=== PATIENT | male | born 1935 | race Two or more races ===

== ENCOUNTER 2024-05-13 09:53 | Inpatient (IN) | payer OTHER, MEDICAID, MEDICARE, SELFPAY ==
[2024-05-13] VITALS (11 sets, daily range): BP systolic 105–166; BP diastolic 56–76; PULSE 16–115; RESP 14–20; TEMP 36.3–37.5; O2SAT 95–99; BMI 26.9
--- NOTE | 2024-05-13 10:16 | EKG_ITS ---
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
--- NOTE | 2024-05-13 10:16 | XR_ITS ---
Examination: CT brain head without contrast. 2-D sagittal coronal reconstructions Date and time of exam:May 13, 2024 1204 hours INDICATIONS: Altered mental status today CTDI: vol (mGy):54.5 DLP: (mGycm):1134 Technique: Multiple CT axial sections of the brain have been obtained, 5 mm slice thickness. Contrast has not been administered. 2-D sagittal, coronal reconstructions have been obtained Low dose protocols were performed. One or more of the following dose reduction techniques were used; automated exposure control, adjustment of the mA and/or KV according to patient size, use of iterative reconstruction technique. Findings: No significant ventricular enlargement. Small old appearing infarct left cerebellar hemisphere Intra-axial or extra-axial hemorrhage density is not seen. No mass effect or midline shift Basal cisterns are not remarkable. Fourth ventricle is midline. Cranial vault intact. Impression: Negative for acute hemorrhage, mass effect or midline shift
--- NOTE | 2024-05-13 10:16 | PD.EDWEAK ---
ED Weakness RME/HPI General Chief complaint: Altered Mental Status Stated complaint: AMS Time Seen by Provider: 05/13/24 10:07 Arrival date/time: 05/13/24 09:53 RME / HPI RME / HPI Narrative: This section includes all my notes and documentations, including HPI, PE, MDM, Procedure Notes, and PLAN. Dipak Conner MD HPI: 88 year old male with PMH of Parkinson's disease, CVA, hypertension, type 2 diabetes, hypothyroidism, BPH presents to the ED BIBA from home for evaluation of weakness today. Patient reports this morning while trying to get out of bed felt very weak and unsteady. No other associated symptoms reported. Denies fevers, chills, sweats, congestion, cough, shortness of breath, chest pain, abdominal pain, n/v/d, or urinary symptoms. Per medics, daughter who was at home reported patient has similar presentation with previous UTI's. When I talked to the daughter who lives with him over the phone later, she had completely different story. Normally, patient is alert and oriented and ambulatory. Last night, he went to bed around 7 PM and he was his normal self. Daughter went to work this morning without seeing him. Around 8 to 8:30 AM, she got a phone call from [facility] caregivers. Who noted severe confusion and urinary incontinence. ROS: Can't obtain from the patient due to AMS. Physical Exam: General: Alert and oriented X 1. No acute distress. Eyes: Conjunctivae and lids clear. EOMI. PERRL. ENT: No nasal congestion. Pharynx normal. Tympanic membrane normal bilaterally. Neck: Supple. No carotid bruit. No JVD. Heart: RRR. Lungs: No respiratory distress. Good air movement. No rhonchi, wheezing, rales. Abdomen: Soft and nontender. Legs: No clubbing, cyanosis, edema. Skin: Warm and dry. Neuro: Alert and oriented X 1. Cranial Nerves II-XII grossly intact. No peripheral motor deficits. Musculoskeletal: All major joints and bones are not tender with no limited ROM. I reviewed EMS notes. I reviewed all diagnostic test results. My interpretation of the EKG is sinus rhythm with nonspecific ST-T changes. My interpretation of the chest x-ray is equivocal infiltrates. My review of the head CT report is no acute findings. Blood tests and urine tests are unremarkable, except Mg 1.4 At this point, diagnoses include AMS, pneumonia, and hypomagnesemia. Treatment here included Rocephin 1 g IV and Zithromax 500 mg IV and MgSO4 2 gram IV. No significant improvement noted subjectively and objectively. I discussed the case with our telehealth neurologist and our hospitalist. About the presentation and exam and diagnostics and treatments here. And need of further care in the hospital. Will accept the patient. Dipak Conner MD Related Data Home Medications ?Medication ?Instructions ?Recorded ?Confirmed Levothyroxine * (SYNTHROID *) 50 mcg PO DAILY ##0 08/18/12 01/22/23 Metformin Hcl 1,000 mg PO BID ##0 08/18/12 01/22/23 gabapentin 300 mg capsule 300 mg PO HS ##0 08/18/12 01/22/23 (Neurontin) tamsulosin 0.4 mg capsule (Flomax) 0.4 mg PO DAILY ##0 08/18/12 01/22/23 clopidogrel 75 mg tablet (Plavix) 75 mg PO QDAY #0 tabs 11/02/13 01/22/23 insulin glargine 100 unit/mL 10 unit subcut HS 90 days ##0 11/03/13 01/22/23 subcutaneous solution (Lantus U-100 Insulin) donepezil 5 mg tablet (Aricept) 10 mg PO HS #0 tabs 03/14/15 01/22/23 albuterol sulfate 4 mg 4 mg PO BID ##0 05/18/16 01/22/23 tablet,extended release,12 hr atorvastatin 10 mg tablet (Lipitor) 10 mg PO HS #0 tabs 05/18/16 01/22/23 dutasteride 0.5 mg capsule 0.5 mg PO QDAY 11/26/17 01/22/23 primidone 50 mg tablet 25 mg PO DAILY 11/26/17 01/22/23 baclofen 10 mg tablet 10 mg PO QHSPRN PRN Muscle Spasm 08/02/21 01/22/23 carbidopa ER 50 mg-levodopa 200 mg 1 tab PO BID 08/02/21 01/22/23 tablet,extended release glipizide 10 mg tablet 10 mg PO BID 08/02/21 01/22/23 loratadine 10 mg tablet 10 mg PO QAM 08/02/21 01/22/23 omeprazole 20 mg tablet,delayed 20 mg PO QDAY 08/02/21 01/22/23 release acetaminophen 500 mg tablet 500 mg PO Q6H PRN Pain 12/05/21 01/22/23 (Acetaminophen Extra Strength) multivitamin 1 tab PO QAM 12/05/21 01/22/23 albuterol sulfate 4 mg tablet 4 mg PO BID 10/15/23 10/15/23 aspirin 81 mg tablet 81 mg PO QPM 10/15/23 10/16/23 atorvastatin 10 mg tablet 10 mg PO QPM 10/15/23 10/15/23 baclofen 10 mg tablet 10 mg PO QDAY 10/15/23 10/15/23 donepezil 10 mg tablet 10 mg PO QDAY 10/15/23 10/15/23 dutasteride 0.5 mg capsule 0.5 mg PO QDAY 10/15/23 10/15/23 gabapentin 300 mg capsule 300 mg PO QPM 10/15/23 10/16/23 levothyroxine 50 mcg tablet 50 mcg PO QDAY 10/15/23 10/16/23 loratadine 10 mg tablet 10 mg PO QDAY 10/15/23 10/15/23 omeprazole 20 mg capsule,delayed 20 mg PO TID 10/15/23 10/16/23 release primidone 50 mg tablet 50 mg PO BID 10/15/23 10/16/23 tamsulosin 0.4 mg capsule 0.4 mg PO QDAY 10/15/23 10/15/23 Previous Rx's ?Medication ?Instructions ?Recorded cephalexin 500 mg capsule 500 mg PO QID #20 caps 12/06/21 Allergies Allergy/AdvReac Type Severity Reaction Status Date / Time No Known Allergies Allergy Verified 11/09/23 07:56 Review of Systems Review of Systems Systems Reviewed: All systems reviewed, normal except as documented Past Medical History Past Medical History NEUROLOGIC: Positive Cerebrovascular Accident (2013) and Parkinson's Disease CARDIAC: Positive Atherosclerotic Heart Disease, Hypercholesterolemia, Aneurysm (TRIPLE A) and Hypertension ENDOCRINE: Positive Diabetes Mellitus Type 2 and Hypothyroidism Family History FAMILY HISTORY: Negative Family Cardiac Disorders Surgical History SURGICAL: Positive Coronary Stent; Negative Endocrine Surgery or Ear Surgery Social History SMOKING STATUS: Former smoker (Patient a former tobacco smoker; per daughter he started smoking at the age of 12 and he quit smoking about 12 years ago. ) SECOND HAND EXPOSURE: No SUBSTANCE USE: does not use ED Exam Narrative Physical exam: As noted in HPI Course Quality Measures none Orders Category Date Time Status Bedside COVID-19 Antigen Test NOW Care 05/13/24 10:17 Active Bedside Influenza A&B Antigen Test NOW Care 05/13/24 10:17 Completed COVID-19 Screening Questionnaire NOW Care 05/13/24 14:18 Active Decision to Admit X1 Care 05/13/24 14:18 Completed EKG (ED ONLY) *Do not use* NOW Care 05/13/24 10:16 Completed Saline [Insert IV] NOW Care 05/13/24 10:16 Active Straight [In and Out Catheter] X1 Care 05/13/24 10:[address] head/brain wo con Stat Exams 05/13/24 10:16 Completed EKG (ED Only) Stat Exams 05/13/24 10:16 Draft XR chest 1V portable Stat Exams 05/13/24 10:16 Completed BNP [B-Type Natriuretic Peptide] Stat Lab 05/13/24 10:20 Completed CBC Stat Lab 05/13/24 10:20 Completed CMP [Comprehensive Metabolic Panel] Stat Lab 05/13/24 10:20 Completed Magnesium Stat Lab 05/13/24 10:20 Completed TSH [Thyroid Stimulating Hormone] Stat Lab 05/13/24 10:20 Completed Troponin I Stat Lab 05/13/24 10:20 Completed UA [Urinalysis] Stat Lab 05/13/24 12:37 Completed Azithromycin Inj [Zithromax Inj] 500 mg Med 05/13/24 11:42 Discontinued Sodium Chloride 0.9% 250 ml [Ns] 250 ml IV X1 Magnesium Sulfate 2 GM Ivpb [Magnesium Sulfate Ivpb] Med 05/13/24 13:31 Active 2 gm in 50 ml IV X1 cefTRIAXone/D5w 1gm IV premix [Rocephin/D5w 1gm IV Med 05/13/24 11:42 Discontinued premix] 50 ml IV X1 Reevaluation(s) Reevaluation #1: 2300: I spoke with the patients daughter. States patient was at his baseline ~ 07:30pm last night. This morning the home health nurse found patient to be confused and urinated on self. At baseline patient is awake, alert, oriented x3, conversive. Will initiate stroke alert. Vital Signs Vital signs: Vital Signs Temperature 99.5 F 05/13/24 09:57 Pulse Rate 92 05/13/24 09:57 Respiratory Rate 19 05/13/24 09:57 Blood Pressure 130/60 05/13/24 09:57 Pulse Oximetry (%) 96 05/13/24 09:57 Oxygen Delivery Method Room Air 05/13/24 09:57 Pulse ox is 96% on room air which is adequate. Weakness MDM Narrative MDM Narrative:: Flakita Nunez am scribing for and in the presence of Dr. Conner. Patient data External records reviewed:: [facility] previous records (I reviewed admission from 10/14/2023 through 10/18/2023) Clinical information provided by:: patient, EMS and family Social determinants that could affect healthcare access:: none Patient has the following chronic illnesses:: Parkinson's disease, CVA, hypertension, type 2 diabetes, hypothyroidism, BPH How is presenting disease/condition affected by chronic disease/condition?: exacerbated by Evaluation data The following diagnostics were reviewed and interpreted by me:: lab results, radiology exam(s) and EKG tracing(s) (My interpretation of the EKG is: Sinus rhythm (92 bpm) with nonspecific ST-T changes. Dipak Conner MD) Lab and/or radiology exams considered but not ordered:: None Interpretation Summary: Ordering Physician: Dipak Conner MD Date of Service: 05/13/24 Procedure(s): XR chest 1V portable Accession Number(s): [id number] cc: Dipak Conner MD; Jeramie Jessica MD; Lamberto Grey MD~ Examination: AP chest single view Technique one AP portable upright chest single view Exam date and time: May 13, 2024 1047 hours Comparison March 21, 2022 INDICATIONS: Weakness shortness of breath beginning 3 days ago. FINDINGS: Mild opacity in the left upper lobe No significant cardiac enlargement Reduced inspiratory effort Prominent osteopenia IMPRESSION: Suspicious for early left upper lobe pneumonia Dictated By: Jeramie Jessica MD Signed By: <Electronically signed by Jeramie Jessica MD in OV> 05/13/24 1059 Medications / Prescriptions Medications or Prescriptions considered but not ordered:: None Medication administrations:: Medication Administration History Magnesium Sulfate (Magnesium Sulfate Ivpb) 2 gm in 50 mls @ 25 mls/hr IV X1 ONE Stop: 05/13/24 15:30 Discontinued Medications Azithromycin 500 mg/ Sodium (Chloride) 250 mls @ 250 mls/hr IV X1 ONE Stop: 05/13/24 12:41 Last Admin: 05/13/24 14:01 Dose: 250 mls/hr Documented By: DEE DEE Ceftriaxone Sodium/Dextrose (Rocephin/D5w 1gm Iv Premix) 50 mls @ 100 mls/hr IV X1 ONE Stop: 05/13/24 12:11 Last Infusion: 05/13/24 13:00 Dose: Infused Documented By: Admin: 05/13/24 12:27 Dose: 100 mls/hr Documented By: DEE DEE Rocephin and Zithromax and MgSO4 2 gram IV Consultations Consultation(s) initiated? (list below): No Diagnosis Weakness Differential Diagnosis: acute myocardial infarction, anemia, hypoglycemia, hypothyroidism, rhabdomyolysis, sepsis and dehydration Most likely diagnosis given after review of the tests above:: AMS and pneumonia and hypomagnesemia Admission Indicated Admission indicated?: indicated Explain why admission is indicated or not indicated:: AMS and pneumonia and hypomagnesemia Admission Request Was there a request for admission?: Yes Admission Attestation Admission request attestation: Discussed case with Hospitalist service regarding admission. Discussed patients ED course, exam findings, labs, and radiology results. The Hospitalist [agrees,declines] to accept the patient for admission. Disposition Plan Disposition Plan: Admit Discharge Plan Plan Patient Disposition: Admit Acute Care w/in Hospital Prescriptions/Referrals Prescriptions/Med Rec: No Action dutasteride 0.5 mg capsule 0.5 mg PO QDAY primidone 50 mg tablet 25 mg PO DAILY tamsulosin [Flomax] 0.4 MG capsule,extended release 24hr 0.4 mg PO DAILY Qty: 0 gabapentin [Neurontin] 300 MG capsule 300 mg PO HS Qty: 0 Levothyroxine * (SYNTHROID *) 50 MCG tablet 50 mcg PO DAILY Qty: 0 Metformin Hcl 1,000 MG tablet 1,000 mg PO BID Qty: 0 clopidogrel [Plavix] 75 MG tablet 75 mg PO QDAY Qty: 0 insulin glargine [Lantus U-100 Insulin] 100 U/ML solution 10 unit Sub-Q HS 90 Days Qty: 0 donepezil [Aricept] 5 MG tablet 10 mg PO HS Qty: 0 atorvastatin [Lipitor] 10 MG tablet 10 mg PO HS Qty: 0 albuterol sulfate 4 MG tablet extended release 12 hr 4 mg PO BID Qty: 0 multivitamin Tablet 1 tab PO QAM Rx Instructions: Bottle also said Multimineral. acetaminophen [Acetaminophen Extra Strength] 500 mg Tablet 500 mg PO Q6H PRN (Reason: Pain) cephalexin 500 mg capsule 500 mg PO QID Qty: 20 0RF glipizide 10 mg Tablet 10 mg PO BID carbidopa-levodopa 50-200 mg tablet extended release 1 tab PO BID Patient Comments: TAKE 1 TABLET BY MOUTH TWICE DAILY baclofen 10 mg tablet 10 mg PO QHSPRN PRN (Reason: Muscle Spasm) loratadine 10 mg Tablet 10 mg PO QAM omeprazole 20 mg Tablet,Delayed Release (Dr/Ec) 20 mg PO QDAY primidone 50 mg Tablet 50 mg PO BID tamsulosin 0.4 mg Capsule 0.4 mg PO QDAY atorvastatin 10 mg Tablet 10 mg PO QPM donepezil 10 mg Tablet 10 mg PO QDAY albuterol sulfate 4 mg Tablet 4 mg PO BID baclofen 10 mg Tablet 10 mg PO QDAY levothyroxine 50 mcg Tablet 50 mcg PO QDAY gabapentin 300 mg Capsule 300 mg PO QPM omeprazole 20 mg Capsule,Delayed Release(Dr/Ec) 20 mg PO TID aspirin 81 mg Tablet 81 mg PO QPM loratadine 10 mg Tablet 10 mg PO QDAY dutasteride 0.5 mg Capsule 0.5 mg PO QDAY Referrals: Lamberto Grey MD [Primary Care Provider] - In 1 week Problem List Clinical Impression: Altered mental status, Pneumonia, Hypomagnesemia Patient/Caregiver Discharge Instructions Print Language: Turkish Stand Alone Forms: Dionne Award Info., Patient Portal Info Letter
[2024-05-13 10:27] LABS: Basophils # (Auto) 0.1 Thou/mm3 (0.0-0.2); Basophils % (Auto) 1 % (0-2.5); Eosinophils # (Auto) 0.3 Thou/mm3 (0.0-0.5); Eosinophils % (Auto) 3 % (0-10); Hematocrit 36.7 % (41.0-53.0); Hemoglobin 11.9 g/dL (13.5-16.0); Immature Granulocytes % (Auto) 4 % (0-0); Lymphocytes # (Auto) 0.9 Thou/mm3 (1.0-4.8); Lymphocytes % (Auto) 8 % (10-50); Mean Corpuscular HGB Conc 32.4 g/dl (31.0-37.0); Mean Corpuscular Hemoglobin 28.7 pg (25.0-35.0); Mean Corpuscular Volume 88 fL (80-100); Monocytes # (Auto) 1.7 Thou/mm3 (0.0-0.8); Monocytes % (Auto) 16 % (0-12); Neutrophils # (Auto) 7.7 Thou/mm3 (1.8-7.7); Neutrophils % (Auto) 70 % (37-80); Nucleated Red Blood Cell % 0 /100 WBC (0); Platelet Count 296 Thou/mm3 (140-440); RDW Standard Deviation 49.9 fL (35.1-43.9); Red Blood Count 4.15 Miln/mm3 (4.50-5.90); White Blood Count 11.1 Thou/mm3 (3.8-10.6)
--- NOTE | 2024-05-13 10:30 | PC.NURSE ---
DARI; per EMS report, pt coming from [facility]; per family, pt is more confused and family states that he is ambulatory but today, he was exhibting ataxic gait. Pt has hx of CVA that has left him with L-sided deficits. Pt also has HTN and hypothyroidism. Pt connected to monitors at this time.
[2024-05-13 10:44] LABS: B-Type Natriuretic Peptide 41 pg/mL (0-100)
[2024-05-13 10:54] LABS: Alanine Aminotransferase 61 U/L (10-49); Albumin, Serum 4.3 gm/dL (3.4-4.8); Albumin/Globulin Ratio 1.6 (1.2-2.2); Alkaline Phosphatase 88 U/L (46-116); Anion Gap 7 (7-16); Aspartate Amino Transferase 60 U/L (0-34); BUN/Creatinine Ratio 17 Ratio (12-20); Bilirubin,Total 0.5 mg/dL (0.3-1.2); Blood Urea Nitrogen 17 mg/dL (9-23); Calcium 9.3 mg/dL (8.3-10.6); Calcium (Corrected) 9.3 mg/dL (8.5-10.1); Chloride 98 mMol/L (98-107); Estimated Creatinine Clearance 44.4 mL/min (>60); Globulin 2.7 gm/dL (2.3-3.5); Glucose 193 mg/dL (74-106); Magnesium 1.4 mg/dL (1.6-2.6); Osmolality,Calculated 272 (275-295); Sodium 133 mMol/L (136-145); Troponin I < 0.020 ng/mL (0.0-0.045); eGFR > 60 See Note
[2024-05-13] MEDS: cefTRIAXone/D5w 1gm IV premix 50 ML IV (12:27)
[2024-05-13 12:47] LABS: Collection Type, Urine Clean Catch
[2024-05-13 12:51] LABS: Bilirubin,Urine Negative (Negative); Blood,Urine Negative (Negative); Clarity,Urine Clear (Clear/Hazy); Color,Urine Lt-Yellow (Lt Yel-Yel); Glucose, Urine Trace (Negative); Ketones,Urine Negative (Negative); Leukocyte Esterase,Urine Negative (Negative); Nitrite,Urine Negative (Negative); Protein,Urine Negative (Neg - Trace); RBC,Urine 2 /hpf (0-3); Squamous Epithelial Cell,Urine 1 /hpf (0-5); Urobilinogen,Urine Negative mg/dL (0.0-1.0); WBC,Urine 1 /hpf (0-5)
--- NOTE | 2024-05-13 13:28 | PC.NURSE ---
stroke alert called per SYLVIE Ross at 0730 last pm per family.
--- NOTE | 2024-05-13 13:30 | PC.NURSE ---
Per Dr. Conner no CTA to be done for stroke alert requesting teleneuro consult first and will see what teleneurologist reccomends.
--- NOTE | 2024-05-13 13:42 | PC.NURSE ---
Dr. Mir Irving, teleneurologist consulting with patient, son at bedside.
--- NOTE | 2024-05-13 13:49 | PC.NURSE ---
Per Dr. Mir Irving he will call Dr. Conner regarding consult and reccomendations, not a candidate for [facility].
[2024-05-13] MEDS: AZITHROMYCIN INJ 500 MG in SODIUM CHLORIDE 0.9% 250 ML 250 ML 250 MG IV (14:01)
--- NOTE | 2024-05-13 14:02 | PD.TNEURO ---
Tele Neuro Consultation Consultation Date 05/13/24 Most Recent Vital Signs Last Vital Signs Temp 99.5 F 05/13/24 11:49 Pulse 16 L 05/13/24 13:51 Resp 17 05/13/24 13:51 BP 122/71 05/13/24 13:51 Pulse Ox 96 05/13/24 13:51 O2 Del Method Room Air 05/13/24 13:51 Consultation Narrative [facility] Tele[facility]urology Consult [facility] Patient Name:???Obdulio Manuel Date of :???1935 Identification Number:??? Date of Service:???05/13/2024 13:38:59 Diagnosis:?R41.0 - Disorientation, unspecified Impression: ?88 y/o man with h/o DM, dementia, hypothyroidism, COPD, CAD, AAA and lung cancer who presents with AMS and generalized weakness. Patient back to his baseline. Admit for AMS work-up. Our recommendations are outlined below. Recommendations: ? Stroke/Telemetry Floor ? Neuro Checks ? Bedside Swallow Eval ? DVT Prophylaxis ? IV Fluids, Normal Saline ? Head of Bed 30 Degrees ? Euglycemia and Avoid Hyperthermia (PRN Acetaminophen) ? Initiate Clopidogrel 75 mg daily ? Antihypertensives PRN if Blood pressure is greater than 220/120 or there is a concern for End organ damage/contraindications for permissive HTN. If blood pressure is greater than 220/120 give labetalol PO or IV or Vasotec IV with a goal of 15% reduction in BP during the first 24 hours. ?toxic, metabolic and infectious work-up as per ED and primary team Sign Out: ? Discussed with Emergency Department Provider Advanced Imaging: Advanced Imaging Deferred because: Low NIHSS and patient is back to his baseline. Hospice patient. Metrics: Last Known Well: 05/12/2024 19:00:00 Dispatch Time: 05/13/2024 13:38:59 Arrival Time: 05/13/2024 09:53:00 Initial Response Time: 05/13/2024 13:40:06Symptoms: generalized weakness. Initial patient interaction: 05/13/2024 13:41:22 NIHSS Assessment Completed: 05/13/2024 13:48:13Patient is not a candidate for Thrombolytic. Thrombolytic Medical Decision: 05/13/2024 13:48:14Patient was not deemed candidate for Thrombolytic because of following reasons: LKW outside 4.5 hr window. . Resolved symptoms . CT head showed no acute hemorrhage or acute core infarct. Primary Provider Notified of Diagnostic Impression and Management Plan on: 05/13/2024 13:53:43 History of Present Illness:Patient is a 88 year old Male. Patient was brought by EMS for symptoms of generalized weakness. 88 y/o man with h/o DM, dementia, hypothyroidism, COPD, CAD, AAA and lung cancer who presents with AMS and generalized weakness. Emergent telestroke consult requested for AMS and generalized weakness. Last reported normal at 1930 yesterday. Patient's son at bedside who provided the history. Patient is in hospice care due to lung cancer as per patient's son. Patient's back to his baseline at this time as per patient's son. CT brain reviewed and case discussed with the ED attending (Dr. Conner). Medications: No Anticoagulant use? Antiplatelet use:?Yes?Plavix Reviewed EMR for current medications Allergies:? NKDA Allergies Unable To Obtain Due To:?Patient Is Confused Social History: Smoking: Former Alcohol Use: No Drug Use: No Family History: Family History Cannot Be Obtained Because:Patient Is Confused ROS :?ROS Cannot Be Obtained Because:? Patient Is Confused Past Surgical History: Past Surgical History Cannot Be Obtained Because: Patient Is Confused There Is No Surgical History Contributory To Today?s Visit Examination: BP(122/71),?Pulse(85),?Blood Glucose(193) 1A: Level of Consciousness - Alert; keenly responsive?+ 0 1B: Ask Month and Age - 1 Question Right?+ 1 1C: Blink Eyes & Squeeze Hands - Performs Both Tasks?+ 0 2: Test Horizontal Extraocular Movements - Normal?+ 0 3: Test Visual Grimes - No Visual Loss?+ 0 4: Test Facial Palsy (Use Grimace if Obtunded) - Normal symmetry?+ 0 5A: Test Left Arm Motor Drift - No Drift for 10 Seconds?+ 0 5B: Test Right Arm Motor Drift - No Drift for 10 Seconds?+ 0 6A: Test Left Leg Motor Drift - No Drift for 5 Seconds?+ 0 6B: Test Right Leg Motor Drift - No Drift for 5 Seconds?+ 0 7: Test Limb Ataxia (FNF/Heel-Cobb) - No Ataxia?+ 0 8: Test Sensation - Normal; No sensory loss?+ 0 9: Test Language/Aphasia - Normal; No aphasia?+ 0 10: Test Dysarthria - Normal?+ 0 11: Test Extinction/Inattention - No abnormality?+ 0 NIHSS Score:?1 Pre-Morbid Modified Alyse Scale:4 Points = Moderately severe disability; unable to walk and attend to bodily needs without assistance Spoke with :?Dr. Conner This consult was conducted in real time using interactive audio and video technology. Patient was informed of the technology being used for this visit and agreed to proceed. Patient located in hospital and provider located at home/office setting. Patient is being evaluated for possible acute neurologic impairment and high probability of imminent or life-threatening deterioration. I spent total of 25 minutes providing care to this patient, including time for face to face visit via telemedicine, review of medical records, imaging studies and discussion of findings with providers, the patient and/or family. Dr Mir Irving [facility] For Inpatient follow-up with [facility] physician please call [facility] at . As we are not an outpatient service for any post hospital discharge needs please contact the hospital for assistance. If you have any questions for the [facility] physicians or need to reconsult for clinical or diagnostic changes please contact us via [facility] at .
[2024-05-13] MEDS: Magnesium Sulfate 2 GM Ivpb 2 GM/50 ML BAG IV (15:19)
--- NOTE | 2024-05-13 15:38 | PC.NURSE ---
Dr. Philip at bedside to evaluate patient for admission.
--- NOTE | 2024-05-13 16:23 | PC.NURSE ---
Spoke with Dr. Philip and Dr. Teran regarding admit for patient. Per. Dr. Teran he will take a look and place orders.
--- NOTE | 2024-05-13 17:22 | ESHP_ITS ---
<Statement entered by Misha Quinn MD - 05/14/24 07:43> Patient was seen and examined by me personally. I agree with most of the assessment and plan as discussed with the advisory internship physician, and my attending, Dr. Cortez. Patient with history of dementia, p/w encephalopathic episode in the morning when caregiver arrived. At baseline in ED. Vitals, labs reviewed; Head CT neg. Son concerned about worsening weakness. Will obtain PT eval, discuss dispo options with family. Misha Quinn MD, PGY-3 Documentation for date of: 05/13/24 HPI History of Present Illness Chief complaint: Altered mental status History of present illness: Patient is Sinhala-speaking and does not remember the history. So history was taken from his daughter through phone call. 88-year-old male with past medical history of CAD s/p PCI, insulin-dependent diabetes mellitus, hypothyroidism, parkinsonism, history of CVA, BPH, dementia, AAA, COPD on hospice care brought to the hospital from home with chief complaints of altered mental status since the morning of day of admission. Patient was recently diagnosed to have pulmonary nodule of 18 mm and then attempted to do CT guided biopsy, the procedure was unsuccessful as there is risk of damaging the lung parenchyma and vessels, after discussing goals of care with Dr. Conner family opted for hospice care. Patient was apparently normal till last night. Patient went to bed at 7:45 PM and after waking up in the morning, noted to have generalized weakness. Patient was normally able to mobilize around the house with the help of walker for shorter distance but generally takes the help of the property caretaker for his daughter. This morning when the property caretaker is walking him to bathroom, patient was so weak and have difficulty in walking to the bathroom and also noticed spontaneous soiling of his clothes which he used to do occasionally. Later, patient complained of visual hallucination saying that someone is seeing him from the camera. Denies fever, shortness of breath, nausea, vomiting, diarrhea, weakness of extremities, abdominal pain, burning micturition, increased frequency of micturition. When evaluated in the ED, patient is back to his normal baseline as per his son by the bedside. Patient answered all the questions appropriately. ED Course: -Initial vitals were blood pressure 130/60 mmHg, pulse rate 92/min, respiratory rate 19/min, SpO2 96% with room air -Labs significant for WBC 11.1, Hb 11.9, sodium 133, potassium 4, chloride 98, bicarb 28, BUN 17, creatinine 1, glucose 193, magnesium 1.4, AST 60, ALT 61. Urine analysis showed no signs of infection. Head CT done is negative for hemorrhage. No consolidation noted on chest x-ray. -In the ED, patient was given magnesium, ceftriaxone and azithromycin. Neurology was consulted and appreciated the recommendations. -Patient was admitted for acute encephalopathy. Past medical history: Insulin-dependent diabetes mellitus, CAD, hypothyroidism, hypertension, parkinsonism, dementia, history of CVA, COPD, suspicion of lung malignancy Past surgical history history: CAD s/p PCI, surgery for carpal tunnel syndrome Social history: Ex-smoker, smoked from the age of [age], almost 50 pack years, occasional alcoholic, denies other illicit drug abuse. Allergies: NKDA Review of Systems Review of Systems Narrative Review of Systems: Constitutional: No Weight Change, No Fever, No Chills, No Night Sweats, Fatigue, No Malaise ENT/Mouth: No Hearing Changes, No Ear Pain, No Nasal Congestion, No Sinus Pain, No Hoarseness, No sore throat, No Rhinorrhea, No Swallowing Difficulty Eyes: No Eye Pain, No Swelling, No Redness, No Foreign Body, No Discharge, No Vision Changes Cardiovascular: No Chest Pain, No SOB, No PND, No Dyspnea on Exertion, No Orthopnea, No Edema, No Palpitations Respiratory: No Cough, No Sputum, No Wheezing, No Dyspnea Gastrointestinal: No Nausea, No Vomiting, No Diarrhea, No Constipation, No Pain, No Heartburn, No Anorexia, No Dysphagia, No Hematochezia, No Melena, No Flatulence, No Jaundice Genitourinary: No Dysuria, No Urinary Frequency, No Hematuria, No Urinary Incontinence, No Urgency, No Flank Pain, No Urinary Flow Changes, No Hesitancy Musculoskeletal: No Arthralgias, No Myalgias, No Joint Swelling, No Joint Stiffness, No Back Pain, No Neck Pain, No Injury History Skin: No Skin Lesions, No Pruritis Neuro: No Weakness, No Numbness, No Paresthesias, No Loss of Consciousness, No Syncope, No Dizziness, No Headache, Coordination Changes, No Recent Falls Exam Vital Signs Temp Pulse Resp BP Pulse Ox O2 Del Method 99.1 F 83 16 137/68 H 98 Room Air 05/13/24 16:24 05/13/24 16:24 05/13/24 16:24 05/13/24 16:24 05/13/24 16:24 05/13/24 16:24 Narrative Exam General: Awake. Lying comfortably on the bed unable to respond to all questions HEENT: Normocephalic, atraumatic, mucous membranes moist. Heart: Regular rate and rhythm, no murmurs. Lungs: Clear to auscultation with no wheezing or crackles. Abdomen: Soft, nondistended,positive bowel sounds. ?No guarding or rebound tenderness. Mild tenderness in the left lower quadrant. Neurologic: Alert and oriented x3, no gross neurological deficit, and patient able to move all 4 extremities. Extremities: No edema. Skin: No rash or ecchymoses. Results: Labs 05/14/24 04:47 05/14/24 04:47 Labs: Short CBC 05/13/24 Range/Units 10:20 WBC 11.1 H (3.8-10.6) Thou/mm3 Hgb 11.9 L (13.5-16.0) g/dL Hct 36.7 L (41.0-53.0) % Plt Count 296 (140-440) Thou/mm3 BMP 05/13/24 10:20 Sodium 133 L Potassium 4.0 Chloride 98 Carbon Dioxide 28.0 BUN 17 Creatinine 1.0 Glucose 193 H Calcium 9.3 Cardiac Enzymes 05/13/24 Range/Units 10:20 Troponin I < 0.020 (0.0-0.045) ng/mL Liver Function 05/13/24 Range/Units 10:20 Total Bilirubin 0.5 (0.3-1.2) mg/dL AST 60 H (0-34) U/L ALT 61 H (10-49) U/L Alkaline Phosphatase 88 (46-116) U/L Albumin 4.3 (3.4-4.8) gm/dL Urine 05/13/24 Range/Units 12:37 Urine Color Lt-Yellow (Lt Yel-Yel) Urine Clarity Clear (Clear/Hazy) Urine pH 5.0 (5.0-7.0) Ur Specific [place] 1.020 (1.001-1.035) Urine Protein Negative (Neg - Trace) Urine Glucose (UA) Trace (Negative) Quality Measures Quality Measures none Advance care planning discussed with:: patient, child and legal surragate Medications Home Medications and Allergies Home Medications ?Medication ?Instructions ?Recorded ?Confirmed ?Type Levothyroxine * (SYNTHROID *) 50 mcg PO DAILY ##0 08/18/12 01/22/23 History Metformin Hcl 1,000 mg PO BID ##0 08/18/12 05/13/24 History tamsulosin 0.4 mg capsule (Flomax) 0.8 mg PO DAILY ##0 08/18/12 05/13/24 History clopidogrel 75 mg tablet (Plavix) 75 mg PO QDAY #0 tabs 11/02/13 01/22/23 History insulin glargine 100 unit/mL 5 unit subcut BID 90 days ##0 11/03/13 05/13/24 History subcutaneous solution (Lantus U-100 Insulin) atorvastatin 10 mg tablet (Lipitor) 10 mg PO HS #0 tabs 05/18/16 05/13/24 History primidone 50 mg tablet 25 mg PO DAILY 11/26/17 01/22/23 History carbidopa ER 50 mg-levodopa 200 mg 1 tab PO BID 08/02/21 05/13/24 History tablet,extended release glipizide 10 mg tablet 10 mg PO BID 08/02/21 05/13/24 History loratadine 10 mg tablet 10 mg PO QAM 08/02/21 05/13/24 History acetaminophen 500 mg tablet 500 mg PO Q6H PRN Pain 12/05/21 05/13/24 History (Acetaminophen Extra Strength) multivitamin 1 tab PO QAM 12/05/21 05/13/24 History albuterol sulfate 4 mg tablet 4 mg PO BID 10/15/23 05/13/24 History aspirin 81 mg tablet 81 mg PO QPM 10/15/23 05/13/24 History baclofen 10 mg tablet 10 mg PO HS PRN Cramps 10/15/23 05/13/24 History donepezil 10 mg tablet 10 mg PO QDAY 10/15/23 05/13/24 History dutasteride 0.5 mg capsule 0.5 mg PO QDAY 10/15/23 05/13/24 History gabapentin 300 mg capsule 300 mg PO QPM 10/15/23 10/16/23 History levothyroxine 50 mcg tablet 50 mcg PO QDAY 10/15/23 10/16/23 History omeprazole 20 mg capsule,delayed 20 mg PO EVERYOTHERDAY 10/15/23 05/13/24 History release primidone 50 mg tablet 50 mg PO BID 10/15/23 05/13/24 History ascorbic acid (vitamin C) 500 mg 500 mg PO QDAY 05/13/24 05/13/24 History tablet (Vitamin C) cholecalciferol (vitamin D3) 125 125 mcg PO QDAY 05/13/24 05/13/24 History mcg (5,000 unit) tablet (Vitamin D3) ferrous sulfate 325 mg (65 mg 325 mg PO TID 05/13/24 05/13/24 History iron) tablet,delayed release insulin aspart U-100 100 unit/mL 1 sliding scale dose subcut 05/13/24 05/13/24 History (3 mL) subcutaneous pen (Novolog USEASDIRECTD FlexPen U-100 Insulin aspart) vitamin B complex 1 tab PO QDAY 05/13/24 05/13/24 History Allergies Allergy/AdvReac Type Severity Reaction Status Date / Time No Known Allergies Allergy Verified 11/09/23 07:56 Visit Medications Acetaminophen (Acetaminophen 325 Mg Tablet) 650 mg PO Q6H PRN PRN Reason: Fever >101.5 Stop: 06/12/24 16:23 Enoxaparin Sodium (Enoxaparin Sod Inj 40 Mg/0.4 Ml Syringe) 40 mg SC QDAY EHSAN Stop: 05/28/24 08:59 Ceftriaxone Sodium/Dextrose (Rocephin/D5w 1gm Iv Premix) 50 mls @ 100 mls/hr IV Q24H EHSAN Stop: 05/21/24 11:59 Magnesium Hydroxide (Milk Of Magnesia Susp 30 Ml Udc) 30 ml PO QDAY PRN; Protocol PRN Reason: CONSTIPATION Stop: 06/12/24 16:23 Ondansetron HCl (Ondansetron Inj 2 Mg/Ml Inj 2 Ml) 4 mg IV Q6H PRN; Protocol PRN Reason: NAUSEA OR VOMITING Stop: 06/12/24 16:23 Discontinued Medications Azithromycin 500 mg/ Sodium (Chloride) 250 mls @ 250 mls/hr IV X1 ONE Stop: 05/13/24 12:41 Last Infusion: 05/13/24 15:10 Dose: Infused Ceftriaxone Sodium/Dextrose (Rocephin/D5w 1gm Iv Premix) 50 mls @ 100 mls/hr IV X1 ONE Stop: 05/13/24 12:11 Last Infusion: 05/13/24 13:00 Dose: Infused Magnesium Sulfate (Magnesium Sulfate Ivpb) 2 gm in 50 mls @ 25 mls/hr IV X1 ONE Stop: 05/13/24 15:30 Last Admin: 05/13/24 15:19 Dose: 25 mls/hr Assessment & Plan Plan 88-year-old male with past medical history of CAD s/p PCI, insulin-dependent diabetes mellitus, hypothyroidism, parkinsonism, history of CVA, BPH, dementia, AAA, COPD on hospice care brought to the hospital from home with chief complaints of altered mental status since the morning of day of admission. # Acute encephalopathy, recovering # History of parkinsonism # History of dementia # History of CVA Likely worsening of his dementia vs worsening parkinsonism vs combined worsening vs metabolic vs less likely stroke. -Patient had a history of dementia, parkinsonism for which he is on carbidopa levodopa, donepezil, primidone. -Patient had history of altered sensorium without any focal neurological deficit for almost 6 hours associated with visual and auditory hallucinations. -In the ED, patient was found to be altered but by the time hospitalist team saw the patient patient is back to his baseline without any cognitive impairment. -On examination no focal neurological deficits are noted. -Labs showed elevated WBC 11.1. Urinalysis is within normal limits. AST is 60, ALT is 61. -Chest x-ray did not show any new infiltrates. Head CT is negative for hemorrhage. EKG showed normal sinus rhythm -Teleneurology was consulted and appreciated the recommendations. Plan -Admitted to telemetry for further monitoring -Will resume his parkinsonism and dementia medications. -Will avoid sedatives to prevent delirium. -Started on IV fluids 75 mL/h in suspicion of dehydration causing acute encephalopathy. -Will monitor his cognitive status regularly. -Will resume his home dose of aspirin and atorvastatin. # History of insulin-dependent diabetes mellitus -Patient is using insulin glargine, metformin, glipizide -HbA1c in 11/2023 is 7.8 Plan -HbA1c is ordered -Resumed insulin glargine 10 units subcutaneous during morning -Started on insulin sliding scale -Hypoglycemia protocol is in place # History of hypothyroidism -Patient is using levothyroxine 50 mcg at home -TSH is within normal limits as of 05/13/2024 -3.7 Plan -Free T4 is ordered -Resumed levothyroxine 50 mcg p.o. daily # History of solitary pulmonary nodule # Chronic smoker, stopped 20 years ago with 50 pack years # History of COPD # History of abdominal aortic aneurysm -18 mm pulmonary nodule is noted in the right upper chest on CT in 10/2023 -Tried to do biopsy at the same time but unsuccessful -Later goals of care discussion were done with Dr. Conner and stopped further evaluation -Patient was started on hospice care since then. -No active interventions as of now -Found to have abdominal aortic aneurysm during last hospital admission in 10/2023 and recommended regular monitoring # History of CAD s/p PCI -Resumed aspirin and atorvastatin # History of BPH -Patient is using tamsulosin and dutasteride at home -Resume his home medications -Medical reconciliation is ordered # Leukocytosis # Transaminitis Likely from dehydration due to poor oral intake -Patient and his family denies fever, shortness of breath, abdominal pain -Will continue to monitor CBC and LFTs -Started on IV fluids # Hypomagnesemia -Likely due to decreased oral intake Magnesium is 1.4 and patient received magnesium supplement in the ED -Will continue to monitor magnesium levels and treat accordingly. Hospital Maintenance: Dispo: Telemetry DVT ppx: Lovenox GI ppx: Not needed Diet: Regular IV lines: Peripheral Code status: DNR/DNI Patient plan of care was discussed with the attending physician, Dr. Cortez and senior resident Dr. Kai Lovett, PGY1 Attending Provider Attestation/Addendum I reviewed labs, imaging, EKG, home medications and prior available records. Face to face evaluation was performed by me. I have personally examined the patient and discussed assessment and plan with the IM team. I reviewed the resident note and agree with the plan with exceptions as below. 88-year-old male with history of dementia who presented with a chief complaint of altered mental status. He was found to have pneumonia. Acute encephalopathy: Likely in the setting of dehydration versus hypoactive delirium on top of dementia versus pneumonia. CT head is negative for acute changes. Started the patient on ceftriaxone/azithromycin. Ordered PT evaluation. Dementia: Likely Alzheimer's type versus in the setting of Parkinson's disease. Resume home medications. Delirium precautions. CAD in [place] heart and [place] arteries: Resume home medications.
--- NOTE | 2024-05-13 17:26 | PC.NURSE ---
Patient breif changed, soiled of urine. Clean dry brief applied, patient repositioned in bed to POC, call light within reach. Patient has no other needs at this time.
--- NOTE | 2024-05-13 17:38 | PC.CC ---
Pt Obdulio Manuel is an 88 yr old male admitted to hospitalist services for acute encephalopathy. SUSTAINABILITY OFFICER CC met with pt and son Obdulio Manuel [phone] at bedside to complete initial assessment. Pt is noted to be altered and hx provided by pts son. Pt is from [address] Per pts son, surrogate DM is pts daughter Veena Manuel [phone]. Per pts son, pt uses a walker, cane and wheel chair to support ambulation. Pt has a care provider that assist with all of pts ADLs. Pt is diabetic with insulin for management. Pt is not on dialysis. Pt does not require supplemental O2 in the home. Pt is followed by Dr. Grey for primary care. Optimal plan is for pt to return home at D/c. Per son if pt is unable to return home safely family is receptive for short term placement in SNF.
--- NOTE | 2024-05-13 18:02 | PC.NURSE ---
Patient provided with dinner tray.
[2024-05-13] MEDS: TAMSULOSIN HCL 0.4 MG CAPSULE PO (18:36)
[2024-05-13] MEDS: SODIUM CHLORIDE 0.9% 1000 ML 1,000 ML 75 ML IV (18:37)
--- NOTE | 2024-05-13 18:47 | PC.NURSE ---
Pharmacy called to request pt's Carbidopa/Levodopa medication; per pharmacy, will send down medication.
[2024-05-13] MEDS: CARBIDOPA/LEVODOPA CR 50/200 TABCR 1 TAB PO (20:10)
[2024-05-13] MEDS: INSULIN LISPRO (AdmeLOG) 1 UNIT/0.01 ML UNIT SC (20:28)
[2024-05-13] MEDS: DONEPEZIL HCL 5 MG TABLET 10 MG PO (20:29)
[2024-05-13] MEDS: ATORVASTATIN CALCIUM 10 MG TABLET PO (20:29)
[2024-05-14] VITALS: BP 130/71; PULSE 80; PULSE 89; RESP 17; TEMP 36.2; O2SAT 98
[2024-05-14 04:00] VITALS: BP 140/70; PULSE 78; RESP 18; TEMP 36.8; O2SAT 98
[2024-05-14 05:43] VITALS: BMI 26.7
[2024-05-14 05:44] LABS: Basophils # (Auto) 0.1 Thou/mm3 (0.0-0.2); Basophils % (Auto) 1 % (0-2.5); Eosinophils # (Auto) 0.4 Thou/mm3 (0.0-0.5); Eosinophils % (Auto) 3 % (0-10); Hematocrit 37.4 % (41.0-53.0); Hemoglobin 12.1 g/dL (13.5-16.0); Immature Granulocytes % (Auto) 5 % (0-0); Immature Granulocytes Auto 0.53 Thou/mm3 (0.00-0.00); Lymphocytes # (Auto) 1.1 Thou/mm3 (1.0-4.8); Lymphocytes % (Auto) 11 % (10-50); Mean Corpuscular HGB Conc 32.4 g/dl (31.0-37.0); Mean Corpuscular Hemoglobin 28.4 pg (25.0-35.0); Mean Corpuscular Volume 88 fL (80-100); Monocytes # (Auto) 1.7 Thou/mm3 (0.0-0.8); Monocytes % (Auto) 15 % (0-12); Neutrophils # (Auto) 7.2 Thou/mm3 (1.8-7.7); Neutrophils % (Auto) 66 % (37-80); Nucleated Red Blood Cell % 0 /100 WBC (0); Platelet Count 331 Thou/mm3 (140-440); RDW Standard Deviation 49.8 fL (35.1-43.9); Red Blood Count 4.26 Miln/mm3 (4.50-5.90); White Blood Count 10.9 Thou/mm3 (3.8-10.6)
[2024-05-14 06:28] LABS: Glucose Estimated Average 209 mg/dL (80-131); Hemoglobin A1C 8.9 % Hgb (4.8-6.0)
[2024-05-14 06:31] LABS: Alanine Aminotransferase 8 U/L (10-49); Albumin, Serum 4.2 gm/dL (3.4-4.8); Albumin/Globulin Ratio 1.6 (1.2-2.2); Alkaline Phosphatase 97 U/L (46-116); Anion Gap 7 (7-16); Aspartate Amino Transferase 47 U/L (0-34); BUN/Creatinine Ratio 20 Ratio (12-20); Bilirubin,Total 0.4 mg/dL (0.3-1.2); Blood Urea Nitrogen 20 mg/dL (9-23); Calcium 9.3 mg/dL (8.3-10.6); Calcium (Corrected) 9.3 mg/dL (8.5-10.1); Carbon Dioxide 29.5 mMol/L (20.0-31.0); Chloride 98 mMol/L (98-107); Estimated Creatinine Clearance 44.4 mL/min (>60); Free T4 (Free Thyroxine) 1.04 ng/dL (0.89-1.76); Globulin 2.6 gm/dL (2.3-3.5); Glucose 280 mg/dL (74-106); Osmolality,Calculated 280 (275-295); Potassium 4.3 mMol/L (3.4-5.1); Sodium 134 mMol/L (136-145); Total Protein 6.8 gm/dL (5.7-8.2); eGFR > 60 See Note
[2024-05-14] MEDS: LEVOTHYROXINE SODIUM 25 MCG TABLET 50 MCG PO (06:32)
[2024-05-14] MEDS: INSULIN LISPRO (AdmeLOG) 1 UNIT/0.01 ML UNIT SC ×4 (07:49→20:59)
[2024-05-14 08:00] VITALS: BP 132/69; PULSE 80; PULSE 88; RESP 24; TEMP 36.7; O2SAT 98
[2024-05-14] MEDS: TAMSULOSIN HCL 0.4 MG CAPSULE PO (08:32)
[2024-05-14] MEDS: ASPIRIN EC 81 MG TABEC PO (08:32)
[2024-05-14] MEDS: ENOXAPARIN SOD INJ 40 MG/0.4 ML SYRINGE SC (08:32)
[2024-05-14] MEDS: INSULIN GLARGINE (Lantus) 5 UNIT/0.05 ML (PER 5 UNITS) 10 UNIT SC (08:32)
[2024-05-14] MEDS: CARBIDOPA/LEVODOPA CR 50/200 TABCR 1 TAB PO (08:32)
--- NOTE | 2024-05-14 08:59 | PC.SS ---
Addendum entered by Cassie Palacios 05/14/24 10:26: Correction pt does not require 3 midnight hospital stay to go to SNF. Pt has [employer] which requires insurance authorization. Original Note: Follow up note: Pt will require 3 midnight hospital stay if pt decides on SNF.
[2024-05-14] MEDS: PRIMIDONE 50 MG TABLET PO ×2 (10:00→20:59)
[2024-05-14] MEDS: DUTASTERIDE 0.5 MG CAPSULE (NON-FORMULARY) PO (10:00)
--- NOTE | 2024-05-14 11:21 | PC.SS ---
SS spoke to dtr, Veena who explained if pt is unable to ambulates (get up and use the restroom) then she is requesting a SNF. Dtr later explained pt is with [facility] however, she cancels hospice services when pt comes to hospital. Pt states she understand what hospice services provides. Dtr is requesting for pt to d/c with Hospice Services. SS has sent inquiry to the local SNF using [facility].
[2024-05-14 12:00] VITALS: BP 116/64; PULSE 84; PULSE 91; RESP 20; TEMP 36.6; O2SAT 96
[2024-05-14] MEDS: cefTRIAXone/D5w 1gm IV premix 50 ML IV (12:00)
--- NOTE | 2024-05-14 12:15 | ESPR_ITS ---
Documentation for date of: 05/15/24 Subjective Subjective Interval history: Patient was seen and examined bedside. Denies any other complaints. Vitals are stable. Patient was supposed to be discharged today but waiting for physical therapy recommendations. Received physical therapy recommendation and patient was discharged around 5 PM but discharge got delayed as the patient has to be discharged on hospice. Exam Vital Signs Temp Pulse Resp BP Pulse Ox O2 Del Method 97.8 F 80 16 126/67 91 L Room Air 05/15/24 07:21 05/15/24 07:21 05/15/24 07:21 05/15/24 07:21 05/15/24 07:21 05/15/24 07:21 Narrative Exam General: Awake. HEENT: Normocephalic, atraumatic, mucous membranes moist. Heart: Regular rate and rhythm, no murmurs. Lungs: Clear to auscultation with no wheezing or crackles. Abdomen: Soft, nondistended, nontender, positive bowel sounds. ?No guarding or rebound tenderness. Neurologic: Alert and oriented x3, no gross neurological deficit, and patient able to move all 4 extremities. Extremities: No edema. Skin: No rash or ecchymoses. Objective Labs 05/15/24 04:44 05/14/24 04:47 Labs: Laboratory Results - last 24 hr 05/15/24 04:44 WBC 10.8 H RBC 4.20 L Hgb 12.0 L Hct 37.0 L MCV 88 MCH 28.6 MCHC 32.4 RDW Std Deviation 49.5 H Plt Count 315 Neut % (Auto) 69 Lymph % (Auto) 11 [place] % (Auto) 14 H Eos % (Auto) 4 Baso % (Auto) 1 Neut # (Auto) 7.5 Lymph # (Auto) 1.2 [place] # (Auto) 1.5 H Eos # (Auto) 0.5 Baso # (Auto) 0.1 Immature Gran # (Auto) 0.12 H Absolute Nucleated RBC 0.00 Immature Gran % 1 H Nucleated RBC % 0 Quality Measures Quality Measures VTE prophylaxis Advance care planning discussed with:: child and legal surragate Assessment & Plan Assessment Current Active Medications: Generic Name Dose Route Start Last Admin Trade Name Freq PRN Reason Stop Dose Admin Acetaminophen 650 mg 05/14/24 13:32 Acetaminophen 325 Mg Tablet PO 06/12/24 16:23 Q6H PRN Fever >100.3 Aspirin 81 mg 05/14/24 09:00 05/15/24 07:55 Aspirin Ec 81 Mg Tabec PO 06/13/24 08:59 81 mg QDAY EHSAN Administration Atorvastatin Calcium 10 mg 05/13/24 21:00 05/14/24 20:59 Atorvastatin Calcium 10 Mg Tablet PO 06/12/24 20:59 10 mg HS EHSAN Administration Baclofen 10 mg 05/14/24 08:19 Baclofen 10 Mg Tablet PO 06/13/24 08:18 HS PRN MUSCLE Cramps Carbidopa/Levodopa 1 tab 05/13/24 18:15 05/15/24 08:01 Carbidopa/Levodopa Cr 50/200 Tabcr PO 06/12/24 18:14 1 tab QDAY EHSAN Administration Dextrose 25 ml 05/13/24 17:38 Dextrose 50%-Water Inj 50 Ml Syringe IV 06/12/24 17:37 Q15MIN PRN BG 50-70 responsive npo pt Dextrose 50 ml 05/13/24 17:38 Dextrose 50%-Water Inj 50 Ml Syringe IV 06/12/24 17:37 Q15MIN PRN BG <50 OR BG <70 & pt unresponsive Donepezil HCl 10 mg 05/13/24 21:00 05/14/24 20:59 Donepezil Hcl 5 Mg Tablet PO 06/12/24 20:59 10 mg HS EHSAN Administration Dutasteride 0.5 mg 05/14/24 09:00 05/15/24 09:25 Dutasteride 0.5 Mg Capsule (Non-Formulary) PO 06/13/24 08:59 0.5 mg QDAY EHSAN Administration Enoxaparin Sodium 40 mg 05/14/24 09:00 05/15/24 07:55 Enoxaparin Sod Inj 40 Mg/0.4 Ml Syringe SC 05/28/24 08:59 40 mg QDAY EHSAN Administration Glucagon 1 mg 05/13/24 17:38 Glucagon Inj 1 Mg Vial IM Q15MIN PRN BG <70, and no IV access Ceftriaxone Sodium/Dextrose 50 mls @ 100 mls/hr 05/14/24 12:00 05/15/24 12:11 Rocephin/D5w 1gm Iv Premix IV 05/21/24 11:59 100 mls/hr Q24H EHSAN Administration Insulin Glargine 10 unit 05/14/24 09:00 05/15/24 07:55 Insulin Glargine (Lantus) 5 Unit/0.05 Ml (Per 5 Units) SC 06/13/24 08:59 10 unit QDAY EHSAN Administration Insulin Human Lispro 0 unit 05/13/24 21:00 05/15/24 11:37 Insulin Lispro (Admelog) 1 Unit/0.01 Ml Unit SC 06/12/24 20:59 3 unit ACHS EHSAN Administration Protocol Levothyroxine Sodium 50 mcg 05/14/24 06:00 05/15/24 05:16 Levothyroxine Sodium 25 Mcg Tablet PO 06/13/24 05:59 50 mcg ACBR EHSAN Administration Magnesium Hydroxide 30 ml 05/13/24 16:24 Milk Of Magnesia Susp 30 Ml Udc PO 06/12/24 16:23 QDAY PRN CONSTIPATION Protocol Ondansetron HCl 4 mg 05/13/24 16:24 Ondansetron Inj 2 Mg/Ml Inj 2 Ml IV 06/12/24 16:23 Q6H PRN NAUSEA OR VOMITING Protocol Primidone 50 mg 05/14/24 09:00 05/15/24 09:25 Primidone 50 Mg Tablet PO 05/19/24 08:59 50 mg BID EHSAN Administration Tamsulosin HCl 0.4 mg 05/13/24 18:15 05/15/24 07:55 Tamsulosin Hcl 0.4 Mg Capsule PO 06/12/24 18:14 0.4 mg QDAY EHSAN Administration Plan 88-year-old male with past medical history of CAD s/p PCI, insulin-dependent diabetes mellitus, hypothyroidism, parkinsonism, history of CVA, BPH, dementia, AAA, COPD on hospice care brought to the hospital from home with chief complaints of altered mental status since the morning of day of admission. # Acute encephalopathy, recovering # History of parkinsonism # History of dementia # History of CVA Likely worsening of his dementia vs worsening parkinsonism vs combined worsening vs metabolic vs less likely stroke. -Patient had a history of dementia, parkinsonism for which he is on carbidopa levodopa, donepezil, primidone. -Patient had history of altered sensorium without any focal neurological deficit for almost 6 hours associated with visual and auditory hallucinations. -In the ED, patient was found to be altered but by the time hospitalist team saw the patient patient is back to his baseline without any cognitive impairment. -On examination no focal neurological deficits are noted. -Labs showed elevated WBC 11.1. Urinalysis is within normal limits. AST is 60, ALT is 61. -Chest x-ray did not show any new infiltrates. Head CT is negative for hemorrhage. EKG showed normal sinus rhythm -Teleneurology was consulted and appreciated the recommendations. Plan -Admitted to telemetry for further monitoring -Will resume his parkinsonism and dementia medications. -Will avoid sedatives to prevent delirium. -Started on IV fluids 75 mL/h in suspicion of dehydration causing acute encephalopathy. -Will monitor his cognitive status regularly. -Will resume his home dose of aspirin and atorvastatin. # History of insulin-dependent diabetes mellitus -Patient is using insulin glargine, metformin, glipizide -HbA1c in 11/2023 is 7.8 Plan -HbA1c is ordered -Resumed insulin glargine 10 units subcutaneous during morning -Started on insulin sliding scale -Hypoglycemia protocol is in place # History of hypothyroidism -Patient is using levothyroxine 50 mcg at home -TSH is within normal limits as of 05/13/2024 -3.7 Plan -Free T4 is ordered -Resumed levothyroxine 50 mcg p.o. daily # History of solitary pulmonary nodule # Chronic smoker, stopped 20 years ago with 50 pack years # History of COPD # History of abdominal aortic aneurysm -18 mm pulmonary nodule is noted in the right upper chest on CT in 10/2023 -Tried to do biopsy at the same time but unsuccessful -Later goals of care discussion were done with Dr. Conner and stopped further evaluation -Patient was started on hospice care since then. -No active interventions as of now -Found to have abdominal aortic aneurysm during last hospital admission in 10/2023 and recommended regular monitoring # History of CAD s/p PCI -Resumed aspirin and atorvastatin # History of BPH -Patient is using tamsulosin and dutasteride at home -Resume his home medications -Medical reconciliation is ordered # Leukocytosis, resolving # Transaminitis, transaminitis Likely from dehydration due to poor oral intake -Patient and his family denies fever, shortness of breath, abdominal pain -Will continue to monitor CBC and LFTs -downtrending -Started on IV fluids # Hypomagnesemia -Likely due to decreased oral intake Magnesium is 1.4 and patient received magnesium supplement in the ED -Will continue to monitor magnesium levels and treat accordingly. Hospital Maintenance: Dispo: Telemetry DVT ppx: Lovenox GI ppx: Not needed Diet: Regular IV lines: Peripheral Code status: DNR/DNI Patient plan of care was discussed with the attending physician, Dr. Cortez and senior resident Dr. Cedrick Lovett, PGY1 Attending Provider Attestation/Addendum I reviewed labs, imaging, EKG, home medications and prior available records. Face to face evaluation was performed by me. I have personally examined the patient and discussed assessment and plan with the IM team. I reviewed the resident note and agree with the plan with exceptions as below. 88-year-old male with history of dementia who presented with a chief complaint of altered mental status. He was found to have pneumonia. Acute encephalopathy: Likely in the setting of dehydration versus hypoactive delirium on top of dementia versus pneumonia. CT head is negative for acute changes. Started the patient on ceftriaxone/azithromycin. Ordered PT evaluation. Ordered TSH: WNL. Continue levothyroxine. Dementia: Likely Alzheimer's type versus in the setting of Parkinson's disease. Resume home medications. Delirium precautions. CAD in [place] heart and [place] arteries: Resume home medications. Uncontrolled diabetes mellitus with hyperglycemia: Started Lantus plus sliding scale insulin. Ordered A1c: 8.9. Continue home medications. Goals of care discussion/counseling: Patient will be discharged home with hospice. Discussed with social services.
--- NOTE | 2024-05-14 12:40 | PC.SS ---
Addendum entered by Cassie Palacios 05/14/24 12:46: PASRR assessment is completed Original Note: SS spoke to dtrVeena and informed her [facility] and [facility] have accepted. [facility] and [facility] have not responded. [facility] and [facility] have declined. Dtr is requesting for pt to work with PT before deciding to send pt to SNF. Dtr states if pt is able to ambulate then he will return home. Dtr is are of SNF options.
[2024-05-14 16:00] VITALS: BP 132/75; PULSE 83; PULSE 95; RESP 24; TEMP 36.4; O2SAT 97
--- NOTE | 2024-05-14 16:28 | PC.PT ---
PT eval only. Patient needs CGA for safety with transfers and ambulation. PT not indicated at this time secondary to patient has a pending referral to hospice services.
--- NOTE | 2024-05-14 16:34 | PD.RESDS ---
Planned Discharge Date 05/14/24 DS: Providers Provider Date of admission: 05/13/24 16:23 Primary care physician: Lamberto Grey MD Admitting Provider: Connor Cortez MD Attending Provider on Admission: Connor Cortez MD Consults: 05/13/24 17:01 Referral Physical Therapy Routine Comment: Physician Instructions: 05/14/24 11:09 Referral Registered Dietitian Routine Comment: for diabetes Attending Provider on DC: Antony Lovett MD Discharging Provider: Antony Lovett MD DS: Diagnosis Problem List Completed Was Problem List Reviewed/Reconciled?: Yes Hospital Course Hospital Course Hospital course: 88-year-old male with past medical history of CAD s/p PCI, insulin-dependent diabetes mellitus, hypothyroidism, parkinsonism, history of CVA, BPH, dementia, AAA, COPD on hospice care brought to the hospital from home with chief complaints of altered mental status since the morning of day of admission likely due to worsening of his parkinsonism, dementia. Patient is back to his baseline within 3 hours of hospital admission without any intervention. Patient was recently diagnosed to have pulmonary nodule of 18 mm and then attempted to do CT guided biopsy, the procedure was unsuccessful as there is risk of damaging the lung parenchyma and vessels, after discussing goals of care with Dr. Conner family opted for hospice care. Vitals are stable. Labs are within normal limits. Urine analysis showed no evidence of UTI. CT head was negative for hemorrhage. Chest x-ray showed no new infiltrates. During the hospital admission patient was tested positive for orthostatic vitals which could be due to progressing parkinsonism. Received IV fluids. No significant events during the hospital stay. Goals of care discussions are done with his daughter who is the point of care. Physical therapy was consulted and recommended that he is safe to discharge to home with hospice Patient was discharged to home with hospice with following medications and recommendations. -Follow-up with Hospice care. -Started on insulin degludec 10 units subcutaneously and stopped insulin galrgine -STOP Glipizide. Take Metformin. PCP to finalize Metformin/Insulin dosages -Recommended CGM and adjust insulin based on Glucose levels. -Recommended to continue other home medications as previously prescribed. -Take medications as prescribed. -Return to ED if symptoms persist or return # Acute encephalopathy, recovering # History of parkinsonism # History of dementia # History of CVA # History of insulin-dependent diabetes mellitus # History of hypothyroidism # History of solitary pulmonary nodule # Chronic smoker, stopped 20 years ago with 50 pack years # History of COPD # History of abdominal aortic aneurysm # History of CAD s/p PCI # History of BPH # Leukocytosis # Transaminitis Patient plan of care was discussed with the attending physician, Dr. Cortez and senior resident Dr. Kai Lovett, PGY1 Time Spent with Patient Time attestation: Total time spent providing and/or coordinating discharge services: Time spent: Greater than 30 minutes Exam Vital Signs Temp Pulse Resp BP Pulse Ox O2 Del Method 97.9 F 84 20 116/64 96 Room Air 05/14/24 12:00 05/14/24 12:00 05/14/24 12:00 05/14/24 12:00 05/14/24 12:00 05/14/24 12:00 Narrative Exam General: Awake. HEENT: Normocephalic, atraumatic, mucous membranes moist. Heart: Regular rate and rhythm, no murmurs. Lungs: Clear to auscultation with no wheezing or crackles. Abdomen: Soft, nondistended, nontender, positive bowel sounds. ?No guarding or rebound tenderness. Neurologic: Alert and oriented x3, no gross neurological deficit, and patient able to move all 4 extremities. Extremities: No edema. Skin: No rash or ecchymoses. Discharge Plan Plan Patient Disposition: Home w/HOSPICE Disposition Comment: Back to baseline Patient condition on transfer: Stable Care Plan Goals: -Follow-up with Hospice care. -Started on insulin degludec 10 units subcutaneously and stopped insulin galrgine -Recommended CGM and adjust insulin based on Glucose levels. -STOP Glipizide. Take Metformin. PCP to finalize Metformin/Insulin dosages -Recommended to continue other home medications as previously prescribed. -Take medications as prescribed. -Return to ED if symptoms persist or return Prescriptions/Referrals Prescriptions/Med Rec: New insulin degludec 100 unit/mL (3 mL) insulin pen 10 unit subcut QPM 30 Days Qty: 3 0RF (DME) blood-glucose meter Kit See Rx Instructions .Route Qty: 1 0RF Rx Instructions: As directed (DME) FreeStyle Marciano 3 Plus Sensor Device See Rx Instructions .Route Qty: 1 0RF Rx Instructions: As directed Continued primidone 50 mg tablet 25 mg PO DAILY tamsulosin [Flomax] 0.4 MG capsule,extended release 24hr 0.8 mg PO DAILY Qty: 0 Levothyroxine * (SYNTHROID *) 50 MCG tablet 50 mcg PO DAILY Qty: 0 Metformin Hcl 1,000 MG tablet 1,000 mg PO BID Qty: 0 clopidogrel [Plavix] 75 MG tablet 75 mg PO QDAY Qty: 0 atorvastatin [Lipitor] 10 MG tablet 10 mg PO HS Qty: 0 multivitamin Tablet 1 tab PO QAM Rx Instructions: Bottle also said Multimineral. acetaminophen [Acetaminophen Extra Strength] 500 mg Tablet 500 mg PO Q6H PRN (Reason: Pain) carbidopa-levodopa 50-200 mg tablet extended release 1 tab PO BID Patient Comments: TAKE 1 TABLET BY MOUTH TWICE DAILY loratadine 10 mg Tablet 10 mg PO QAM insulin aspart U-100 [Novolog FlexPen U-100 Insulin] 100 unit/mL (3 mL) Insulin Pen 1 sliding scale dose SUBCUT USEASDIRECTD Rx Instructions: if bs >200 no insulin 201-250 3units 251-300 6 units 301-350 9 units 351-400 12 units 401 or > 15 units ferrous sulfate 325 mg (65 mg iron) tablet,delayed release (DR/EC) 325 mg PO TID Patient Comments: TAKE 1 TABLET BY MOUTH THREE TIMES DAILY AFTER A MEAL vitamin B complex Tablet 1 tab PO QDAY cholecalciferol (vitamin D3) [Vitamin D3] 125 mcg (5,000 unit) Tablet 125 mcg PO QDAY donepezil 10 mg Tablet 10 mg PO QDAY albuterol sulfate 4 mg Tablet 4 mg PO BID baclofen 10 mg Tablet 10 mg PO HS PRN (Reason: Cramps) gabapentin 300 mg Capsule 300 mg PO QPM omeprazole 20 mg Capsule,Delayed Release(Dr/Ec) 20 mg PO EVERYOTHERDAY Rx Instructions: before a meal aspirin 81 mg Tablet 81 mg PO QPM dutasteride 0.5 mg Capsule 0.5 mg PO QDAY Discontinued insulin glargine [Lantus U-100 Insulin] 100 U/ML solution 5 unit Sub-Q BID 90 Days Qty: 0 glipizide 10 mg Tablet 10 mg PO BID ascorbic acid (vitamin C) [Vitamin C] 500 mg Tablet 500 mg PO QDAY primidone 50 mg Tablet 50 mg PO BID levothyroxine 50 mcg Tablet 50 mcg PO QDAY Referrals: Lamberto Grey MD [Primary Care Provider] - Patient/Caregiver Discharge Instructions Discharge Activity: resume usual activities Other Discharge Activity Instructions:: - Follow up with PCP in 1 week from discharge - Monitor blood sugar levels using glucose sensor - Take insulin Degludec 10 units daily. Continue insulin Lispro sliding scale - STOP Glipizide. Take Metformin. PCP to finalize Metformin/Insulin dosages - Take all other home medications as prescribed - Return to the ED if symptoms worsen Education Materials: Diabetes: Keeping Feet Healthy, Understanding Parkinson Disease, Diabetes Exercise Plan, Diabetes Carbs Fats Protein Print Language: Taiwanese Stand Alone Forms: [email or web address] Award Info., Patient Portal Info Letter Discharge Order Discharge Orders: Discharge (Routine); Ordered 05/14/24 Ordered By: Antony Lovett Quality Discharge Quality Measures VTE prophylaxis MD Attestestation MD Attestation I reviewed labs, imaging, EKG, home medications and prior available records. Face to face evaluation was performed by me. I have personally examined the patient and discussed assessment and plan with the IM team. I reviewed the resident note and agree with the plan with exceptions as below. 88-year-old male with history of dementia who presented with a chief complaint of altered mental status. He was found to have pneumonia. Acute encephalopathy: Likely in the setting of dehydration versus hypoactive delirium on top of dementia versus pneumonia. CT head is negative for acute changes. Started the patient on ceftriaxone/azithromycin. Ordered PT evaluation. Ordered TSH: WNL. Continue levothyroxine. Dementia: Likely Alzheimer's type versus in the setting of Parkinson's disease. Resume home medications. Delirium precautions. CAD in [place] and [place] arteries: Resume home medications. Uncontrolled diabetes mellitus with hyperglycemia: Started Lantus plus sliding scale insulin. Ordered A1c: 8.9. Monitor fingersticks.
--- NOTE | 2024-05-14 19:00 | PC.NURSE ---
PATIENTS DAUGHTER EXPRESS CONCERN REGARDING [facility], THAT SHE WOULD LIKE FOR HOSPICE TO BE ARRANGED BEFORE SENDING HER FATHER HOME SHE HAD ISSUES BEFORE IF ITS NOT DONE PRIOR TO DISCHARGE. NOTIFIED DR. VAZQUEZ, AND STATED THAT PER DR. AGUIRRE OK DELAY DISCHARGE, WILL CONTACT STATISTICS INTERN TOMORROW.
[2024-05-14 20:00] VITALS: BP 130/63; PULSE 75; PULSE 88; RESP 14; TEMP 37.2; O2SAT 96
[2024-05-14] MEDS: DONEPEZIL HCL 5 MG TABLET 10 MG PO (20:59)
[2024-05-14] MEDS: ATORVASTATIN CALCIUM 10 MG TABLET PO (20:59)
[2024-05-15] VITALS: BP 150/67; PULSE 77; PULSE 96; RESP 16; TEMP 36.6; O2SAT 94
[2024-05-15 04:00] VITALS: BP 124/63; PULSE 86; PULSE 87; RESP 20; TEMP 36.7; O2SAT 95
[2024-05-15] MEDS: LEVOTHYROXINE SODIUM 25 MCG TABLET 50 MCG PO (05:16)
[2024-05-15 06:01] LABS: Basophils # (Auto) 0.1 Thou/mm3 (0.0-0.2); Basophils % (Auto) 1 % (0-2.5); Eosinophils # (Auto) 0.5 Thou/mm3 (0.0-0.5); Eosinophils % (Auto) 4 % (0-10); Immature Granulocytes % (Auto) 1 % (0-0); Immature Granulocytes Auto 0.12 Thou/mm3 (0.00-0.00); Lymphocytes # (Auto) 1.2 Thou/mm3 (1.0-4.8); Lymphocytes % (Auto) 11 % (10-50); Mean Corpuscular HGB Conc 32.4 g/dl (31.0-37.0); Mean Corpuscular Hemoglobin 28.6 pg (25.0-35.0); Mean Corpuscular Volume 88 fL (80-100); Monocytes # (Auto) 1.5 Thou/mm3 (0.0-0.8); Monocytes % (Auto) 14 % (0-12); Neutrophils # (Auto) 7.5 Thou/mm3 (1.8-7.7); Neutrophils % (Auto) 69 % (37-80); Nucleated Red Blood Cell % 0 /100 WBC (0); Platelet Count 315 Thou/mm3 (140-440); RDW Standard Deviation 49.5 fL (35.1-43.9); White Blood Count 10.8 Thou/mm3 (3.8-10.6)
[2024-05-15 07:21] VITALS: BP 126/67; PULSE 80; RESP 16; TEMP 36.6; O2SAT 91
[2024-05-15] MEDS: INSULIN LISPRO (AdmeLOG) 1 UNIT/0.01 ML UNIT SC ×2 (07:54→11:37)
[2024-05-15] MEDS: ASPIRIN EC 81 MG TABEC PO (07:55)
[2024-05-15] MEDS: TAMSULOSIN HCL 0.4 MG CAPSULE PO ×2 (07:55)
[2024-05-15] MEDS: INSULIN GLARGINE (Lantus) 5 UNIT/0.05 ML (PER 5 UNITS) 10 UNIT SC (07:55)
[2024-05-15] MEDS: ENOXAPARIN SOD INJ 40 MG/0.4 ML SYRINGE SC (07:55)
[2024-05-15] MEDS: CARBIDOPA/LEVODOPA CR 50/200 TABCR 1 TAB PO (08:01)
[2024-05-15] MEDS: DUTASTERIDE 0.5 MG CAPSULE (NON-FORMULARY) PO (09:25)
[2024-05-15] MEDS: PRIMIDONE 50 MG TABLET PO (09:25)
--- NOTE | 2024-05-15 10:30 | PC.SS ---
Addendum entered by VASYL Linares 05/15/24 11:55: Hospice referral sent to [facility] via [employer]. Left a voicemail for Velma with [facility] to notify of referral sent and plan to d/c the patient home today. Original Note: SS update: spoke with patient's daughter, Veena Manuel regarding the patient's discharge plan. Veena informs she would like to take patient home with hospice services. Patient previously aligned with [facility] and would like to continue with them. Veena indicates family will be able to transport the patient home today. Updated bed side nurse. Informed Dr. Lovett of discharge plan and need for hospice order.
[2024-05-15 12:00] VITALS: BP 118/70; PULSE 88; RESP 21; TEMP 36.3; O2SAT 95
[2024-05-15] MEDS: cefTRIAXone/D5w 1gm IV premix 50 ML IV (12:11)
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
--- NOTE | 2024-05-15 12:26 | PC.NURSE ---
Called patient PATTI Curiel to see about pickup time for patient, no answer. Called Enmanuel (son) who stated he would try to call karson and also call the patients caregiver to schedule a pickup time. Educated son to please call back to let us know.
== END 2024-05-15 13:07 | disposition hospice, home (50) | DRG 70 ==
LOC: SERX 14:19 → SERHOLD 17:02 → S2NX 23:48 → S3SX 05-14 22:46
PROVIDERS: Admitting Provider Student in an Organized Health Care Education/Training Program; Emergency Provider Emergency Medicine; PCP Family Medicine; Visit Provider Student in an Organized Health Care Education/Training Program
DX: G93.40 Encephalopathy, unspecified (principal); J18.9 Pneumonia, unspecified organism; F02.82 Dementia in other diseases classified elsewhere, unspecified severity, with psychotic disturbance; J44.0 Chronic obstructive pulmonary disease with (acute) lower respiratory infection; E03.9 Hypothyroidism, unspecified; I25.10 Atherosclerotic heart disease of native coronary artery without angina pectoris; N40.0 Benign prostatic hyperplasia without lower urinary tract symptoms; Z98.61 Coronary angioplasty status; G20.A1 Parkinson's disease without dyskinesia, without mention of fluctuations; R91.1 Solitary pulmonary nodule; I10 Essential (primary) hypertension; Z86.73 Personal history of transient ischemic attack (TIA), and cerebral infarction without residual deficits; E86.0 Dehydration; Z79.890 Hormone replacement therapy; Z87.891 Personal history of nicotine dependence; I71.40 Abdominal aortic aneurysm, without rupture, unspecified; R74.01 Elevation of levels of liver transaminase levels; E83.42 Hypomagnesemia; Z66 Do not resuscitate; E11.65 Type 2 diabetes mellitus with hyperglycemia
CPT/HCPCS: 36415; 70450; 71045; 80053; 81001; 83036; 83735; 83880; 84439; 84443; 84484; 85025; 87400; 87811; 93005; 93225; 96365; 96366; 96367; 97162; 99285; J0456; J0696; J1650; J1815; J3475; J7030; J7050; A9270

== ENCOUNTER → 2024-05-19 | Outpatient (CLI) | payer OTHER, MEDICAID, SELFPAY ==
[2024-05-19 14:39] LABS: Free T4 (Free Thyroxine) 0.89 ng/dL (0.89-1.76)
== END | disposition home or self-care (01) ==
PROVIDERS: PCP Family Medicine; Referring Provider Family Medicine; Visit Provider Family Medicine
DX: E03.2 Hypothyroidism due to medicaments and other exogenous substances (principal)
CPT/HCPCS: 36415; 84439; 84443

== ENCOUNTER 2024-10-02 12:44 | Inpatient (IN) | payer OTHER, MEDICAID, SELFPAY ==
[2024-10-02] VITALS (8 sets, daily range): BP systolic 102–152; BP diastolic 59–93; PULSE 89–110; RESP 16–20; TEMP 36.6–37.7; O2SAT 95–98; BMI 28.8
--- NOTE | 2024-10-02 12:56 | PD.EDADULT ---
ED General RME/HPI General Chief complaint: Altered Mental Status Stated complaint: AMS Time Seen by Provider: 10/02/24 12:53 Arrival date/time: 10/02/24 12:44 Limitations: no limitations RME / HPI RME / HPI narrative: 89 year old male with history of Alzheimer's disease, dementia, CAD s/p PCI, hypothyroidism, AAA presents to the ED BIBA from home for evaluation of altered mental status today. Per caregiver at bedside, patient appears to be more confused than his baseline. While in the ED patient states he has no complaints and does not know why he was brought here. Patient answering all questions properly. Related Data Home Medications ?Medication ?Instructions ?Recorded ?Confirmed Levothyroxine * (SYNTHROID *) 50 mcg PO DAILY ##0 08/18/12 01/22/23 Metformin Hcl 1,000 mg PO BID ##0 08/18/12 05/13/24 tamsulosin 0.4 mg capsule (Flomax) 0.8 mg PO DAILY ##0 08/18/12 05/13/24 clopidogrel 75 mg tablet (Plavix) 75 mg PO QDAY #0 tabs 11/02/13 01/22/23 atorvastatin 10 mg tablet (Lipitor) 10 mg PO HS #0 tabs 05/18/16 05/13/24 primidone 50 mg tablet 25 mg PO DAILY 11/26/17 01/22/23 carbidopa ER 50 mg-levodopa 200 mg 1 tab PO BID 08/02/21 05/13/24 tablet,extended release loratadine 10 mg tablet 10 mg PO QAM 08/02/21 05/13/24 acetaminophen 500 mg tablet 500 mg PO Q6H PRN Pain 12/05/21 05/13/24 (Acetaminophen Extra Strength) multivitamin 1 tab PO QAM 12/05/21 05/13/24 albuterol sulfate 4 mg tablet 4 mg PO BID 10/15/23 05/13/24 aspirin 81 mg tablet 81 mg PO QPM 10/15/23 05/13/24 baclofen 10 mg tablet 10 mg PO HS PRN Cramps 10/15/23 05/13/24 donepezil 10 mg tablet 10 mg PO QDAY 10/15/23 05/13/24 dutasteride 0.5 mg capsule 0.5 mg PO QDAY 10/15/23 05/13/24 gabapentin 300 mg capsule 300 mg PO QPM 10/15/23 10/16/23 omeprazole 20 mg capsule,delayed 20 mg PO EVERYOTHERDAY 10/15/23 05/13/24 release cholecalciferol (vitamin D3) 125 125 mcg PO QDAY 05/13/24 05/13/24 mcg (5,000 unit) tablet (Vitamin D3) ferrous sulfate 325 mg (65 mg 325 mg PO TID 05/13/24 05/13/24 iron) tablet,delayed release insulin aspart U-100 100 unit/mL 1 sliding scale dose subcut 05/13/24 05/13/24 (3 mL) subcutaneous pen (Novolog USEASDIRECTD FlexPen U-100 Insulin aspart) vitamin B complex 1 tab PO QDAY 05/13/24 05/13/24 Previous Rx's ?Medication ?Instructions ?Recorded blood-glucose meter #1 ea 05/14/24 blood-glucose sensor (FreeStyle #1 ea 05/14/24 Marciano 3 Plus Sensor device) Allergies Allergy/AdvReac Type Severity Reaction Status Date / Time No Known Allergies Allergy Verified 11/09/23 07:56 Review of Systems Review of Systems Systems Reviewed: All systems reviewed, normal except as documented Past Medical History Past Medical History NEUROLOGIC: Positive Cerebrovascular Accident (Left sided weakness), Dementia and Parkinson's Disease CARDIAC: Positive Atherosclerotic Heart Disease, Hypercholesterolemia, Aneurysm and Hypertension RESPIRATORY: Positive Chronic Obstructive Pulmonary Disease (COPD) and Pneumonia GASTROINTESTINAL: Positive Gastrointestinal Disorders and Gastroesophageal Reflux Disease GENITOURINARY: Positive Benign Prostatic Hyperplasia MUSCULOSKELETAL: Positive Arthritis ENDOCRINE: Positive Diabetes Mellitus Type 2 and Hypothyroidism PSYCHO/SOCIAL: Positive Anxiety OTHER HISTORY: Positive Falls and Cancer (probable lung cancer, unable to do biopsy) Family History FAMILY HISTORY: Negative Family Cardiac Disorders Surgical History SURGICAL: Positive Coronary Stent Social History SMOKING STATUS: Never smoker SECOND HAND EXPOSURE: No SUBSTANCE USE: does not use ED Exam General Limitations: Present no limitations General appearance: Present alert, in no apparent distress and other (Patient is hard of hearing ) Head Head exam: Present atraumatic, normocephalic and normal inspection Eye Eye exam: Present normal appearance, PERRL and EOMI ENT ENT exam: Present normal exam, normal oropharynx and mucous membranes moist Neck Neck exam: Present normal inspection, full ROM and trachea midline Chest Chest inspection: Present normal inspection and symmetric chest wall rise Respiratory Respiratory exam: Present normal lung sounds bilaterally Cardiovascular Cardiovascular exam: Present regular rate, normal rhythm and normal heart sounds Abdominal Exam Abdominal exam: Present soft, distention and normal bowel sounds Extremities Exam Extremities exam: Present normal inspection and full ROM Back Exam Back exam: Present normal inspection and full ROM Neurological Exam Neurological exam: Present alert, oriented X3 and CN II-XII intact Psychiatric Psychiatric exam: Present normal affect and normal mood Skin Skin exam: Present warm, dry, intact and normal color Course Quality Measures none Orders Category Date Time Status Blood gas, venous NOW Care 10/02/24 12:57 Active Continuous Pulse Oximetry ONCE Care 10/02/24 12:56 Completed Discharge Routine Discharge 10/02/24 17:12 Active Ammonia Stat Lab 10/02/24 13:30 Completed B-Type Natriuretic Peptide Stat Lab 10/02/24 13:30 Completed CBC Stat Lab 10/02/24 13:30 Completed Comprehensive Metabolic Panel Stat Lab 10/02/24 13:30 Completed Prothrombin Time with INR Stat Lab 10/02/24 13:30 Completed Troponin I Stat Lab 10/02/24 13:30 Completed Urinalysis, C/S if Indicated Stat Lab 10/02/24 13:46 Completed VBG [Venous Blood Gas] Stat Lab 10/02/24 16:20 Completed Sodium Chloride 0.9% 1000 ml [Ns] 1,000 ml Med 10/02/24 14:57 Discontinued IV 999 mls/hr Vital Signs Vital signs: Vital Signs Temperature 97.9 F 10/02/24 12:49 Pulse Rate 108 H 10/02/24 12:49 Respiratory Rate 16 10/02/24 12:49 Blood Pressure 102/59 L 10/02/24 12:49 Pulse Oximetry (%) 95 10/02/24 12:49 Oxygen Delivery Method Room Air 10/02/24 12:49 Pulse ox is 95% on room air which is adequate. Discharge Plan Plan Patient Disposition: HOME (Self Care) Patient condition on transfer: Stable Prescriptions/Referrals Prescriptions/Med Rec: No Action primidone 50 mg tablet 25 mg PO DAILY tamsulosin [Flomax] 0.4 MG capsule,extended release 24hr 0.8 mg PO DAILY Qty: 0 Levothyroxine * (SYNTHROID *) 50 MCG tablet 50 mcg PO DAILY Qty: 0 Metformin Hcl 1,000 MG tablet 1,000 mg PO BID Qty: 0 clopidogrel [Plavix] 75 MG tablet 75 mg PO QDAY Qty: 0 atorvastatin [Lipitor] 10 MG tablet 10 mg PO HS Qty: 0 multivitamin Tablet 1 tab PO QAM Rx Instructions: Bottle also said Multimineral. acetaminophen [Acetaminophen Extra Strength] 500 mg Tablet 500 mg PO Q6H PRN (Reason: Pain) carbidopa-levodopa 50-200 mg tablet extended release 1 tab PO BID Patient Comments: TAKE 1 TABLET BY MOUTH TWICE DAILY loratadine 10 mg Tablet 10 mg PO QAM insulin aspart U-100 [Novolog FlexPen U-100 Insulin] 100 unit/mL (3 mL) Insulin Pen 1 sliding scale dose SUBCUT USEASDIRECTD Rx Instructions: if bs >200 no insulin 201-250 3units 251-300 6 units 301-350 9 units 351-400 12 units 401 or > 15 units ferrous sulfate 325 mg (65 mg iron) tablet,delayed release (DR/EC) 325 mg PO TID Patient Comments: TAKE 1 TABLET BY MOUTH THREE TIMES DAILY AFTER A MEAL vitamin B complex Tablet 1 tab PO QDAY cholecalciferol (vitamin D3) [Vitamin D3] 125 mcg (5,000 unit) Tablet 125 mcg PO QDAY (DME) blood-glucose meter Kit See Rx Instructions .Route Qty: 1 0RF Rx Instructions: As directed (DME) FreeStyle Marciano 3 Plus Sensor Device See Rx Instructions .Route Qty: 1 0RF Rx Instructions: As directed donepezil 10 mg Tablet 10 mg PO QDAY albuterol sulfate 4 mg Tablet 4 mg PO BID baclofen 10 mg Tablet 10 mg PO HS PRN (Reason: Cramps) gabapentin 300 mg Capsule 300 mg PO QPM omeprazole 20 mg Capsule,Delayed Release(Dr/Ec) 20 mg PO EVERYOTHERDAY Rx Instructions: before a meal aspirin 81 mg Tablet 81 mg PO QPM dutasteride 0.5 mg Capsule 0.5 mg PO QDAY Referrals: Lamberto Grey MD [Primary Care Provider] - In 1 week Problem List Clinical Impression: Dementia Patient/Caregiver Discharge Instructions Discharge Activity: activity as tolerated Education Materials: Delirium & Dementia Difference Print Language: Upper Sorbian Stand Alone Forms: Dionne Award Info., Patient Portal Info Letter MDM Clinical Information Provided by: patient Other: and caregiver Medical Records reviewed [facility] [place] (I reviewed admission from 05/13/24 through 05/15/2024 ) and EMS Meds/Rx considered, not ordered None Labs/Rad/Tests considered, not ordered None Chronic Illness/Social Conditions which may negatively complicate care or outcome(s)-explain: None or not applicable Labs Labs: Interpreted by me Imaging Imaging interpretation: none or see narrative above Medication Administration(s) Medication Administration History Discontinued Medications Sodium Chloride (Ns) 1,000 mls @ 999 mls/hr IV .Q1H1M ONE Stop: 10/02/24 15:57 Last Infusion: 10/02/24 17:04 Dose: Infused Documented By: Admin: 10/02/24 16:05 Dose: 999 mls/hr Documented By: GRACE See above
[2024-10-02 13:37] LABS: Basophils # (Auto) 0.1 Thou/mm3 (0.0-0.2); Basophils % (Auto) 1 % (0-2.5); Eosinophils # (Auto) 0.1 Thou/mm3 (0.0-0.5); Eosinophils % (Auto) 1 % (0-10); Hematocrit 35.1 % (41.0-53.0); Hemoglobin 11.5 g/dL (13.5-16.0); Immature Granulocytes % (Auto) 2 % (0-0); Immature Granulocytes Auto 0.27 Thou/mm3 (0.00-0.00); Lymphocytes # (Auto) 0.7 Thou/mm3 (1.0-4.8); Lymphocytes % (Auto) 5 % (10-50); Mean Corpuscular HGB Conc 32.8 g/dl (31.0-37.0); Mean Corpuscular Hemoglobin 28.4 pg (25.0-35.0); Mean Corpuscular Volume 87 fL (80-100); Monocytes # (Auto) 1.6 Thou/mm3 (0.0-0.8); Monocytes % (Auto) 11 % (0-12); Neutrophils # (Auto) 11.6 Thou/mm3 (1.8-7.7); Neutrophils % (Auto) 81 % (37-80); Nucleated Red Blood Cell % 0 /100 WBC (0); Platelet Count 325 Thou/mm3 (140-440); RDW Standard Deviation 50.4 fL (35.1-43.9); Red Blood Count 4.05 Miln/mm3 (4.50-5.90); White Blood Count 14.2 Thou/mm3 (3.8-10.6)
[2024-10-02 13:54] LABS: Ammonia 21 uMol/L (11-32); B-Type Natriuretic Peptide 56 pg/mL (0-100)
[2024-10-02 13:57] LABS: Alanine Aminotransferase 118 U/L (10-49); Albumin, Serum 3.8 gm/dL (3.4-4.8); Albumin/Globulin Ratio 1.4 (1.2-2.2); Alkaline Phosphatase 544 U/L (46-116); Anion Gap 17 (7-16); Aspartate Amino Transferase 266 U/L (0-34); BUN/Creatinine Ratio 22 Ratio (12-20); Bilirubin,Total 0.8 mg/dL (0.3-1.2); Blood Urea Nitrogen 31 mg/dL (9-23); Calcium 8.9 mg/dL (8.3-10.6); Calcium (Corrected) 9.1 mg/dL (8.5-10.1); Carbon Dioxide 20.2 mMol/L (20.0-31.0); Chloride 100 mMol/L (98-107); Creatinine (Component) 1.4 mg/dL (0.6-1.3); Estimated Creatinine Clearance 31.1 mL/min (>60); Globulin 2.7 gm/dL (2.3-3.5); Glucose 276 mg/dL (74-106); Osmolality,Calculated 290 (275-295); Potassium 4.2 mMol/L (3.4-5.1); Sodium 137 mMol/L (136-145); Total Protein 6.5 gm/dL (5.7-8.2); Troponin I < 0.020 ng/mL (0.0-0.045); eGFR 48 See Note
[2024-10-02 14:00] LABS: Collection Type, Urine Clean Catch
[2024-10-02 14:11] LABS: Bilirubin,Urine Negative (Negative); Blood,Urine Negative (Negative); Clarity,Urine Clear (Clear/Hazy); Color,Urine Yellow (Lt Yel-Yel); Culture Indicated,Urine Not Indicated; Glucose, Urine Trace (Negative); Ketones,Urine Negative (Negative); Leukocyte Esterase,Urine Negative (Negative); Nitrite,Urine Negative (Negative); Protein,Urine Negative (Neg - Trace); RBC,Urine < 1 /hpf (0-3); Specific Gravity,Urine 1.015 (1.001-1.035); Squamous Epithelial Cell,Urine < 1 /hpf (0-5); Urobilinogen,Urine Negative mg/dL (0.0-1.0); WBC,Urine 1 /hpf (0-5)
[2024-10-02 14:17] LABS: INR 1.3 (0.9-1.3); Prothrombin Time 14.4 Seconds (9.0-12.2)
[2024-10-02] MEDS: SODIUM CHLORIDE 0.9% 1000 ML 1,000 ML 999 ML IV ×2 (16:05→20:17)
[2024-10-02 16:26] LABS: Base Excess, Venous -3 (-3-3); O2 Saturation, Venous 81 % (96-97); PCO2, Venous 33 mmHg (36-56); PO2, Venous 44 mmHg (15-58); pH, Venous 7.41 (7.33-7.66)
--- NOTE | 2024-10-02 18:59 | XR_ITS ---
Examination: Abdomen sonogram, Limited Date and time of exam: October 02, 2024 2104 hours INDICATIONS: Elevated liver function tests on laboratory examination today Technique: Real-time baker scale transabdominal sonographic images of the upper abdomen obtained. Findings: Abnormal thickening of the gallbladder wall 0.9 cm no stones Common bile duct 0.4 cm Pancreatic head 2.9 cm Liver 17.6 cm fatty infiltration Suspicious for clot in the inferior vena cava near the atrial junction 4.7 x 2.4 x 3.8 cm Normal hepatopedal portal venous flow IMPRESSION: Abnormally thickened gallbladder wall consistent with cholecystitis, consider HIDA scan or MRCP follow-up Suspicious for blood clot in the IVC near the atrial junction, clinical correlation advised
--- NOTE | 2024-10-02 19:32 | PD.EDEXREM ---
ED Extremity Problem RME/HPI General Chief complaint: Altered Mental Status Stated complaint: AMS Time Seen by Provider: 10/02/24 12:53 Arrival date/time: 10/02/24 12:44 Limitations: no limitations RME / HPI RME / HPI Narrative: 89 year old male with history of Alzheimer's disease, dementia, CAD s/p PCI, hypothyroidism, AAA presents to the ED BIBA from home for evaluation of altered mental status today. Per caregiver at bedside, patient appears to be more confused than his baseline. While in the ED patient states he has no complaints and does not know why he was brought here. Patient answering all questions properly. DR. ARVIZU MAIN ED EVALUATION: 89 y/o male with Hx of chronic UTI's, Cerebrovascular Accident (Left sided weakness), Dementia, Parkinson's Disease, Atherosclerotic Heart Disease, Hypercholesterolemia, Hypertension, Chronic Obstructive Pulmonary Disease (COPD), Pneumonia, Gastroesophageal Reflux Disease, Benign Prostatic Hyperplasia, Arthritis, Diabetes Mellitus Type 2, Hypothyroidism, Anxiety, Cancer (probable lung cancer, unable to do biopsy) And SHx of Coronary Stent presents to ED BIB daughter c/o BLE pain and fluid retention, as well as BL lower back pain x 1-2 weeks. Daughter reports swelling improved following medication prescribed by PCP, but returned once medication was stopped. Patient's ill appearance led daughter to check blood sugar measuring 58 mg/dL at 9 AM this morning and 200 mg/dL around 11 AM after drinking orange juice. Patient denies abdominal pain, vomiting, fever, chills or any other associated symptoms or aggravating factors. No modifying factors, no radiation, no migration. Related Data Home Medications ?Medication ?Instructions ?Recorded ?Confirmed Levothyroxine * (SYNTHROID *) 50 mcg PO DAILY ##0 08/18/12 10/02/24 Metformin Hcl 1,000 mg PO BID ##0 08/18/12 10/02/24 tamsulosin 0.4 mg capsule (Flomax) 0.8 mg PO DAILY ##0 08/18/12 10/02/24 clopidogrel 75 mg tablet (Plavix) 75 mg PO QDAY #0 tabs 11/02/13 10/02/24 atorvastatin 10 mg tablet (Lipitor) 10 mg PO HS #0 tabs 05/18/16 05/13/24 primidone 50 mg tablet 25 mg PO DAILY 11/26/17 01/22/23 carbidopa ER 50 mg-levodopa 200 mg 1 tab PO BID 08/02/21 10/02/24 tablet,extended release loratadine 10 mg tablet 10 mg PO QAM 08/02/21 10/02/24 acetaminophen 500 mg tablet 325 mg PO Q6H PRN Pain 12/05/21 10/02/24 (Acetaminophen Extra Strength) multivitamin 1 tab PO QAM 12/05/21 10/02/24 albuterol sulfate 4 mg tablet 4 mg PO BID 10/15/23 10/02/24 aspirin 81 mg tablet 81 mg PO QPM 10/15/23 10/02/24 baclofen 10 mg tablet 10 mg PO HS PRN Cramps 10/15/23 10/02/24 donepezil 10 mg tablet 10 mg PO QDAY 10/15/23 10/02/24 dutasteride 0.5 mg capsule 0.5 mg PO QDAY 10/15/23 10/02/24 gabapentin 300 mg capsule 300 mg PO QPM 10/15/23 10/02/24 omeprazole 20 mg capsule,delayed 20 mg PO EVERYOTHERDAY 10/15/23 10/02/24 release cholecalciferol (vitamin D3) 125 125 mcg PO QDAY 05/13/24 10/02/24 mcg (5,000 unit) tablet (Vitamin D3) ferrous sulfate 325 mg (65 mg 325 mg PO TID 05/13/24 10/02/24 iron) tablet,delayed release insulin aspart U-100 100 unit/mL 1 sliding scale dose subcut 05/13/24 10/02/24 (3 mL) subcutaneous pen (Novolog USEASDIRECTD FlexPen U-100 Insulin aspart) vitamin B complex 1 tab PO QDAY 05/13/24 05/13/24 fluticasone furoate 200 inhalation 10/02/24 mcg/actuation blister powder for inhalation (Arnuity Ellipta) insulin glargine U-300 conc 300 30 unit subcut Q24H 10/02/24 10/02/24 unit/mL (1.5 mL) subcutaneous pen (Toujeo SoloStar U-300 Insulin) memantine 5 mg tablet mg 10/02/24 Previous Rx's ?Medication ?Instructions ?Recorded blood-glucose meter #1 ea 05/14/24 blood-glucose sensor (FreeStyle #1 ea 05/14/24 Marciano 3 Plus Sensor device) Allergies Allergy/AdvReac Type Severity Reaction Status Date / Time No Known Allergies Allergy Verified 11/09/23 07:56 Review of Systems Review of Systems Systems Reviewed: All systems reviewed, normal except as documented Narrative Review of Systems: ROS: Gen: No fever, no chills EYES: No discharge, no visual changes, no pain HEENT: No ear pain, no congestion, no sore throat PULM: No shortness of breath, no cough, no congestion CV: No chest pain, no dyspnea on exertion, no palpitations GI: No nausea, no vomiting, no diarrhea, no pain, no constipation : No frequency, no urgency, no dysuria Musc/skel: Positive BL lower extremity pain and fluid retention, Positive BL lower back pain Skin: No rash. Psyc: No hallucinations, no depression Heme/Lymph: No easy bleeding or bruising tendencies Neuro: No weakness, no headache Past Medical History Past Medical History NEUROLOGIC: Positive Cerebrovascular Accident (Left sided weakness), Dementia and Parkinson's Disease CARDIAC: Positive Atherosclerotic Heart Disease, Hypercholesterolemia and Hypertension RESPIRATORY: Positive Chronic Obstructive Pulmonary Disease (COPD) and Pneumonia GASTROINTESTINAL: Positive Gastrointestinal Disorders and Gastroesophageal Reflux Disease GENITOURINARY: Positive Benign Prostatic Hyperplasia MUSCULOSKELETAL: Positive Arthritis ENDOCRINE: Positive Diabetes Mellitus Type 2 and Hypothyroidism PSYCHO/SOCIAL: Positive Anxiety OTHER HISTORY: Positive Falls and Cancer (probable lung cancer, unable to do biopsy) Surgical History SURGICAL: Positive Coronary Stent ED Exam Narrative Physical exam: GENERAL APPEARANCE: alert and oriented x 4, well-developed, well-nourished, no acute distress VITALS: All vitals were reviewed and the pulse ox is % on room air, which is normal according to my interpretation. HEENT: Normocephalic, atraumatic; pupils equal, round, reactive to light; EOMI; mucous membranes pink, moist; oropharynx clear NECK: Supple LUNGS: CTABL; no wheezes, no rales, no rhonchi HEART: Regular rate, regular rhythm; normal S1, S2; no murmurs ABDOMEN: Moderately distended; normal BS; soft, epigastric tenderness, mild guarding, no rebound; no masses, no organomegaly, no hernia BACK: no CVA tenderness EXTREMITIES: atraumatic; no edema NEUROLOGIC: awake; alert and oriented x4; cranial nerves II-XII grossly intact; no focal sensory or motor deficits PSYCHIATRIC: appropriate mood and affect SKIN: warm, dry, normal color; no rashes General Limitations: Present no limitations General appearance: Present alert, in no apparent distress and other (Patient is hard of hearing ) Course Course Course Narrative: 1857: Abdomen/Pelvis CT and labs ordered. 1858: Abdominal US ordered. 2118: Chest X-ray ordered. 2247: Repeat abdominal US ordered. 0300: Heparin ordered. 0415: Started on Heparin. Quality Measures none Orders Category Date Time Status Blood gas, venous NOW Care 10/02/24 12:[address] Screening NOW Care 10/03/24 05:41 Active Continuous Pulse Oximetry ONCE Care 10/02/24 12:56 Completed Consult to General Surgery Stat Cons 10/03/24 05:41 Ordered Discharge Routine Discharge 10/02/24 17:[address] abdomen pelvis wo con Stat Exams 10/02/24 20:[address] angio chest abdomen pelvis Stat Exams 10/03/24 05:41 Ordered US abdomen limited Stat Exams 10/02/24 18:59 Completed US abdomen limited Stat Exams 10/02/24 22:48 Taken XR chest 1V portable Stat Exams 10/02/24 21:29 Completed Ammonia Stat Lab 10/02/24 13:30 Completed B-Type Natriuretic Peptide Stat Lab 10/02/24 13:30 Completed Blood Culture (Lab) Stat Lab 10/02/24 19:27 Received CBC Stat Lab 10/02/24 13:30 Completed Comprehensive Metabolic Panel Stat Lab 10/02/24 13:30 Completed D-Dimer Stat Lab 10/02/24 21:38 Completed Lactate (Lactic Acid) Stat Lab 10/02/24 19:27 Completed Lactic Acid, 3 HR Stat Lab 10/02/24 23:15 Completed Lipase Stat Lab 10/02/24 23:15 Completed PT [Prothrombin Time with INR] Stat Lab 10/03/24 03:16 Completed PTT [Partial Thromboplastin Time] Stat Lab 10/03/24 10:00 Ordered Partial Thromboplastin Time Stat Lab 10/03/24 03:16 Completed Procalcitonin Stat Lab 10/02/24 19:27 Completed Prothrombin Time with INR Stat Lab 10/02/24 13:30 Completed Troponin I Stat Lab 10/02/24 13:30 Completed Troponin I Stat Lab 10/02/24 21:38 Completed Urinalysis, C/S if Indicated Stat Lab 10/02/24 13:46 Completed VBG [Venous Blood Gas] Stat Lab 10/02/24 16:20 Completed Heparin/D5w 25K 250 ML Ivpb [Heparin in D5w Ivpb] Med 10/03/24 03:00 Active 25,000 unit in 250 ml IV 18 units/kg/hr Piper/Tazo 3.375 gm Premix [Zosyn] Med 10/02/24 20:02 Discontinued 3.375 gm in 50 ml IV X1 Sodium Chloride 0.9% 1000 ml [Ns] 1,000 ml Med 10/02/24 14:57 Discontinued IV 999 mls/hr Sodium Chloride 0.9% 1000 ml [Ns] 1,000 ml Med 10/02/24 20:03 Discontinued IV 999 mls/hr Vital Signs Vital signs: Vital Signs Temperature 97.9 F 10/02/24 12:49 Pulse Rate 108 H 10/02/24 12:49 Respiratory Rate 16 10/02/24 12:49 Blood Pressure 102/59 L 10/02/24 12:49 Pulse Oximetry (%) 95 10/02/24 12:49 Oxygen Delivery Method Room Air 10/02/24 12:49 Extremity Problem MDM Narrative MDM Narrative:: Scribe Attestation: ICorry, am scribing for and in the presence of Dr. Arvizu. Provider Notation: Although this document has been carefully reviewed, there may still be some phonetic and other typographical errors. These errors are purely grammatical due to imperfections in the software program and should not be construed in any way to compromise the substance of the patient's medical care during this visit. Patient data External records reviewed:: [facility] previous records (Prior ED records from today (10/02/24) reviewed. Patient was discharged with Dementia.) Clinical information provided by:: family (Daughter) Social determinants that could affect healthcare access:: none Patient has the following chronic illnesses:: Cerebrovascular Accident (Left sided weakness), Dementia, Parkinson's Disease, Atherosclerotic Heart Disease, Hypercholesterolemia, Hypertension, Chronic Obstructive Pulmonary Disease (COPD), Pneumonia, Gastroesophageal Reflux Disease, Benign Prostatic Hyperplasia, Arthritis, Diabetes Mellitus Type 2, Hypothyroidism, Anxiety, Cancer (probable lung cancer, unable to do biopsy) How is presenting disease/condition affected by chronic disease/condition?: exacerbated by Evaluation data The following diagnostics were reviewed and interpreted by me:: lab results and radiology exam(s) Lab and/or radiology exams considered but not ordered:: None. Interpretation Summary: RADIOLOGY Chest X-Ray: Chest X-Ray is ordered for determining etiology of I have personally reviewed the radiology data and agree with the radiologist's interpretation below: Patient: ROCHELLE BABCOCK Med. Record#: [id number] Birthdate: 1935 Age/Sex: 89 / M Location: [facility] Attending Dr: Ordering Physician: Alanna Arvizu MD Date of Service: 10/02/24 Procedure(s): XR chest 1V portable Accession Number(s): [id number] cc: Jeramie Jessica MD; Alanna Arvizu MD; Lamberto Grey MD~ Examination: AP chest single view TECHNIQUE: AP portable upright chest single view Exam date and time: October 02, 2024 2139 hours INDICATIONS: Cough fever today FINDINGS: No significant cardiac enlargement Mild opacity at the left upper lobe and mild opacity right base The osseous structures are intact IMPRESSION: Early pneumonia left upper lobe and right base Dictated By: Jeramie Jessica MD Signed By: <Electronically signed by Jeramie Jessica MD in OV> 10/02/24 2216 Abdomen/Pelvis CT Patient: ROCHELLE BABCOCK Med. Record#: [id number] Birthdate: 1935 Age/Sex: 89 / M Location: [facility] Attending Dr: Ordering Physician: Alanna Arvizu MD Date of Service: 10/02/24 Procedure(s): CT abdomen pelvis wo [facility] Accession Number(s): [id number] cc: Jeramie Jessica MD; Alanna Arvizu MD; Lamberto Grey MD~ Examination: CT abdomen and pelvis without contrast. Coronal 3-D reconstructions. Sagittal 2-D reconstructions. Date and time of exam:October 02, 2022, 2049 hours Comparison December 04, 2021 INDICATIONS: Severe epigastric pain today CTDI: vol (mGy): 8.30 DLP: (mGycm): 489 Technique: Axial images of the abdomen have been obtained, 3 mm slice thickness Intravenous contrast material has not been administered. Low dose protocols were performed. One or more of the following dose reduction techniques were used; automated exposure control, adjustment of the mA and/or KV according to patient size, use of iterative reconstruction technique. Findings: Pneumonia right base with small right pleural effusion Cirrhosis, no focal liver lesions Gallbladder wall is edematous and thickened Splenomegaly. 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 Mild ascites Tiny bilateral nonobstructing renal calculi Infrarenal abdominal aortic aneurysm 5.5 x 5.0 cm Normal appendix Dictated By: Jeramie Jessica MD Signed By: <Electronically signed by Jeramie Jessica MD in OV> 10/02/242114 Abdomen Ultrasound Patient: ROCHELLE BABCOCK Med. Record#: [id number] Birthdate: 1935 Age/Sex: 89 / M Location: [facility] Attending Dr: Ordering Physician: Alanna Arvizu MD Date of Service: 10/02/24 Procedure(s): US abdomen limited Accession Number(s): [id number] cc: Jeramie Jessica MD; Alanna Arvizu MD; Lamberto Grey MD~ Examination: Abdomen sonogram, Limited Date and time of exam: October 02, 20242103 hours INDICATIONS: Elevated liver function tests on laboratory examination today Technique: Real-time baker scale transabdominal sonographic images of the upper abdomen obtained. Findings: Abnormal thickening of the gallbladder wall 0.9 cm no stones Common bile duct 0.4 cm Pancreatic head 2.9 cm Liver 17.6 cm fatty infiltration Suspicious for clot in the inferior vena cava near the atrial junction 4.7 x 2.4 x 3.8 cm Normal hepatopedal portal venous flow IMPRESSION: Abnormally thickened gallbladder wall consistent with cholecystitis, consider HIDA scan or MRCP follow-up Suspicious for blood clot in the IVC near the atrial junction, clinical correlation advised Dictated By: Jeramie Jessica MD Signed By: <Electronically signed by Jeramie Jessica MD in OV> 10/02/242130 Repeat Abdomen Ultrasound: Patient: ROCHELLE BABCOCK. Record#: [id number] Birthdate: 1935 Age/Sex: 89 / M Location: [facility] Attending Dr: Ordering Physician: Alanna Arvizu MD Date of Service: 10/02/24 Procedure(s): US abdomen limited Accession Number(s): [id number] cc: Jeramie Jessica MD; Alanna Arvizu MD; Lamberto Grey MD~ Examination: Abdomen sonogram, Limited Date and time of exam: October 02, 2024 210 hours INDICATIONS: Elevated liver function tests on laboratory examination today Technique: Real-time baker scale transabdominal sonographic images of the upper abdomen obtained. Findings: Abnormal thickening of the gallbladder wall 0.9 cm no stones Common bile duct 0.4 cm Pancreatic head 2.9 cm Liver 17.6 cm fatty infiltration Suspicious for clot in the inferior vena cava near the atrial junction 4.7 x 2.4 x 3.8 cm Normal hepatopedal portal venous flow IMPRESSION: Abnormally thickened gallbladder wall consistent with cholecystitis, consider HIDA scan or MRCP follow-up Suspicious for blood clot in the IVC near the atrial junction, clinical correlation advised Dictated By: Jeramie Jessica MD Signed By: <Electronically signed by Jeramie Jessica MD in OV> 10/02/24 2131 Medications / Prescriptions Medications or Prescriptions considered but not ordered:: None Medication administrations:: Medication Administration History Heparin Sodium/Dextrose (Heparin In D5w Ivpb) 25,000 unit in 250 mls @ 14.166 mls/hr IV .[id number] [facility] [place]; Protocol Stop: 10/17/24 02:59 Last Admin: 10/03/24 04:19 Dose: 18 units/kg/hr, 14.166 mls/hr Documented By: OSCAR Co-signed By: AC Discontinued Medications Sodium Chloride (Ns) 1,000 mls @ 999 mls/hr IV .Q1H1M ONE Stop: 10/02/24 15:57 Last Infusion: 10/02/24 17:04 Dose: Infused Documented By: Admin: 10/02/24 16:05 Dose: 999 mls/hr Documented By: VG Piperacillin/Tazobactam/Dextrose (Zosyn) 3.375 gm in 50 mls @ 100 mls/hr IV X1 ONE Stop: 10/02/24 20:31 Last Infusion: 10/02/24 20:49 Dose: Infused Documented By: Admin: 10/02/24 20:16 Dose: 100 mls/hr Documented By: GB Sodium Chloride (Ns) 1,000 mls @ 999 mls/hr IV .Q1H1M ONE Stop: 10/02/24 21:03 Last Infusion: 10/02/24 21:30 Dose: Infused Documented By: Admin: 10/02/24 20:17 Dose: 999 mls/hr Documented By: GB See above if any Consultations Consultation(s) initiated? (list below): Yes Consultation #1 (Physician, Specialty, Details): Dr. Pineda made aware of the patient?s HPI, PMHx, lab and/or radiology results. Treatment plan was discussed. Will admit for further evaluation and management. Accepts patient for admission. Time: 22:20 Consultation #2 (Physician, Specialty, Details): Spoke with industry segment specialist, Dr. Uribe. Dr Uribe made aware of the patient?s HPI, PMHx, lab and/or radiology results. Treatment plan was discussed, patient will not need to be transferred at this time. Will consult an admission to the hospitalist. Time: 05:33 Consultation #3 (Physician, Specialty, Details): Dr. Pineda made aware of the patient?s HPI, PMHx, lab and/or radiology results. Treatment plan was discussed. Will admit for further evaluation and management. Accepts patient for admission. Time: 05:39 Diagnosis Most likely diagnosis given after review of the tests above:: Pneumonia, Cholecystitis, Sepsis. Admission Indicated Admission indicated?: indicated Explain why admission is indicated or not indicated:: Pneumonia, Cholecystitis, Sepsis Admission Request Was there a request for admission?: Yes Admission Attestation Admission request attestation: Discussed case with [] from Hospitalist service regarding admission. Discussed patients ED course, exam findings, labs, and radiology results. The Hospitalist [agrees,declines] to accept the patient for admission. Disposition Plan Disposition Plan: Admit Discharge Plan Plan Patient Disposition: Admit Acute Care w/in Hospital Patient condition on transfer: Stable Prescriptions/Referrals Prescriptions/Med Rec: No Action primidone 50 mg tablet 25 mg PO DAILY tamsulosin [Flomax] 0.4 MG capsule,extended release 24hr 0.8 mg PO DAILY Qty: 0 Levothyroxine * (SYNTHROID *) 50 MCG tablet 50 mcg PO DAILY Qty: 0 Metformin Hcl 1,000 MG tablet 1,000 mg PO BID Qty: 0 clopidogrel [Plavix] 75 MG tablet 75 mg PO QDAY Qty: 0 atorvastatin [Lipitor] 10 MG tablet 10 mg PO HS Qty: 0 multivitamin Tablet 1 tab PO QAM Rx Instructions: Bottle also said Multimineral. acetaminophen [Acetaminophen Extra Strength] 500 mg Tablet 325 mg PO Q6H PRN (Reason: Pain) carbidopa-levodopa 50-200 mg tablet extended release 1 tab PO BID Patient Comments: TAKE 1 TABLET BY MOUTH TWICE DAILY loratadine 10 mg Tablet 10 mg PO QAM insulin aspart U-100 [Novolog FlexPen U-100 Insulin] 100 unit/mL (3 mL) Insulin Pen 1 sliding scale dose SUBCUT USEASDIRECTD Rx Instructions: if bs >200 no insulin 201-250 3units 251-300 6 units 301-350 9 units 351-400 12 units 401 or > 15 units ferrous sulfate 325 mg (65 mg iron) tablet,delayed release (DR/EC) 325 mg PO TID Patient Comments: TAKE 1 TABLET BY MOUTH THREE TIMES DAILY AFTER A MEAL vitamin B complex Tablet 1 tab PO QDAY cholecalciferol (vitamin D3) [Vitamin D3] 125 mcg (5,000 unit) Tablet 125 mcg PO QDAY (DME) blood-glucose meter Kit See Rx Instructions .Route Qty: 1 0RF Rx Instructions: As directed (DME) FreeStyle Marciano 3 Plus Sensor Device See Rx Instructions .Route Qty: 1 0RF Rx Instructions: As directed Arnuity Ellipta 200 mcg/actuation blister with device INHALATION Patient Comments: INHALE 1 PUFF BY MOUTH ONCE A DAY insulin glargine U-300 conc [Toujeo SoloStar U-300 Insulin] 300 unit/mL (1.5 mL) insulin pen 30 unit subcut Q24H memantine 5 mg tablet Patient Comments: TAKE 1 TABLET BY MOUTH DAILY donepezil 10 mg Tablet 10 mg PO QDAY albuterol sulfate 4 mg Tablet 4 mg PO BID baclofen 10 mg Tablet 10 mg PO HS PRN (Reason: Cramps) gabapentin 300 mg Capsule 300 mg PO QPM omeprazole 20 mg Capsule,Delayed Release(Dr/Ec) 20 mg PO EVERYOTHERDAY Rx Instructions: before a meal aspirin 81 mg Tablet 81 mg PO QPM dutasteride 0.5 mg Capsule 0.5 mg PO QDAY Referrals: Lamberto Grey MD [Primary Care Provider] - In 1 week Problem List Clinical Impression: Pneumonia, Sepsis, Cholecystitis Patient/Caregiver Discharge Instructions Discharge Activity: activity as tolerated Print Language: Armenian Stand Alone Forms: Dionne Award Info., Patient Portal Info Letter
[2024-10-02 19:35] LABS: Lactate (Lactic Acid) 4.8 mMol/L (0.4-2.0)
--- NOTE | 2024-10-02 19:43 | PC.NURSE ---
Pt's family at bedside spoke with MD Arvizu. DC rescinded. Orders placed.
[2024-10-02 19:59] LABS: Procalcitonin 12.71 ng/ml (0.0-0.49)
--- NOTE | 2024-10-02 20:06 | XR_ITS ---
Examination: CT abdomen and pelvis without contrast. Coronal 3-D reconstructions. Sagittal 2-D reconstructions. Date and time of exam:October 02, 2022, 2049 hours Comparison December 04, 2021 INDICATIONS: Severe epigastric pain today CTDI: vol (mGy): 8.30 DLP: (mGycm): 489 Technique: Axial images of the abdomen have been obtained, 3 mm slice thickness Intravenous contrast material has not been administered. Low dose protocols were performed. One or more of the following dose reduction techniques were used; automated exposure control, adjustment of the mA and/or KV according to patient size, use of iterative reconstruction technique. Findings: Pneumonia right base with small right pleural effusion Cirrhosis, no focal liver lesions Gallbladder wall is edematous and thickened Splenomegaly. 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 Mild ascites Tiny bilateral nonobstructing renal calculi Infrarenal abdominal aortic aneurysm 5.5 x 5.0 cm Normal appendix
[2024-10-02] MEDS: PIPER/TAZO 3.375 GM PREMIX 3.375 GM/50 ML BAG IV (20:16)
--- NOTE | 2024-10-02 20:49 | PC.NURSE ---
Pt in CT.
--- NOTE | 2024-10-02 21:29 | XR_ITS ---
Examination: AP chest single view TECHNIQUE: AP portable upright chest single view Exam date and time: October 02, 2024 2139 hours INDICATIONS: Cough fever today FINDINGS: No significant cardiac enlargement Mild opacity at the left upper lobe and mild opacity right base The osseous structures are intact IMPRESSION: Early pneumonia left upper lobe and right base
[2024-10-02 22:04] LABS: Troponin I < 0.020 ng/mL (0.0-0.045)
--- NOTE | 2024-10-02 22:05 | PC.NURSE ---
brief change, [place] care and linen change
[2024-10-02 22:30] LABS: Reflex Lactate? Y
--- NOTE | 2024-10-02 22:48 | XR_ITS ---
Examination: Abdomen sonogram, Limited Date and time of exam: October 03, 2024 0013 hours INDICATIONS: Onset abdominal pain today, elevated d-dimer Technique: Real-time baker scale transabdominal sonographic images of the upper abdomen obtained. Findings: Findings suspicious for clot in the inferior vena cava at the right atrial junction IMPRESSION: Findings consistent with partial thrombus in the inferior vena cava as above
--- NOTE | 2024-10-02 23:04 | PD.RESHP ---
Documentation for date of: 10/02/24 HPI History of Present Illness History of present illness: Obdulio Manuel is 89 yr M with PMH of CAD s/p PCI, insulin-dependent diabetes mellitus, hypothyroidism, parkinsonism, history of CVA, BPH, dementia, AAA, COPD, on hospice care at home who was BIBA due to LE swelling and abdominal pain since past few days. Patient is poor historian and daughter Veena was contacted. She was able to provide some history. She stated that patient is at his baseline but started complaining of this pain past few days. Has good oral intake, no concerns for decreased appetite. No nausea, vomiting, diarrhea, dysuria. In ED, heart rate 105, afebrile, BP 140/87. Leukocytosis 14, hemoglobin 11.5, BUN 31, creatinine 1.4 (baseline appears to be 1.0), glucose 276, lactic acid 4.8, transaminitis AST 266, ALT 118, alk phos 544 ammonia within normal limits. Troponins negative, Pro-Tulio elevated 12.7. UA negative Abdominal ultrasound suspicious for clot in IVC, cholecystitis. CT A/P showed pneumonia right base, cirrhosis, splenomegaly, infrarenal abdominal aortic aneurysm 5.5x5.0 (slightly larger from 2023), 1-2 mm renal calculi He was given total 2 L bolus NS, Zosyn x 1. General surgery Dr. Jackman was consulted for evaluation of cholecystitis possible cholecystectomy. Patient's daughter Veena was updated. She will speak with family in regards to next steps in management/family wishes. Will admit patient for sepsis secondary to CAP vs cholecystitis. Past medical history: Insulin-dependent diabetes mellitus, CAD, hypothyroidism, hypertension, parkinsonism, dementia, history of CVA, COPD, suspicion of lung malignancy Past surgical history history: CAD s/p PCI, surgery for carpal tunnel syndrome Social history: Ex-smoker, smoked from the age of [age], almost 50 pack years, occasional alcoholic, denies other illicit drug abuse. Allergies: NKDA Review of Systems Constitutional Constitutional: Reports system reviewed and no additional complaints, except as documented Exam Vital Signs Temp Pulse Resp BP Pulse Ox O2 Del Method 98.6 F 95 18 139/86 H 95 Room Air 10/02/24 19:59 10/02/24 22:45 10/02/24 22:45 10/02/24 22:45 10/02/24 22:45 10/02/24 22:45 Narrative Exam General: Elderly male, hard of hearing, no acute distress, cooperative HEENT: NCAT, No JVD noted. Mucosa moist. Pupils are equal and reactive to light bilaterally Cardiovascular: Normal S1 and S2. Regular rate and rhythm. Respiratory: Lungs are clear to auscultation bilaterally. No wheezing or crackles heard. Abdomen: Soft, right upper quadrant tender to palpation, no rebound tenderness ,not distended, normal bowel sounds. Skin: Warm to touch, dry, no rashes noted Musculoskeletal: No gross injuries. Able to move all 4 extremities. No pitting edema Neuro: Alert and oriented x2. No focal neuro deficits. Psych: Normal affect and mood Results: Labs 10/03/24 06:30 10/03/24 06:30 Labs: Short CBC 10/02/24 Range/Units 13:30 WBC 14.2 H (3.8-10.6) Thou/mm3 Hgb 11.5 L (13.5-16.0) g/dL Hct 35.1 L (41.0-53.0) % Plt Count 325 (140-440) Thou/mm3 BMP 10/02/24 13:30 Sodium 137 Potassium 4.2 Chloride 100 Carbon Dioxide 20.2 BUN 31 H Creatinine 1.4 H Glucose 276 H Calcium 8.9 Cardiac Enzymes 10/02/24 10/02/24 Range/Units 13:30 21:38 Troponin I < 0.020 < 0.020 (0.0-0.045) ng/mL Liver Function 10/02/24 Range/Units 13:30 Total Bilirubin 0.8 (0.3-1.2) mg/dL AST 266 H (0-34) U/L ALT 118 H (10-49) U/L Alkaline Phosphatase 544 H (46-116) U/L Albumin 3.8 (3.4-4.8) gm/dL Urine 10/02/24 Range/Units 13:46 Urine Color Yellow (Lt Yel-Yel) Urine Clarity Clear (Clear/Hazy) Urine pH 5.0 (5.0-7.0) Ur Specific [place] 1.015 (1.001-1.035) Urine Protein Negative (Neg - Trace) Urine Glucose (UA) Trace (Negative) ABG Interpretation ABG results: 10/02/24 16:20 VBG pH 7.41 VBG pCO2 33 L VBG pO2 44 VBG Base Excess -3 Quality Measures Quality Measures none Advance care planning discussed with:: child Medications Home Medications and Allergies Home Medications ?Medication ?Instructions ?Recorded ?Confirmed ?Type Levothyroxine * (SYNTHROID *) 50 mcg PO DAILY ##0 08/18/12 10/02/24 History Metformin Hcl 1,000 mg PO BID ##0 08/18/12 10/02/24 History tamsulosin 0.4 mg capsule (Flomax) 0.8 mg PO DAILY ##0 08/18/12 10/02/24 History carbidopa ER 50 mg-levodopa 200 mg 1 tab PO BID 08/02/21 10/02/24 History tablet,extended release loratadine 10 mg tablet 10 mg PO QAM 08/02/21 10/02/24 History acetaminophen 500 mg tablet 325 mg PO Q6H PRN Pain 12/05/21 10/02/24 History (Acetaminophen Extra Strength) multivitamin 1 tab PO QAM 12/05/21 10/02/24 History albuterol sulfate 4 mg tablet 4 mg PO BID 10/15/23 10/02/24 History aspirin 81 mg tablet 81 mg PO QPM 10/15/23 10/02/24 History baclofen 10 mg tablet 10 mg PO HS PRN Cramps 10/15/23 10/02/24 History donepezil 10 mg tablet 10 mg PO QDAY 10/15/23 10/02/24 History dutasteride 0.5 mg capsule 0.5 mg PO QDAY 10/15/23 10/02/24 History gabapentin 300 mg capsule 300 mg PO QPM 10/15/23 10/02/24 History omeprazole 20 mg capsule,delayed 20 mg PO EVERYOTHERDAY 10/15/23 10/02/24 History release ferrous sulfate 325 mg (65 mg 325 mg PO TID 05/13/24 10/02/24 History iron) tablet,delayed release insulin aspart U-100 100 unit/mL 1 sliding scale dose subcut 05/13/24 10/02/24 History (3 mL) subcutaneous pen (Novolog USEASDIRECTD FlexPen U-100 Insulin aspart) insulin glargine U-300 conc 300 25 unit subcut Q24H 10/02/24 10/03/24 History unit/mL (1.5 mL) subcutaneous pen (Toujeo SoloStar U-300 Insulin) memantine 5 mg tablet 5 mg PO HS 10/02/24 10/03/24 History fluticasone furoate 200 1 inh inhalation BID 10/03/24 10/03/24 History mcg-vilanterol 25 mcg/dose inhalation powder (Breo Ellipta) Allergies Allergy/AdvReac Type Severity Reaction Status Date / Time No Known Allergies Allergy Verified 11/09/23 07:56 Visit Medications Discontinued Medications Sodium Chloride (Ns) 1,000 mls @ 999 mls/hr IV .Q1H1M ONE Stop: 10/02/24 15:57 Last Infusion: 10/02/24 17:04 Dose: Infused Piperacillin/Tazobactam/Dextrose (Zosyn) 3.375 gm in 50 mls @ 100 mls/hr IV X1 ONE Stop: 10/02/24 20:31 Last Infusion: 10/02/24 20:49 Dose: Infused Sodium Chloride (Ns) 1,000 mls @ 999 mls/hr IV .Q1H1M ONE Stop: 10/02/24 21:03 Last Infusion: 10/02/24 21:30 Dose: Infused Assessment & Plan Plan Obdulio Manuel is 89 yr M with PMH of CAD s/p PCI, insulin-dependent diabetes mellitus, hypothyroidism, parkinsonism, history of CVA, BPH, dementia, AAA, COPD, on hospice care at home who was BIBA due to LE swelling and abdominal pain since past few days. Patient is poor historian and daughter Veena was contacted. Will admit patient for sepsis secondary to CAP vs cholecystitis. #Sepsis 2/2 #CAP vs #Cholecystitis Per daughter, patient has not been experiencing abdominal pain since past 2 days. Denied any fever, nausea, vomiting, diarrhea. On admission WBCs 14, tachycardic 105, lactic acid 4.8, creatinine 1.4, Pro-Tulio 12. Sepsis due to PNA vs cholecystitis with acute sepsis-related organ dysfunction as evidence by LAURITA. CT A/P showed pneumonia right base, cirrhosis, splenomegaly, infrarenal abdominal aortic aneurysm 5.5x5.0 (slightly larger from 2023), 1-2 mm renal calculi -Surgery Dr. Lizarraga consulted: she will evaluate patient in AM. Check with family before proceeding with any surgery -NPO - Zosyn 3.375 g TID - Blood cultures pending #IVC clot vs mass #Transaminitis Abdominal ultrasound suspicious for clot in IVC, cholecystitis. AST 266, ALT 118, alk phos 544. Elevated D-dimer 1360. ED repeated abdominal ultrasound with official read pending. - Cardiology Dr. Uribe was consulted, stated that is less likely a clot but possibly a mass. Said okay to admit. - Continue heparin drip ? Follow-up on CTA chest/abdomen/pelvis per cardiology recs -on NS maintenance 125 cc/h #LAURITA BUN 31, creatinine 1.4 (baseline appears to be 1.0). Most likely prerenal in setting of sepsis. -maintenance fluids -avoid nephrotoxic agents -daily CMP #Hx Insulin-dependent type 2 diabetes, poorly controlled On admission initial glucose 276. Last A1c 8.9 on 05/27. Patient takes 30 units glargine, 1000 mg twice daily metformin for diabetes at home. -Held home medications -Bedside blood glucose checks ACHS -Insulin lispro sliding scale -Carb consistent low diet -A1c pending #Hx Parkinsons #hx HLD #Hx CVA #Hx hypothyroidism #Hx BPH -resume home meds after rec Health maintenance: Dispo: med surg, cholecystitis, heparin drip FEN: NPO DVT prophylaxis: Heparin CODE STATUS: DNR The patient's management plan was discussed with my attending physician Dr. Pineda. Brenda Lind, PGY-1 Attending Provider Attestation/Addendum I attest that I was physically present for the evaluation, physical examination, lab and imaging review of the patient with the residents. I discussed the case with the residents and agree with the findings and plans of care as documented above. Kathy Pineda MD
[2024-10-02 23:32] LABS: Lactic Acid, 3 HR 2.8 mMol/L (0.4-2.0)
[2024-10-02 23:53] LABS: D-Dimer 1360 ng/mL (<600)
[2024-10-03] VITALS (10 sets, daily range): BP systolic 126–167; BP diastolic 76–98; PULSE 83–96; RESP 16–98; TEMP 36.2–37.3; O2SAT 93–99
[2024-10-03 00:07] LABS: Lipase 25 U/L (12-53)
--- NOTE | 2024-10-03 03:15 | PRELIM_ITS ---
Right upper quadrant abdominal ultrasound with doppler and wave doppler spectral analysis. October 03, 2024 0013 hours Clinical history: IVC. Technique: Grayscale and color flow images of the right upper quadrant are provided. Hepatic and portal veins were also imaged with color flow images. Comparison: No prior study is available for comparison. Findings: Limited study targeted for evaluation of the IVC and the hepatic veins. The hepatic veins are patent with normal wave Doppler spectral analysis. Large clot versus mass within the inferior vena cava, probably extending to the cardiac cavity. Impression: Clot versus mass within the inferior vena cava, probably extending to the cardiac cavity. Further evaluation is recommended. Report Electronically Signed By: Devin Suarez 10/03/2024 3:15:06 AM [EST]
--- NOTE | 2024-10-03 03:27 | PC.NURSE ---
[facility]oke [facility] to verify pt's height/weight. Pharmacist requesting new PT/PTT/INR. Spoke with MD Arvizu and orders received. Awaiting lab results at this time.
[2024-10-03 03:38] LABS: INR 1.4 (0.9-1.3); Partial Thromboplastin Time 24.3 Seconds (22.0-36.0); Prothrombin Time 14.5 Seconds (9.0-12.2)
[2024-10-03] MEDS: Heparin/D5w 25K 250 ML Ivpb 25,000 UNIT/250 ML BAG 14.166 UNIT IV (04:19)
--- NOTE | 2024-10-03 05:41 | XR_ITS ---
Examination: CTA chest, with intravenous contrast. CTA abdomen, with intravenous contrast. CTA pelvis, with intravenous contrast. 2-D sagittal and coronal reconstructions. 3-D reconstructions. Date and time of exam: October 03, 2024, 0747 hrs. Indications: Onset chest and abdominal pain beginning yesterday CTDI vol (mgy) 13.5 DLP (MGycm) 800 Technique: Multiple CTA images, 2.0 mm slice thickness, obtained chest, abdomen, pelvis, with the high-resolution 64 slice scanner. 100 cc Isovue-370 is administered intravenously. Sagittal and coronal 2-D reconstructions are obtained. 3-D reconstructions, angiographic images are obtained. 3-D postprocessing, including vascular maximum intensity projections. Low dose protocols were performed. One or more of the following dose reduction techniques were used; automated exposure control, adjustment of the mA and/or KV according to patient size, use of iterative reconstruction technique. Findings: No thoracic aortic aneurysm dilatation or dissection No pulmonary artery emboli. 26 mm pulmonary nodule left upper lobe with indistinct margins. Mild right base pneumonia. Mild right pleural fluid. Cirrhosis, liver nodular in contour with diffuse fatty infiltration Enhancing right lobe liver lesion 8 x 7.6 cm Prominent splenomegaly Mild ascites No definite gallstones. No pancreatic mass. No hydronephrosis. 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 Urinary bladder intact Prostate radiation seeds, transverse prostate dimension 2.9 cm Severe osteopenia with advanced disc narrowing L5-S1 Impression: 26 mm pulmonary nodule indistinct margins left upper lobe, differential would include lung carcinoma Mild right base pneumonia, mild right pleural fluid Cirrhosis Large vascular right lobe liver lesion 8 x 7.6 cm, differential would include primary hepatocellular carcinoma Mild ascites Prominent splenomegaly Infrarenal abdominal aortic aneurysm transverse dimension 4.7 x 4.8 cm, aortic flor appear intact No bowel obstruction Moderate prostatomegaly Severe osteopenia
[2024-10-03] MEDS: PIPER/TAZO 3.375 GM PREMIX 3.375 GM/50 ML BAG IV ×3 (06:30→21:02)
[2024-10-03] MEDS: SODIUM CHLORIDE 0.9% 1000 ML 1,000 ML 125 ML IV (06:31)
[2024-10-03 06:37] LABS: Basophils # (Auto) 0.1 Thou/mm3 (0.0-0.2); Basophils % (Auto) 1 % (0-2.5); Eosinophils # (Auto) 0.2 Thou/mm3 (0.0-0.5); Eosinophils % (Auto) 2 % (0-10); Hematocrit 34.2 % (41.0-53.0); Hemoglobin 11.4 g/dL (13.5-16.0); Immature Granulocytes % (Auto) 1 % (0-0); Immature Granulocytes Auto 0.17 Thou/mm3 (0.00-0.00); Lymphocytes # (Auto) 1.1 Thou/mm3 (1.0-4.8); Lymphocytes % (Auto) 9 % (10-50); Mean Corpuscular HGB Conc 33.3 g/dl (31.0-37.0); Mean Corpuscular Hemoglobin 28.2 pg (25.0-35.0); Mean Corpuscular Volume 85 fL (80-100); Monocytes # (Auto) 1.5 Thou/mm3 (0.0-0.8); Monocytes % (Auto) 13 % (0-12); Neutrophils % (Auto) 75 % (37-80); Nucleated Red Blood Cell % 0 /100 WBC (0); Platelet Count 292 Thou/mm3 (140-440); Red Blood Count 4.04 Miln/mm3 (4.50-5.90)
[2024-10-03 07:11] LABS: Alanine Aminotransferase 256 U/L (10-49); Albumin, Serum 3.6 gm/dL (3.4-4.8); Albumin/Globulin Ratio 1.4 (1.2-2.2); Alkaline Phosphatase 607 U/L (46-116); Anion Gap 12 (7-16); Aspartate Amino Transferase 301 U/L (0-34); BUN/Creatinine Ratio 22 Ratio (12-20); Bilirubin,Total 0.8 mg/dL (0.3-1.2); Blood Urea Nitrogen 22 mg/dL (9-23); Calcium 8.6 mg/dL (8.3-10.6); Calcium (Corrected) 8.9 mg/dL (8.5-10.1); Carbon Dioxide 24.5 mMol/L (20.0-31.0); Chloride 105 mMol/L (98-107); Estimated Creatinine Clearance 48.4 mL/min (>60); Globulin 2.6 gm/dL (2.3-3.5); Glucose 92 mg/dL (74-106); Osmolality,Calculated 284 (275-295); Potassium 3.7 mMol/L (3.4-5.1); Sodium 141 mMol/L (136-145); Total Protein 6.2 gm/dL (5.7-8.2); eGFR > 60 See Note
--- NOTE | 2024-10-03 07:24 | PC.NURSE ---
Assumed care of patient. Patient in room on [facility] in no signs of acute distress at this time. Patient connected to monitor. Daughter at bedside. Patient and daughter updated on Plan of care. Both deny needing anything at this time.
--- NOTE | 2024-10-03 08:01 | ESCONSULT_ITS ---
<Statement entered by Sanjay Uribe MD - 10/04/24 16:35> I personally examined the patient evaluated this patient is known to have history of CAD previous angioplasty stent placement about 13 years ago in 2011 has multiple medical problems was DNR hospice care came to the hospital with multiple symptoms right upper quadrant pain and of note there was evidence of obstruction in the IVC near the entrance to the right atrium possible thrombus versus tumor I evaluated the patient but appears to be mostly at 3 tumor now arising from the liver could be metastasis or primary or benign tumor that is pushing into the inner vena cava with not completely obstructing it. Patient does not have any DVT clinically and no clinical signs of pulmonary embolism though pulmonary embolism scan will be performed which did come out negative. As for the cholecystitis there is no evidence of acute cholecystitis could be a chronic issue patient may not be a good candidate for surgery medical management is recommended. No anticoagulation recommended which can be discontinued. Went over in great detail with the primary team and the family as well as discussed with the surgeon. HPI Data of Consult Requesting Physician: Kathy Pineda MD Admitting Provider: Kathy Pineda MD Attending Provider: Kathy Pineda MD Primary Care Provider: Lamberto Grey MD Consult Narrative History of present illness: 89-year-old male with past medical history of coronary artery disease status post PCI, history of CVA, DM-2, parkinsonian,Dementia, abdominal aortic aneurysm, COPD , suspicion of lung malignancy unable to do biopsy who is currently on hospice care was admitted on October 02 with chief complaint of abdominal pain and bilateral leg swelling. Initial vitals in the ED BP?102/59, P?108, RR?16, temperature?97.9 Saturating well on room. Labs WBC?12, hemoglobin?11.4, PT?14.5, INR?1.4, D-dimer?1360. Sodium?141, potassium?3.7, lactic acid? 2.8 . AST?301, ALT?256, alk phos?607, Pro-Tulio?12.7. CT A/P showed pneumonia right base, cirrhosis, splenomegaly, infrarenal abdominal aortic aneurysm 5.5x5.0 (slightly larger from 2023), 1-2 mm renal calculi . 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 PMH: As above PSH: CAD s/p PCI, surgery for carpal tunnel syndrome SH: Ex-smoker 50 pack years, occasional alcoholic, denies other illicit drug abuse. Allergies: NKDA Cardiogy consulted for possbible partial thrombus in IVC and AAA cc:: cc: Kathy Pineda MD Review of Systems Review of Systems Systems Reviewed: All systems reviewed, normal except as documented Narrative Review of Systems: GENERAL: elderly cacehic kade, HEENT: Normocephalic, atraumatic. Pupils are equal and reactive. Oral mucosa is moist. NECK: Supple, nontender, no JVD CHEST: Symmetrical, atraumatic and with equal expansion ,Nontender on palpation CARDIOVASCULAR: Heart regular rhythm & rate. S1/S2. no murmur or gallop rub or extra beats. LUNGS: Clear to auscultation bilaterally with symmetrical chest rise. No laboring tachypnea or wheezing. No intercostal subcostal retraction. No rales and no rhonchi. ABDOMEN: Soft, flat, nontender to palpation, no guarding or rebound tenderness. Active and normal bowel sounds. EXTREMITIES:Moves all 4 extremities,No B/L LE edema. SKIN: Warm and dry, no jaundice or rashes noted. NEURO: Patient is AO x 3, Cranial nerves II through XII grossly intact. There is no focal neurologic deficits noted. PSYCHIATRIC: Patient is in normal mood, cooperative, no SI or HI or hallucination Exam Vital Signs Temp Pulse Resp BP Pulse Ox O2 Del Method 99.9 F 96 20 133/81 H 95 Room Air 10/02/24 23:16 10/03/24 05:45 10/03/24 05:45 10/03/24 05:45 10/03/24 05:45 10/03/24 05:45 Results Labs 10/03/24 06:30 10/03/24 06:30 Labs: Short CBC 10/02/24 10/03/24 Range/Units 13:30 06:30 WBC 14.2 H 12.0 H (3.8-10.6) Thou/mm3 Hgb 11.5 L 11.4 L (13.5-16.0) g/dL Hct 35.1 L 34.2 L (41.0-53.0) % Plt Count 325 292 D (140-440) Thou/mm3 BMP 10/02/24 10/03/24 13:30 06:30 Sodium 137 141 Potassium 4.2 3.7 D Chloride 100 105 Carbon Dioxide 20.2 24.5 BUN 31 H 22 Creatinine 1.4 H 1.0 Glucose 276 H 92 D Calcium 8.9 8.6 Cardiac Enzymes 10/02/24 10/02/24 Range/Units 13:30 21:38 Troponin I < 0.020 < 0.020 (0.0-0.045) ng/mL Liver Function 10/02/24 10/03/24 Range/Units 13:30 06:30 Total Bilirubin 0.8 0.8 (0.3-1.2) mg/dL AST 266 H 301 H (0-34) U/L ALT 118 H 256 H (10-49) U/L Alkaline Phosphatase 544 H 607 H D (46-116) U/L Albumin 3.8 3.6 (3.4-4.8) gm/dL Urine 10/02/24 Range/Units 13:46 Urine Color Yellow (Lt Yel-Yel) Urine Clarity Clear (Clear/Hazy) Urine pH 5.0 (5.0-7.0) Ur Specific [place] 1.015 (1.001-1.035) Urine Protein Negative (Neg - Trace) Urine Glucose (UA) Trace (Negative) ABG Interpretation ABG results: 10/02/24 16:20 VBG pH 7.41 VBG pCO2 33 L VBG pO2 44 VBG Base Excess -3 Quality Measures Quality Measures none Advance care planning discussed with:: patient Medications Home Medications and Allergies Home Medications ?Medication ?Instructions ?Recorded ?Confirmed ?Type Levothyroxine * (SYNTHROID *) 50 mcg PO DAILY ##0 08/0210/02/24 History Metformin Hcl 1,000 mg PO BID ##0 08/18/12 10/02/24 History tamsulosin 0.4 mg capsule (Flomax) 0.8 mg PO DAILY ##0 08/18/12 10/02/24 History carbidopa ER 50 mg-levodopa 200 mg 1 tab PO BID 10/02/24 History tablet,extended release loratadine 10 mg tablet 10 mg PO QAM 08/02/21 History acetaminophen 500 mg tablet 325 mg PO Q6H PRN Pain 09/2310/02/24 History (Acetaminophen Extra Strength) multivitamin 1 tab PO QAM 12/05/21 History albuterol sulfate 4 mg tablet 4 mg PO BID 10/15/2306/28 History aspirin 81 mg tablet 81 mg PO QPM 10/15/23 History baclofen 10 mg tablet 10 mg PO HS PRN Cramps 10/1410/02/24 History donepezil 10 mg tablet 10 mg PO QDAY 10/15/2310/02 History dutasteride 0.5 mg capsule 0.5 mg PO QDAY 10/15/2306/28 History gabapentin 300 mg capsule 300 mg PO QPM 10/15/2310/02 History omeprazole 20 mg capsule,delayed 20 mg PO EVERYOTHERDA Y 10/15/23 10/02/24 History release ferrous sulfate 325 mg (65 mg 325 mg PO TID 05/13/24 0 10/02/24 History iron) tablet,delayed release insulin aspart U-100 100 unit/mL 1 sliding scale dose subcut 05/13/24 10/02/24 History (3 mL) subcutaneous pen (Novolog USEASDIRECTD FlexPen U-100 Insulin aspart) insulin glargine U-300 conc 300 25 unit subcut Q24H 10/03/24 History unit/mL (1.5 mL) subcutaneous pen (Toujeo SoloStar U-300 Insulin) memantine 5 mg tablet 5 mg PO HS 10/02/24 10/03/24 History fluticasone furoate 200 1 inh inhalation BID 5 10/03/24 History mcg-vilanterol 25 mcg/dose inhalation powder (Breo Ellipta) Allergies Allergy/AdvReac Type Severity Reaction Status Date / Time No Known Allergies Allergy Verified 11/09/23 07:56 Visit Medications Acetaminophen (Acetaminophen 325 Mg Tablet) 650 mg PO Q6H PRN PRN Reason: Fever >100.3 or pain Stop: 11/02/24 05:50 Dextrose (Dextrose 50%-Water Inj 50 Ml Syringe) 25 ml IV Q15MIN PRN PRN Reason: BG 50-70 responsive npo pt Stop: 11/02/24 05:55 Dextrose (Dextrose 50%-Water Inj 50 Ml Syringe) 50 ml IV Q15MIN PRN PRN Reason: BG <50 OR BG <70 & pt unresponsive Stop: 11/02/24 05:55 Glucagon (Glucagon Inj 1 Mg Vial) 1 mg IM Q15MIN PRN PRN Reason: BG <70, and no IV access Heparin Sodium/Dextrose (Heparin In D5w Ivpb) 25,000 unit in 250 mls @ 14.166 mls/hr IV .[id number] [facility]; Protocol Stop: 10/17/24 02:59 Last Titration: 10/03/24 07:11 Dose: 18 units/kg/hr, 14.166 mls/hr Piperacillin/Tazobactam/Dextrose (Zosyn) 3.375 gm in 50 mls @ 12.5 mls/hr IV Q8HR [facility] Stop: 10/10/24 06:14 Last Admin: 10/03/24 06:30 Dose: 12.5 mls/hr Sodium Chloride (Ns) 1,000 mls @ 125 mls/hr IV .Q8H ONE Stop: 10/03/24 14:11 Last Admin: 10/03/24 06:31 Dose: 125 mls/hr Insulin Human Lispro (Insulin Lispro (Admelog) 1 Unit/0.01 Ml Unit) 0 unit SC [facility]; Protocol Stop: 11/02/24 07:29 Ondansetron HCl (Ondansetron Inj 2 Mg/Ml Inj 2 Ml) 4 mg IV Q6H PRN; Protocol PRN Reason: NAUSEA OR VOMITING Stop: 11/02/24 05:50 Sennosides (Senna Tablet) 1 tab PO QDAY PRN; Protocol PRN Reason: constipation Stop: 11/02/24 05:50 Discontinued Medications Sodium Chloride (Ns) 1,000 mls @ 999 mls/hr IV .Q1H1M ONE Stop: 10/02/24 15:57 Last Infusion: 10/02/24 17:04 Dose: Infused Piperacillin/Tazobactam/Dextrose (Zosyn) 3.375 gm in 50 mls @ 100 mls/hr IV X1 ONE Stop: 10/02/24 20:31 Last Infusion: 10/02/24 20:49 Dose: Infused Sodium Chloride (Ns) 1,000 mls @ 999 mls/hr IV .Q1H1M ONE Stop: 10/02/24 21:03 Last Infusion: 10/02/24 21:30 Dose: Infused Piperacillin Sod/Tazobactam (Sod 3.375 gm/ Sodium Chloride) 50 mls @ 12.5 mls/hr IV Q8HR [facility] Stop: 10/10/24 05:59 Assessment & Plan Plan 89-year-old male with past medical history of coronary artery disease status post PCI, history of CVA, DM-2, parkinsonian,Dementia, abdominal aortic aneurysm, COPD , suspicion of lung malignancy unable to do biopsy who is currently on hospice care was admitted on October 02 with chief complaint of abdominal pain and bilateral leg swelling. Initial vitals in the ED BP?102/59, P?108, RR?16, temperature?97.9 Saturating well on room. Labs WBC?12, hemoglobin?11.4, PT?14.5, INR?1.4, D-dimer?1360. Sodium?141, potassium?3.7, lactic acid? 2.8 . AST?301, ALT?256, alk phos?607, Pro-Tulio?12.7. CT A/P showed pneumonia right base, cirrhosis, splenomegaly, infrarenal abdominal aortic aneurysm 5.5x5.0 (slightly larger from 2023), 1-2 mm renal calculi . 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 #Inferior vena Cava mass less likely clot - most likely mass , less likely clot , we will follow cta and US venous doppler to r/o clot -US Abdomen showed Findings consistent with partial thrombus in the inferior vena cava. -Elevated D-dimer 1360. -CT A/P showed pneumonia right base, cirrhosis, splenomegaly, infrarenal abdominal aortic aneurysm 5.5x5.0 (slightly larger from 2023), ? CTA chest/abdomen/pelvis- negative for PE - venous doppler b/l legs- no DVT - we can D/c heparin - he denied any procedure at this time, he was on home hospice , family meeting likely tomorrow . # History of CAD s/p PCI -Resume atorvastatin Rest of medical ploblem as per primary team . # History of parkinsonism # History of dementia # History of CVA # History of insulin-dependent diabetes mellitus # History of hypothyroidism # History of solitary pulmonary nodule # Chronic smoker, stopped 20 years ago with 50 pack years # History of COPD # History of BPH Discussed the patient with my attending Dr Rony Michael MD,PGY-3
--- NOTE | 2024-10-03 08:56 | PC.NURSE ---
Dr Uribe at bedside
--- NOTE | 2024-10-03 08:57 | XR_ITS ---
Examination: Venous duplex lower extremity sonogram, bilateral. Date and time of exam: October 03, 2024 0942 hours INDICATIONS: Right leg edema beginning one week ago Technique: Multiple sonographic images of the deep venous system have been obtained. B-mode/2-D grayscale imaging of vascular structures and Doppler spectral analysis (waveforms) and color performed Both legs are examined. Findings: Deep venous systems do not demonstrate abnormal echogenicity. All visualized deep veins exhibit compressibility. All visualized deep veins exhibit augmentation. Impression: Negative for deep vein thrombosis
--- NOTE | 2024-10-03 09:55 | PD.SURCONS ---
HPI Consult details History of present illness: 89M with DMII, CAD s/p PCI, CVA, COPD on hospice care who was brought in to ER by family due to weakness and abdominal pain. Per his daughter pt reported sudden abdominal pain when her brother was caring for him yesterday, but she states that it was not related to eating and that he has not had any nausea/vomiting or changes in his appetite. Workup has shown a potential IVC mass/thrombus, gallbladder wall thickening without stones and now CT with contrast shows a large liver lesion concerning for HCC PMH: DMII, CAD, HTN, COPD, CVA PSHx: CAD s/p PCI Meds: includes ASA Allergies: NKDA Social hx: Ambulates with walker and cane, family helps him perform ADLs and he is on hospice care at home Review of Systems Review of Systems ROS Unobtainable: All systems reviewed & no additional complaints except as documented Meds Home Medications and Allergies Home Medications ?Medication ?Instructions ?Recorded ?Confirmed ?Type Levothyroxine * (SYNTHROID *) 50 mcg PO DAILY ##0 08/18/12 10/02/24 History Metformin Hcl 1,000 mg PO BID ##0 08/18/12 10/02/24 History tamsulosin 0.4 mg capsule (Flomax) 0.8 mg PO DAILY ##0 08/18/12 10/02/24 History clopidogrel 75 mg tablet (Plavix) 75 mg PO QDAY #0 tabs 11/02/13 10/02/24 History atorvastatin 10 mg tablet (Lipitor) 10 mg PO HS #0 tabs 05/18/16 05/13/24 History primidone 50 mg tablet 25 mg PO DAILY 11/26/17 01/22/23 History carbidopa ER 50 mg-levodopa 200 mg 1 tab PO BID 08/02/21 10/02/24 History tablet,extended release loratadine 10 mg tablet 10 mg PO QAM 08/02/21 10/02/24 History acetaminophen 500 mg tablet 325 mg PO Q6H PRN Pain 12/05/21 10/02/24 History (Acetaminophen Extra Strength) multivitamin 1 tab PO QAM 12/05/21 10/02/24 History albuterol sulfate 4 mg tablet 4 mg PO BID 10/15/23 10/02/24 History aspirin 81 mg tablet 81 mg PO QPM 10/15/23 10/02/24 History baclofen 10 mg tablet 10 mg PO HS PRN Cramps 10/15/23 10/02/24 History donepezil 10 mg tablet 10 mg PO QDAY 10/15/23 10/02/24 History dutasteride 0.5 mg capsule 0.5 mg PO QDAY 10/15/23 10/02/24 History gabapentin 300 mg capsule 300 mg PO QPM 10/15/23 10/02/24 History omeprazole 20 mg capsule,delayed 20 mg PO EVERYOTHERDAY 10/15/23 10/02/24 History release cholecalciferol (vitamin D3) 125 125 mcg PO QDAY 05/13/24 10/02/24 History mcg (5,000 unit) tablet (Vitamin D3) ferrous sulfate 325 mg (65 mg 325 mg PO TID 05/13/24 10/02/24 History iron) tablet,delayed release insulin aspart U-100 100 unit/mL 1 sliding scale dose subcut 05/13/24 10/02/24 History (3 mL) subcutaneous pen (Novolog USEASDIRECTD FlexPen U-100 Insulin aspart) vitamin B complex 1 tab PO QDAY 05/13/24 05/13/24 History fluticasone furoate 200 inhalation 10/02/24 History mcg/actuation blister powder for inhalation (Arnuity Ellipta) insulin glargine U-300 conc 300 30 unit subcut Q24H 10/02/24 10/02/24 History unit/mL (1.5 mL) subcutaneous pen (Toujeo SoloStar U-300 Insulin) memantine 5 mg tablet mg 10/02/24 History Allergies Allergy/AdvReac Type Severity Reaction Status Date / Time No Known Allergies Allergy Verified 11/09/23 07:56 Exam Vital Signs Temp Pulse Resp BP Pulse Ox O2 Del Method 99.9 F 86 18 128/76 97 Room Air 10/02/24 23:16 10/03/24 09:00 10/03/24 09:00 10/03/24 09:00 10/03/24 09:00 10/03/24 09:00 Constitutional Constitutional: no acute distress Routine Respiratory Exam Respiratory: Present no resp distress Routine Abdominal Exam Abdominal: Present soft and tenderness (RUQ tenderness, negative Veloz's sign); Absent distended, rebound, guarding or firm Results Results: Laboratory Laboratory results: results reviewed Results: Imaging CT scan - abdomen: report reviewed and image reviewed Assessment & Plan Plan 89M with DMII, CAD s/p PCI, CVA, COPD on hospice care who was brought in to ER by family due to weakness and abdominal pain. 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 The gallbladder finding is likely a sequela of this mass and pt has not had any recent symptoms consistent with cholecystitis, so he does not warrant cholecystectomy or even percutaneous cholecystostomy Diet as tolerated
--- NOTE | 2024-10-03 10:25 | PC.NURSE ---
CALLED LAB IN REGARDS TO TIMED DRAW FOR PTT FOR HEPARIN. PER LAB WOULD CALL TECH TO COME DRAW PATIENT.
[2024-10-03 10:58] LABS: Partial Thromboplastin Time 47.5 Seconds (22.0-36.0)
--- NOTE | 2024-10-03 11:38 | PC.NURSE ---
CALLED AND SPOKE WITH DR GUO AND CONFIRMED PLAN TO DISCONTINUE HEPARIN DRIP
--- NOTE | 2024-10-03 14:24 | PC.SS ---
rounding note: Patient has order for hospice eval. Chart reviewed and patient is already open to [facility] at home. Physician prefers patient to d/c from ER back home with hospice. SS confirmed patient has insurance coverage for gurney transport. SS updated ED Coordinator.
--- NOTE | 2024-10-03 14:35 | PC.CC ---
Kimberly FLETCHER was contacted by DIONISIO Mejia to provide information that patient will be d/c from the ED according to the providers from Team C. Patient is connected to [facility]. Providers from the floor will be updating family and patient on d/c plan.
--- NOTE | 2024-10-03 15:11 | ESPR_ITS ---
<Statement entered by Adrienne Cedeño MD - 10/09/24 14:46> I reviewed above note and agree with findings and plans. I have also personally examined the patient with medicine team and went over assessment and plan with medical team including media intern and resident physician. Documentation for date of: 10/03/24 Subjective Subjective Interval history: Seen today at the bedside. Vital signs and labs reviewed. Spoke to the patient and family member who was at bedside this morning, they did not want any type of surgical intervention at this time. Patient however continues to have abdominal pain. Patient would likely benefit from hospice, in the afternoon attempted to contact multiple times family member in regards to this however family was not able to be reached. Will reassess in the a.m. Exam Vital Signs Temp Pulse Resp BP Pulse Ox O2 Del Method 99.0 F 92 20 126/77 94 L Room Air 10/03/24 14:58 10/03/24 14:58 10/03/24 14:58 10/03/24 14:58 10/03/24 14:58 10/03/24 14:58 Narrative Exam Physical Exam GENERAL: NAD, AAOx2-3, waxes and wanes HEENT: Moist mucosa. Eyes open, symmetrical, & clear CARDIO: Heart RRR, no obvious murmurs PULM: No noted coughing/dyspnea CTA B/L, no R/W/R GI: Abdomen soft, nondistended, no pain on palpation. BSx4 SKIN/MSK/EXT: No wounds/rashes/edema/amputations, no pain on palpation. Pedal pulses present B/L NEURO: AAOx3, no focal neuro deficits, able to move all 4 extremities Objective Labs 10/03/24 06:30 10/03/24 06:30 Labs: Laboratory Results - last 24 hr 10/02/24 10/02/24 10/02/24 16:20 19:27 21:38 WBC RBC Hgb Hct MCV MCH MCHC RDW Std Deviation Plt Count Neut % (Auto) Lymph % (Auto) Bell % (Auto) Eos % (Auto) Baso % (Auto) Neut # (Auto) Lymph # (Auto) Bell # (Auto) Eos # (Auto) Baso # (Auto) Immature Gran # (Auto) Absolute Nucleated RBC Immature Gran % Nucleated RBC % PT INR APTT D-Dimer 1360 H VBG pH 7.41 VBG pCO2 33 L VBG pO2 44 VBG O2 Sat (Nikita) 81 L VBG Base Excess -3 Sodium Potassium Chloride Carbon Dioxide Anion Gap BUN Creatinine Estim Creat Clear Calc eGFR BUN/Creatinine Ratio Glucose Calculated Osmolality Lactic Acid 4.8 H* Calcium Corrected Calcium Total Bilirubin AST ALT Alkaline Phosphatase Troponin I < 0.020 Total Protein Albumin Globulin Albumin/Globulin Ratio Lipase Procalcitonin 12.71 H 10/02/24 10/03/24 10/03/24 23:15 03:16 06:30 WBC 12.0 H RBC 4.04 L Hgb 11.4 L Hct 34.2 L MCV 85 MCH 28.2 MCHC 33.3 RDW Std Deviation 50.0 H Plt Count 292 D Neut % (Auto) 75 Lymph % (Auto) 9 L Bell % (Auto) 13 H Eos % (Auto) 2 Baso % (Auto) 1 Neut # (Auto) 9.0 H Lymph # (Auto) 1.1 Bell # (Auto) 1.5 H Eos # (Auto) 0.2 Baso # (Auto) 0.1 Immature Gran # (Auto) 0.17 H Absolute Nucleated RBC 0.00 Immature Gran % 1 H Nucleated RBC % 0 PT 14.5 H INR 1.4 H APTT 24.3 D-Dimer VBG pH VBG pCO2 VBG pO2 VBG O2 Sat (Nikita) VBG Base Excess Sodium 141 Potassium 3.7 D Chloride 105 Carbon Dioxide 24.5 Anion Gap 12 BUN 22 Creatinine 1.0 Estim Creat Clear Calc 48.4 L eGFR > 60 BUN/Creatinine Ratio 22 H Glucose 92 D Calculated Osmolality 284 Lactic Acid 2.8 H Calcium 8.6 Corrected Calcium 8.9 Total Bilirubin 0.8 AST 301 H ALT 256 H Alkaline Phosphatase 607 H D Troponin I Total Protein 6.2 Albumin 3.6 Globulin 2.6 Albumin/Globulin Ratio 1.4 Lipase 25 Procalcitonin 10/03/24 10:30 WBC RBC Hgb Hct MCV MCH MCHC RDW Std Deviation Plt Count Neut % (Auto) Lymph % (Auto) Bell % (Auto) Eos % (Auto) Baso % (Auto) Neut # (Auto) Lymph # (Auto) Bell # (Auto) Eos # (Auto) Baso # (Auto) Immature Gran # (Auto) Absolute Nucleated RBC Immature Gran % Nucleated RBC % PT INR APTT 47.5 H D D-Dimer VBG pH VBG pCO2 VBG pO2 VBG O2 Sat (Nikita) VBG Base Excess Sodium Potassium Chloride Carbon Dioxide Anion Gap BUN Creatinine Estim Creat Clear Calc eGFR BUN/Creatinine Ratio Glucose Calculated Osmolality Lactic Acid Calcium Corrected Calcium Total Bilirubin AST ALT Alkaline Phosphatase Troponin I Total Protein Albumin Globulin Albumin/Globulin Ratio Lipase Procalcitonin ABG Interpretation ABG results: 10/02/24 16:20 VBG pH 7.41 VBG pCO2 33 L VBG pO2 44 VBG Base Excess -3 Quality Measures Quality Measures none Advance care planning discussed with:: patient Assessment & Plan Assessment Current Active Medications: Generic Name Dose Route Start Last Admin Trade Name Freq PRN Reason Stop Dose Admin Acetaminophen 650 mg 10/03/24 05:51 Acetaminophen 325 Mg Tablet PO 11/02/24 05:50 Q6H PRN Fever >100.3 or pain Dextrose 25 ml 10/03/24 05:56 Dextrose 50%-Water Inj 50 Ml Syringe IV 11/02/24 05:55 Q15MIN PRN BG 50-70 responsive npo pt Dextrose 50 ml 10/03/24 05:56 Dextrose 50%-Water Inj 50 Ml Syringe IV 11/02/24 05:55 Q15MIN PRN BG <50 OR BG <70 & pt unresponsive Glucagon 1 mg 10/03/24 05:56 Glucagon Inj 1 Mg Vial IM Q15MIN PRN BG <70, and no IV access Piperacillin/Tazobactam/Dextrose 3.375 gm in 50 mls @ 12.5 mls/hr 10/03/24 06:15 10/03/24 10:30 Zosyn IV 10/10/24 06:14 Infused Q8HR EHSAN Infusion Insulin Human Lispro 0 unit 10/03/24 07:30 10/03/24 11:51 Insulin Lispro (Admelog) 1 Unit/0.01 Ml Unit SC 11/02/24 07:29 Not Given ACHS EHSAN Protocol Ondansetron HCl 4 mg 10/03/24 05:51 Ondansetron Inj 2 Mg/Ml Inj 2 Ml IV 11/02/24 05:50 Q6H PRN NAUSEA OR VOMITING Protocol Sennosides 1 tab 10/03/24 05:51 Senna Tablet PO 11/02/24 05:50 QDAY PRN constipation Protocol Plan 89 yr M with PMH of CAD s/p PCI, insulin-dependent diabetes mellitus, hypothyroidism, parkinsonism, history of CVA, BPH, dementia, AAA, COPD, on hospice care at home who was BIBA due to LE swelling and abdominal pain since past few days. Patient is poor historian and daughter Veena was contacted. Will admit patient for sepsis secondary to CAP vs cholecystitis. #Sepsis secondary to #CAP vs #Cholecystitis Per daughter, patient has not been experiencing abdominal pain since past 2 days. Denied any fever, nausea, vomiting, diarrhea. On admission WBCs 14, tachycardic 105, lactic acid 4.8, creatinine 1.4, Pro-Tulio 12. Sepsis due to PNA vs cholecystitis with acute sepsis-related organ dysfunction as evidence by LAURITA. CT A/P showed pneumonia right base, cirrhosis, splenomegaly, infrarenal abdominal aortic aneurysm 5.5x5.0 (slightly larger from 2023), 1-2 mm renal calculi - Surgery Dr. Lizarraga consulted, patient does not warrant cholecystectomy or even percutaneous cholecystostomy - NPO - Patient would likely benefit from hospice, in the afternoon attempted to contact multiple times family member in regards to this however family was not able to be reached - Zosyn 3.375 g TID - Blood cultures pending #IVC clot vs mass #Transaminitis Abdominal ultrasound suspicious for clot in IVC, cholecystitis. AST 266, ALT 118, alk phos 544. Elevated D-dimer 1360. ED repeated abdominal ultrasound with official read pending. - Cardiology Dr. Uribe was consulted, stated that is less likely a clot but possibly a mass. Said okay to admit. - BL LE US ordered for DVT r/o was negative - Continue heparin drip ? Follow-up on CTA chest/abdomen/pelvis per cardiology recs - on NS maintenance 125 cc/h #LAURITA BUN 31, creatinine 1.4 (baseline appears to be 1.0). Most likely prerenal in setting of sepsis. -avoid nephrotoxic agents -daily CMP #Hx Insulin-dependent type 2 diabetes, poorly controlled On admission initial glucose 276. Last A1c 8.9 on 05/27. Patient takes 30 units glargine, 1000 mg twice daily metformin for diabetes at home. -Held home medications -Bedside blood glucose checks ACHS -Insulin lispro sliding scale -Carb consistent low diet -A1c pending #Dementia #Hx Parkinsons -memantine resumed -carbi-dopa levodpa resumed - donepezil resumed #hx HLD #Hx CVA - resumed asa #Hx hypothyroidism -pending med recc #Hx BPH -tamsulosin resumed Case discussed with my senior Dr. Philip and my attending Dr. Gala Mi MD PGY-1 Health maintenance: Dispo: med surg, cholecystitis FEN: NPO DVT prophylaxis: Heparin CODE STATUS: DNR
--- NOTE | 2024-10-03 15:33 | PC.CC ---
Mario Henderson made contact with ASW and reports that patient will no longer be going upstairs and will be discharged from the ED with home hospice. ASW informed provider that he will need to speak with the family regarding the discharge plan and was provided the Next of Kin information on the demographics. He confirmed he would speak to family and provide call to ASW regarding update to family so ASW could make contact with family to arrange transportation.
--- NOTE | 2024-10-03 15:41 | PC.CC ---
REBECAW, made telephone contact with Provider Santiago who reports he called patient's daughter 3-4x and there was no answer. Patient has a room that has been assigned, provider reports he will reattempt to speak to family again tomorrow.
[2024-10-03 17:14] LABS: Lactate (Lactic Acid) 2.1 mMol/L (0.4-2.0)
[2024-10-03] MEDS: DONEPEZIL HCL 5 MG TABLET 10 MG PO (17:32)
[2024-10-03] MEDS: TAMSULOSIN HCL 0.4 MG CAPSULE 0.8 MG PO (17:32)
[2024-10-03] MEDS: INSULIN LISPRO (AdmeLOG) 1 UNIT/0.01 ML UNIT SC (17:32)
[2024-10-03] MEDS: ASPIRIN EC 81 MG TABEC PO (20:08)
[2024-10-03] MEDS: CARBIDOPA/LEVODOPA CR 50/200 TABCR 1 TAB PO (20:08)
[2024-10-03] MEDS: GABAPENTIN 300 MG CAPSULE PO (20:08)
[2024-10-03 20:11] LABS: Reflex Lactate? Y
[2024-10-03 20:56] LABS: Lactic Acid, 3 HR 2.2 mMol/L (0.4-2.0)
[2024-10-04] VITALS: BP 109/78; PULSE 62; PULSE 92; RESP 16; TEMP 36.1; O2SAT 96
[2024-10-04 04:00] VITALS: BP 127/77; PULSE 64; PULSE 89; RESP 17; TEMP 36.1; O2SAT 97
[2024-10-04] MEDS: PIPER/TAZO 3.375 GM PREMIX 3.375 GM/50 ML BAG IV (05:09)
[2024-10-04 05:35] LABS: Basophils # (Auto) 0.1 Thou/mm3 (0.0-0.2); Basophils % (Auto) 1 % (0-2.5); Eosinophils # (Auto) 0.2 Thou/mm3 (0.0-0.5); Eosinophils % (Auto) 2 % (0-10); Hematocrit 32.5 % (41.0-53.0); Hemoglobin 10.7 g/dL (13.5-16.0); Immature Granulocytes % (Auto) 2 % (0-0); Immature Granulocytes Auto 0.25 Thou/mm3 (0.00-0.00); Lymphocytes # (Auto) 1.2 Thou/mm3 (1.0-4.8); Lymphocytes % (Auto) 12 % (10-50); Mean Corpuscular HGB Conc 32.9 g/dl (31.0-37.0); Mean Corpuscular Hemoglobin 28.2 pg (25.0-35.0); Mean Corpuscular Volume 86 fL (80-100); Monocytes # (Auto) 1.2 Thou/mm3 (0.0-0.8); Monocytes % (Auto) 12 % (0-12); Neutrophils # (Auto) 7.6 Thou/mm3 (1.8-7.7); Neutrophils % (Auto) 71 % (37-80); Nucleated Red Blood Cell % 0 /100 WBC (0); Platelet Count 302 Thou/mm3 (140-440); RDW Standard Deviation 51.6 fL (35.1-43.9); White Blood Count 10.6 Thou/mm3 (3.8-10.6)
[2024-10-04 05:51] VITALS: BMI 27.3
[2024-10-04 05:55] LABS: Alanine Aminotransferase 35 U/L (10-49); Albumin, Serum 3.4 gm/dL (3.4-4.8); Albumin/Globulin Ratio 1.4 (1.2-2.2); Alkaline Phosphatase 601 U/L (46-116); Anion Gap 11 (7-16); Aspartate Amino Transferase 196 U/L (0-34); BUN/Creatinine Ratio 20 Ratio (12-20); Bilirubin,Total 0.7 mg/dL (0.3-1.2); Blood Urea Nitrogen 20 mg/dL (9-23); Calcium 8.2 mg/dL (8.3-10.6); Calcium (Corrected) 8.7 mg/dL (8.5-10.1); Chloride 104 mMol/L (98-107); Estimated Creatinine Clearance 47.2 mL/min (>60); Globulin 2.4 gm/dL (2.3-3.5); Glucose 230 mg/dL (74-106); Magnesium 1.3 mg/dL (1.6-2.6); Osmolality,Calculated 289 (275-295); Phosphorous 2.6 mg/dL (2.4-5.1); Potassium 3.9 mMol/L (3.4-5.1); Sodium 140 mMol/L (136-145); Thyroid Stimulating Hormone 6.82 uIU/mL (0.55-4.78); Total Protein 5.8 gm/dL (5.7-8.2); eGFR > 60 See Note
[2024-10-04 06:03] LABS: Glucose Estimated Average 226 mg/dL (80-131); Hemoglobin A1C 9.5 % Hgb (4.8-6.0)
[2024-10-04 07:30] VITALS: PULSE 83; RESP 18; RESP 95
[2024-10-04] MEDS: INSULIN LISPRO (AdmeLOG) 1 UNIT/0.01 ML UNIT SC ×2 (07:39→12:04)
[2024-10-04 08:00] VITALS: BP 113/72; PULSE 78; PULSE 96; RESP 18; TEMP 36.4; O2SAT 96
[2024-10-04] MEDS: TAMSULOSIN HCL 0.4 MG CAPSULE 0.8 MG PO (08:27)
[2024-10-04] MEDS: CARBIDOPA/LEVODOPA CR 50/200 TABCR 1 TAB PO (08:27)
[2024-10-04] MEDS: DONEPEZIL HCL 5 MG TABLET 10 MG PO (08:27)
--- NOTE | 2024-10-04 11:30 | ESPR_ITS ---
<Statement entered by Sanjay Uribe MD - 10/04/24 16:40> I examined the patient and evaluated today again patient is comfortable now upper quadrant pain is improved not complain of any chest pain or shortness of breath today stable patient's family decided to be DNR and hospice not to have any surgeries clinically is improving not have any cardiac decompensation. 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 Documentation for date of: 10/04/24 Subjective Subjective Interval history: Patient was examined bedside this morning, no acute overnight event. Patient does not want to do any procedure to be done . He denies any pain currently. family meeting today for goals of care Exam Vital Signs Temp Pulse Resp BP Pulse Ox O2 Del Method 97.6 F 78 18 113/72 96 Room Air 10/04/24 08:00 10/04/24 08:00 10/04/24 08:00 10/04/24 08:00 10/04/24 08:00 10/04/24 08:00 Narrative Exam GENERAL: elderly cacehic kade, HEENT: Normocephalic, atraumatic. Pupils are equal and reactive. Oral mucosa is moist. NECK: Supple, nontender, no JVD CHEST: Symmetrical, atraumatic and with equal expansion ,Nontender on palpation CARDIOVASCULAR: Heart regular rhythm & rate. S1/S2. no murmur or gallop rub or extra beats. LUNGS: Clear to auscultation bilaterally with symmetrical chest rise. No laboring tachypnea or wheezing. No intercostal subcostal retraction. No rales and no rhonchi. ABDOMEN: Soft, flat, nontender to palpation, no guarding or rebound tenderness. Active and normal bowel sounds. EXTREMITIES:Moves all 4 extremities,No B/L LE edema. SKIN: Warm and dry, no jaundice or rashes noted. NEURO: Patient is AO x 3, Cranial nerves II through XII grossly intact. There is no focal neurologic deficits noted. PSYCHIATRIC: Patient is in normal mood, cooperative, no SI or HI or hallucination Objective Labs 10/04/24 04:32 10/04/24 04:32 Labs: Laboratory Results - last 24 hr 10/03/24 10/03/24 10/04/24 16:55 20:48 04:32 WBC 10.6 RBC 3.80 L Hgb 10.7 L Hct 32.5 L MCV 86 MCH 28.2 MCHC 32.9 RDW Std Deviation 51.6 H Plt Count 302 Neut % (Auto) 71 Lymph % (Auto) 12 [place] % (Auto) 12 Eos % (Auto) 2 Baso % (Auto) 1 Neut # (Auto) 7.6 Lymph # (Auto) 1.2 [place] # (Auto) 1.2 H Eos # (Auto) 0.2 Baso # (Auto) 0.1 Immature Gran # (Auto) 0.25 H Absolute Nucleated RBC 0.00 Immature Gran % 2 H Nucleated RBC % 0 Sodium 140 Potassium 3.9 Chloride 104 Carbon Dioxide 25.0 Anion Gap 11 BUN 20 Creatinine 1.0 Estim Creat Clear Calc 47.2 L eGFR > 60 BUN/Creatinine Ratio [address] Glu mg/dL 226 H Hemoglobin A1c 9.5 H Calculated Osmolality 289 Lactic Acid 2.1 H 2.2 H Calcium 8.2 L Corrected Calcium 8.7 Phosphorus 2.6 Magnesium 1.3 L Total Bilirubin 0.7 AST 196 H ALT 35 Alkaline Phosphatase 601 H Total Protein 5.8 Albumin 3.4 Globulin 2.4 Albumin/Globulin Ratio 1.4 TSH 6.82 H ABG Interpretation ABG results: 10/02/24 16:20 VBG pH 7.41 VBG pCO2 33 L VBG pO2 44 VBG Base Excess -3 Quality Measures Quality Measures none Advance care planning discussed with:: patient Assessment & Plan Assessment Current Active Medications: Generic Name Dose Route Start Last Admin Trade Name Freq PRN Reason Stop Dose Admin Acetaminophen 650 mg 10/03/24 05:51 Acetaminophen 325 Mg Tablet PO 11/02/24 05:50 Q6H PRN Fever >100.3 or pain Aspirin 81 mg 10/03/24 21:00 10/03/24 20:08 Aspirin Ec 81 Mg Tabec PO 11/02/24 20:59 81 mg QPM EHSAN Administration Carbidopa/Levodopa 1 tab 10/03/24 21:00 10/04/24 08:27 Carbidopa/Levodopa Cr 50/200 Tabcr PO 11/02/24 20:59 1 tab BID EHSAN Administration Dextrose 25 ml 10/03/24 05:56 Dextrose 50%-Water Inj 50 Ml Syringe IV 11/02/24 05:55 Q15MIN PRN BG 50-70 responsive npo pt Dextrose 50 ml 10/03/24 05:56 Dextrose 50%-Water Inj 50 Ml Syringe IV 11/02/24 05:55 Q15MIN PRN BG <50 OR BG <70 & pt unresponsive Donepezil HCl 10 mg 10/03/24 16:30 10/04/24 08:27 Donepezil Hcl 5 Mg Tablet PO 11/02/24 16:29 10 mg QDAY EHSAN Administration Gabapentin 300 mg 10/03/24 21:00 10/03/24 20:08 Gabapentin 300 Mg Capsule PO 11/02/24 20:59 300 mg QPM EHSAN Administration Glucagon 1 mg 10/03/24 05:56 Glucagon Inj 1 Mg Vial IM Q15MIN PRN BG <70, and no IV access Piperacillin/Tazobactam/Dextrose 3.375 gm in 50 mls @ 12.5 mls/hr 10/03/24 06:15 10/04/24 05:09 Zosyn IV 10/10/24 06:14 12.5 mls/hr Q8HR EHSAN Administration Insulin Human Lispro 0 unit 10/03/24 07:30 10/04/24 07:39 Insulin Lispro (Admelog) 1 Unit/0.01 Ml Unit SC 11/02/24 07:29 1 unit ACHS EHSAN Administration Protocol Ondansetron HCl 4 mg 10/03/24 05:51 Ondansetron Inj 2 Mg/Ml Inj 2 Ml IV 11/02/24 05:50 Q6H PRN NAUSEA OR VOMITING Protocol Sennosides 1 tab 10/03/24 05:51 Senna Tablet PO 11/02/24 05:50 QDAY PRN constipation Protocol Tamsulosin HCl 0.8 mg 10/03/24 16:30 10/04/24 08:27 Tamsulosin Hcl 0.4 Mg Capsule PO 11/02/24 16:29 0.8 mg DAILY EHSAN Administration Plan 89-year-old male with past medical history of coronary artery disease status post PCI, history of CVA, DM-2, parkinsonian,Dementia, abdominal aortic aneurysm, COPD , suspicion of lung malignancy unable to do biopsy who is currently on hospice care was admitted on October 02 with chief complaint of abdominal pain and bilateral leg swelling. Initial vitals in the ED BP?102/59, P?108, RR?16, temperature?97.9 Saturating well on room. Labs WBC?12, hemoglobin?11.4, PT?14.5, INR?1.4, D-dimer?1360. Sodium?141, potassium?3.7, lactic acid? 2.8 . AST?301, ALT?256, alk phos?607, Pro-Tulio?12.7. CT A/P showed pneumonia right base, cirrhosis, splenomegaly, infrarenal abdominal aortic aneurysm 5.5x5.0 (slightly larger from 2023), 1-2 mm renal calculi . 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 -Elevated D-dimer 1360. -CT A/P showed pneumonia right base, cirrhosis, splenomegaly, infrarenal abdominal aortic aneurysm 5.5x5.0 (slightly larger from 2023), ? CTA chest/abdomen/pelvis- negative for PE - venous doppler b/l legs- no DVT - D/c heparin yesterday - he denied any procedure at this time, he was on home hospice , family meeting likely today # History of CAD s/p PCI -Resume atorvastatin Rest of medical ploblem as per primary team . # History of parkinsonism # History of dementia # History of CVA # History of insulin-dependent diabetes mellitus # History of hypothyroidism # History of solitary pulmonary nodule # Chronic smoker, stopped 20 years ago with 50 pack years # History of COPD # History of BPH Discussed the patient with my attending Dr Rony Michael MD,PGY-3
--- NOTE | 2024-10-04 11:35 | ESDS_ITS ---
<Statement entered by Adrienne Cedeño MD - 10/09/24 14:46> I reviewed above note and agree with findings and plans. I have also personally examined the patient with medicine team and went over assessment and plan with medical team including merchandising internship and resident physician. Planned Discharge Date 10/04/24 DS: Providers Provider Date of admission: 10/03/24 05:51 Primary care physician: Lamberto Grey MD Admitting Provider: Kathy Pineda MD Attending Provider on Admission: Kathy Pineda MD Consults: 10/03/24 05:41 Consult to General Surgery Stat Comment: Consulting Provider: Rosa Isela Lizarraga 10/03/24 05:56 Consult to Cardiology Routine Comment: Consulting Provider: Sanjay Uribe 10/03/24 13:42 Referral Hospice Stat Comment: Attending Provider on DC: Adrienne Cedeño MD Discharging Provider: Justen Philip MD DS: Diagnosis Discharge Diagnosis (1) Admission for hospice care: Status: Acute Problem List Completed Was Problem List Reviewed/Reconciled?: Yes Hospital Course Hospital Course Hospital course: Mr Manuel is an 89M with DMII, CAD s/p PCI, CVA, COPD on hospice care who was brought in to ER by family due to weakness and abdominal pain. Per his daughter pt reported sudden abdominal pain when her brother was caring for him yesterday, but she states that it was not related to eating and that he has not had any nausea/vomiting or changes in his appetite. 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 Per general surgery, patients symptoms are not consistent with cholecystitis, so he does not warrant cholecystectomy or even percutaneous cholecystostomy. Patient decided to pursue hospice care. He refused any and all interventions at the hospital and would like to get comfort based care. Hospice agency was set up during the hospitalization. We are grateful to be able to participate in Mr Manuel's journey. We wish him the best. Plan discussed with my attending Dr Carolynn Cedeño, - Justen Philip MD Status at Discharge Cognitive/behavioral status at discharge: Stable and returned to baseline. Time Spent with Patient Time attestation: Total time spent providing and/or coordinating discharge services: More than 50% Time spent: Greater than 30 minutes Exam Vital Signs Temp Pulse Resp BP Pulse Ox O2 Del Method 97.6 F 78 18 113/72 96 Room Air 10/04/24 08:00 10/04/24 08:00 10/04/24 08:00 10/04/24 08:00 10/04/24 08:00 10/04/24 08:00 Narrative Exam GENERAL: NAD, AAOx2-3, waxes and wanes HEENT: Moist mucosa. Eyes open, symmetrical, & clear CARDIO: Heart RRR, no obvious murmurs PULM: No noted coughing/dyspnea CTA B/L, no R/W/R GI: Abdomen soft, nondistended, no pain on palpation. BSx4 SKIN/MSK/EXT: No wounds/rashes/edema/amputations, no pain on palpation. Pedal pulses present B/L NEURO: AAOx3, no focal neuro deficits, able to move all 4 extremities Discharge Plan Plan Patient Disposition: Home w/HOSPICE Patient condition on transfer: Stable Care Plan Goals: - Follow up with your PCP within 1 week - Please follow up with your Hospice agency re: further management plan - Return to ED incase of emergency. Prescriptions/Referrals Prescriptions/Med Rec: No Action tamsulosin [Flomax] 0.4 MG capsule,extended release 24hr 0.8 mg PO DAILY Qty: 0 Levothyroxine * (SYNTHROID *) 50 MCG tablet 50 mcg PO DAILY Qty: 0 Metformin Hcl 1,000 MG tablet 1,000 mg PO BID Qty: 0 multivitamin Tablet 1 tab PO QAM Rx Instructions: Bottle also said Multimineral. acetaminophen [Acetaminophen Extra Strength] 500 mg Tablet 325 mg PO Q6H PRN (Reason: Pain) carbidopa-levodopa 50-200 mg tablet extended release 1 tab PO BID Patient Comments: TAKE 1 TABLET BY MOUTH TWICE DAILY loratadine 10 mg Tablet 10 mg PO QAM insulin aspart U-100 [Novolog FlexPen U-100 Insulin] 100 unit/mL (3 mL) Insulin Pen 1 sliding scale dose SUBCUT USEASDIRECTD Rx Instructions: if bs >200 no insulin 201-250 3units 251-300 6 units 301-350 9 units 351-400 12 units 401 or > 15 units ferrous sulfate 325 mg (65 mg iron) tablet,delayed release (DR/EC) 325 mg PO TID Patient Comments: TAKE 1 TABLET BY MOUTH THREE TIMES DAILY AFTER A MEAL (DME) blood-glucose meter Kit See Rx Instructions .Route Qty: 1 0RF Rx Instructions: As directed insulin glargine U-300 conc [Toujeo SoloStar U-300 Insulin] 300 unit/mL (1.5 mL) insulin pen 25 unit subcut Q24H memantine 5 mg tablet 5 mg PO HS Patient Comments: TAKE 1 TABLET BY MOUTH DAILY fluticasone furoate-vilanterol [Breo Ellipta] 200-25 mcg/dose blister with device 1 inh inhalation BID donepezil 10 mg Tablet 10 mg PO QDAY albuterol sulfate 4 mg Tablet 4 mg PO BID baclofen 10 mg Tablet 10 mg PO HS PRN (Reason: Cramps) gabapentin 300 mg Capsule 300 mg PO QPM omeprazole 20 mg Capsule,Delayed Release(Dr/Ec) 20 mg PO EVERYOTHERDAY Rx Instructions: before a meal aspirin 81 mg Tablet 81 mg PO QPM dutasteride 0.5 mg Capsule 0.5 mg PO QDAY Referrals: Lamberto Grey MD [Primary Care Provider] - Patient/Caregiver Discharge Instructions Discharge Activity: activity as tolerated and resume usual activities Education Materials: Hospice The Importance of ... Print Language: Scottish Stand Alone Forms: Dionne Award Info., Patient Portal Info Letter Discharge Order Discharge Orders: Discharge (Routine); Ordered 10/04/24 Ordered By: Justen Philip Quality Discharge Quality Measures VTE prophylaxis
--- NOTE | 2024-10-04 11:50 | PC.SS ---
Patient is physically incapable of utilizing regular toilet facilities because his or her diagnosis confines the patient to a single room. Patient is confined to a single level, and there is no toilet on that level; patient cannot access the toilet facilities in a timely manner due to limited ambulation.
[2024-10-04 12:00] VITALS: BP 117/97; PULSE 91; PULSE 96; RESP 18; TEMP 36.5; O2SAT 97
--- NOTE | 2024-10-04 13:02 | PC.SS ---
Addendum entered by Makenzie Westfall 10/04/24 14:44: SS informed patient has discharged with his son Enmanuel. [facility] informed of patient's discharge. Addendum entered by Makenzie Westfall 10/04/24 14:27: SS informed by ELIO Singletary, patient's alternate decisionmaker/daughter Veena Manuel [phone] requesting to speak to SS. Patient's daughter Veena stated she would like patient to continue with [facility]. SS to inform ETA of discharge to Veena and [facility]. Original Note: ELIO Singletary contacted to confirm if [facility] will be providing home medication and able to see patient in the home for continued care today. SS contacted [facility] and she confirmed [facility] nursing staff will be meeting with patient in the home today for medication support and continued care. SS informed by ELIO Singletary patient is needing BSC and is ready for discharge. SS confirmed home address and contact number for DME delivery with patient and his son Obdulio Manuel JR. DME Remedy contact information provided at bedside for patient follow up. SS informed by Dr. Philip patient is interested in hospice. SS received call from [facility], she explained patient is an established client with [facility]. [facility] is requesting Discharge Summary and clinicals be sent through [employer]. ELIO Singletary and Dr. Philip informed.
[2024-10-04 14:15] VITALS: BP 136/82; PULSE 91; RESP 18; TEMP 36.3; O2SAT 95
== END 2024-10-04 14:32 | disposition hospice, home (50) | DRG 871 ==
LOC: SERX 22:23 → SERHOLD 10-03 06:19 → S2NX 10-03 15:58
PROVIDERS: Emergency Medicine; Student in an Organized Health Care Education/Training Program; Admitting Provider Student in an Organized Health Care Education/Training Program; Emergency Provider Emergency Medicine; PCP Family Medicine; Visit Provider Student in an Organized Health Care Education/Training Program
DX: A41.9 Sepsis, unspecified organism (principal); I82.220 Acute embolism and thrombosis of inferior vena cava; J18.9 Pneumonia, unspecified organism; N17.9 Acute kidney failure, unspecified; J44.0 Chronic obstructive pulmonary disease with (acute) lower respiratory infection; I71.40 Abdominal aortic aneurysm, without rupture, unspecified; I25.10 Atherosclerotic heart disease of native coronary artery without angina pectoris; G30.9 Alzheimer's disease, unspecified; E03.9 Hypothyroidism, unspecified; F02.80 Dementia in other diseases classified elsewhere, unspecified severity, without behavioral disturbance, psychotic disturbance, mood disturbance, and anxiety; K21.9 Gastro-esophageal reflux disease without esophagitis; N40.0 Benign prostatic hyperplasia without lower urinary tract symptoms; E11.9 Type 2 diabetes mellitus without complications; K74.60 Unspecified cirrhosis of liver; E78.00 Pure hypercholesterolemia, unspecified; G20.A1 Parkinson's disease without dyskinesia, without mention of fluctuations; K81.9 Cholecystitis, unspecified; H91.90 Unspecified hearing loss, unspecified ear; I10 Essential (primary) hypertension; Z98.61 Coronary angioplasty status; Z79.4 Long term (current) use of insulin; Z66 Do not resuscitate; N20.0 Calculus of kidney; Z51.5 Encounter for palliative care; Z79.82 Long term (current) use of aspirin; Z79.84 Long term (current) use of oral hypoglycemic drugs; Z87.891 Personal history of nicotine dependence; Z86.73 Personal history of transient ischemic attack (TIA), and cerebral infarction without residual deficits; I71.43 Infrarenal abdominal aortic aneurysm, without rupture
CPT/HCPCS: 36415; 71045; 71275; 74174; 74176; 76705; 80053; 81001; 82140; 82803; 83036; 83605; 83690; 83735; 83880; 84100; 84145; 84443; 84484; 85025; 85379; 85610; 85730; 87040; 87400; 87811; 93970; 96361; 96365; 96366; 96367; 99285; A4649; J1644; J1815; J2543; J7030; Q9967; A9270

== ENCOUNTER 2024-10-10 10:26 | Inpatient (IN) | payer OTHER, MEDICAID, MEDICARE, SELFPAY ==
[2024-10-10] VITALS (25 sets, daily range): BP systolic 100–141; BP diastolic 61–99; PULSE 82–104; RESP 8–24; TEMP 36.4–36.7; O2SAT 94–99; BMI 27.1
--- NOTE | 2024-10-10 11:29 | XR_ITS ---
Examination: CT brain head without contrast. 2-D sagittal coronal reconstructions Date and time of exam:October 10, 2024 1223 hours COMPARISON: May 13, 2024 INDICATIONS: Altered mental status today CTDI: vol (mGy):52.9 DLP: (mGycm):1086 Technique: Multiple CT axial sections of the brain have been obtained, 5 mm slice thickness. Contrast has not been administered. 2-D sagittal, coronal reconstructions have been obtained Low dose protocols were performed. One or more of the following dose reduction techniques were used; automated exposure control, adjustment of the mA and/or KV according to patient size, use of iterative reconstruction technique. Findings: No significant ventricular enlargement. Old infarct left cerebellar hemisphere and right basal ganglia Intra-axial or extra-axial hemorrhage density is not seen. No mass effect or midline shift Basal cisterns are not remarkable. Fourth ventricle is midline. Cranial vault intact. Impression: Negative for acute hemorrhage, mass effect or midline shift Advise clinical correlation and follow-up accordingly
[2024-10-10] MEDS: DEXTROSE 10%-WATER 1000 ML 1,000 ML 100 ML IV (11:40)
[2024-10-10 11:57] LABS: Basophils # (Auto) 0.1 Thou/mm3 (0.0-0.2); Basophils % (Auto) 0 % (0-2.5); Eosinophils # (Auto) 0.1 Thou/mm3 (0.0-0.5); Eosinophils % (Auto) 0 % (0-10); Hematocrit 34.1 % (41.0-53.0); Hemoglobin 11.4 g/dL (13.5-16.0); Immature Granulocytes % (Auto) 14 % (0-0); Immature Granulocytes Auto 1.69 Thou/mm3 (0.00-0.00); Lymphocytes # (Auto) 0.6 Thou/mm3 (1.0-4.8); Lymphocytes % (Auto) 5 % (10-50); Mean Corpuscular HGB Conc 33.4 g/dl (31.0-37.0); Mean Corpuscular Hemoglobin 28.2 pg (25.0-35.0); Mean Corpuscular Volume 84 fL (80-100); Monocytes # (Auto) 1.5 Thou/mm3 (0.0-0.8); Monocytes % (Auto) 12 % (0-12); Neutrophils # (Auto) 8.5 Thou/mm3 (1.8-7.7); Neutrophils % (Auto) 69 % (37-80); Nucleated Red Blood Cell % 0 /100 WBC (0); Platelet Count 308 Thou/mm3 (140-440); RDW Standard Deviation 50.8 fL (35.1-43.9); Red Blood Count 4.04 Miln/mm3 (4.50-5.90); White Blood Count 12.5 Thou/mm3 (3.8-10.6)
--- NOTE | 2024-10-10 12:15 | PC.NURSE ---
Patient to CT
[2024-10-10 12:20] LABS: Partial Thromboplastin Time 29.1 Seconds (22.0-36.0); Prothrombin Time 15.3 Seconds (9.0-12.2)
[2024-10-10 12:24] LABS: Acetaminophen < 2.0 mcg/mL (10.0-20.0); Alanine Aminotransferase 134 U/L (10-49); Albumin, Serum 3.5 gm/dL (3.4-4.8); Albumin/Globulin Ratio 1.4 (1.2-2.2); Alcohol, Blood Medical < 10.0 mg/dL (0-10.0); Alkaline Phosphatase 731 U/L (46-116); Anion Gap 9 (7-16); Aspartate Amino Transferase 244 U/L (0-34); BUN/Creatinine Ratio 23 Ratio (12-20); Bilirubin,Total 0.8 mg/dL (0.3-1.2); Blood Urea Nitrogen 28 mg/dL (9-23); Calcium 8.9 mg/dL (8.3-10.6); Calcium (Corrected) 9.3 mg/dL (8.5-10.1); Carbon Dioxide 27.2 mMol/L (20.0-31.0); Chloride 103 mMol/L (98-107); Creatinine (Component) 1.2 mg/dL (0.6-1.3); Estimated Creatinine Clearance 36.5 mL/min (>60); Globulin 2.5 gm/dL (2.3-3.5); Glucose 78 mg/dL (74-106); Magnesium 1.4 mg/dL (1.6-2.6); Osmolality,Calculated 282 (275-295); Potassium 3.2 mMol/L (3.4-5.1); Salicylate < 3.0 mg/dL; Sodium 139 mMol/L (136-145); Troponin I < 0.020 ng/mL (0.0-0.045); eGFR 58 See Note
[2024-10-10 12:50] LABS: Collection Type, Urine Clean Catch; RBC,Urine 0 /hpf (0-3); WBC,Urine 0 /hpf (0-5)
--- NOTE | 2024-10-10 12:52 | PD.EDADULT ---
ED General RME/HPI General Chief complaint: General Adult/Misc Complain Stated complaint: HYPOGLYCEMIA Time Seen by Provider: 10/10/24 11:22 Arrival date/time: 10/10/24 10:26 Limitations: no limitations RME / HPI RME / HPI narrative: 89 year old male with history of Parkinson's disease, CVA, dementia, CAD s/p PCI, insulin-dependent diabetes, COPD, hypothyroidism, BPH presents to the ED BIBA from home for evaluation of altered mental status today. Per family, noted patient to be altered and not responding to his name, prompting calling 911. Daughter states at baseline patient is awake, alert, conversive. Per medics, on their arrival blood glucose was 29 and given 250ml of D10. Repeat blood glucose 224. Daughter at bedside reports patient has had decreased appetite and continues to administer the same amount of insulin. States last night had a very small dinner, blood sugar was 132, and took his Metformin and Lantus. On arrival to ED patient is obtunded and unable to provide any additional history. Related Data Home Medications ?Medication ?Instructions ?Recorded ?Confirmed Levothyroxine * (SYNTHROID *) 50 mcg PO DAILY ##0 08/18/12 10/02/24 Metformin Hcl 1,000 mg PO BID ##0 08/18/12 10/02/24 tamsulosin 0.4 mg capsule (Flomax) 0.8 mg PO DAILY ##0 08/18/12 10/02/24 carbidopa ER 50 mg-levodopa 200 mg 1 tab PO BID 08/02/21 10/02/24 tablet,extended release loratadine 10 mg tablet 10 mg PO QAM 08/02/21 10/02/24 acetaminophen 500 mg tablet 325 mg PO Q6H PRN Pain 12/05/21 10/02/24 (Acetaminophen Extra Strength) multivitamin 1 tab PO QAM 12/05/21 10/02/24 albuterol sulfate 4 mg tablet 4 mg PO BID 10/15/23 10/02/24 aspirin 81 mg tablet 81 mg PO QPM 10/15/23 10/02/24 baclofen 10 mg tablet 10 mg PO HS PRN Cramps 10/15/23 10/02/24 donepezil 10 mg tablet 10 mg PO QDAY 10/15/23 10/02/24 dutasteride 0.5 mg capsule 0.5 mg PO QDAY 10/15/23 10/02/24 gabapentin 300 mg capsule 300 mg PO QPM 10/15/23 10/02/24 omeprazole 20 mg capsule,delayed 20 mg PO EVERYOTHERDAY 10/15/23 10/02/24 release ferrous sulfate 325 mg (65 mg 325 mg PO TID 05/13/24 10/02/24 iron) tablet,delayed release insulin aspart U-100 100 unit/mL 1 sliding scale dose subcut 05/13/24 10/02/24 (3 mL) subcutaneous pen (Novolog USEASDIRECTD FlexPen U-100 Insulin aspart) insulin glargine U-300 conc 300 25 unit subcut Q24H 10/02/24 10/03/24 unit/mL (1.5 mL) subcutaneous pen (Toujeo SoloStar U-300 Insulin) memantine 5 mg tablet 5 mg PO HS 10/02/24 10/03/24 fluticasone furoate 200 1 inh inhalation BID 10/03/24 10/03/24 mcg-vilanterol 25 mcg/dose inhalation powder (Breo Ellipta) Previous Rx's ?Medication ?Instructions ?Recorded blood-glucose meter #1 ea 05/14/24 Allergies Allergy/AdvReac Type Severity Reaction Status Date / Time No Known Allergies Allergy Verified 11/09/23 07:56 Review of Systems Review of Systems ROS Unobtainable: unobtainable due to mental status Past Medical History Past Medical History NEUROLOGIC: Positive Neurological Disorders, Cerebrovascular Accident, Dementia, Alzheimer's Disease and Parkinson's Disease; Negative Seizures CARDIAC: Positive Atherosclerotic Heart Disease, Hypercholesterolemia, Aneurysm and Hypertension; Negative Cardiac Disorders or Congestive Heart Failure RESPIRATORY: Positive Asthma, Bronchitis and Pneumonia; Negative Chronic Obstructive Pulmonary Disease (COPD) GASTROINTESTINAL: Positive Gastrointestinal Disorders and Gastroesophageal Reflux Disease GENITOURINARY: Positive Benign Prostatic Hyperplasia; Negative Renal Disease MUSCULOSKELETAL: Positive Musculoskeletal Disorders and Arthritis ENDOCRINE: Positive Endocrine Disorders, Diabetes Mellitus Type 2 and Hypothyroidism; Negative Diabetes Mellitus Type 1 HEMATOLOGIC: Negative Blood Disorders or Sickle Cell Disease PSYCHO/SOCIAL: Positive Anxiety OTHER HISTORY: Positive Falls; Negative Developmental Delay, Anesthesia Reactions, MRSA, Clostridium Difficile or Cancer Family History FAMILY HISTORY: Negative Family Cardiac Disorders Surgical History SURGICAL: Positive Coronary Stent; Negative Endocrine Surgery or Ear Surgery Social History SMOKING STATUS: Former smoker SECOND HAND EXPOSURE: No SUBSTANCE USE: does not use ED Exam General Limitations: Present no limitations General appearance: Present other (Arrived obtunded ) Head Head exam: Present atraumatic, normocephalic and normal inspection Eye Eye exam: Present normal appearance ENT ENT exam: Present normal exam, normal oropharynx and mucous membranes moist Neck Neck exam: Present normal inspection, full ROM, trachea midline and other (No neck mass ) Chest Chest inspection: Present normal inspection and symmetric chest wall rise Respiratory Respiratory exam: Present other (Anterior rhonchi left mid lobe ) Cardiovascular Cardiovascular exam: Present regular rate, normal rhythm and normal heart sounds Abdominal Exam Abdominal exam: Present soft and normal bowel sounds Extremities Exam Extremities exam: Present full ROM and other (RLE 2-3+ pitting edema, LLE 1-2+ pitting edema ) Neurological Exam Neurological exam: Present other (Patient arrived obtunded, sleeping, unable to further assess neuro) Psychiatric Psychiatric exam: Present normal affect and normal mood Skin Skin exam: Present warm, dry, intact and normal color Course Quality Measures none Orders Category Date Time Status Bedside Blood Glucose STAT Care 10/10/24 11:23 Active COVID-19 Screening Questionnaire NOW Care 10/10/24 17:30 Active Disassembler STAT Care 10/10/24 11:23 Active Continuous Pulse Oximetry NOW Care 10/10/24 11:23 Active Decision to Admit X1 Care 10/10/24 17:30 Active Insert IV STAT Care 10/10/24 11:23 Active NPO NOW Care 10/10/24 11:[address] head/brain wo con Stat Exams 10/10/24 11:29 Completed Acetaminophen Stat Lab 10/10/24 11:49 Completed Alcohol, Blood Medical Stat Lab 10/10/24 11:49 Completed CBC Stat Lab 10/10/24 11:49 Completed Comprehensive Metabolic Panel Stat Lab 10/10/24 11:49 Completed Drug Screen,Urine Stat Lab 10/10/24 15:19 Completed Magnesium Stat Lab 10/10/24 11:49 Completed Partial Thromboplastin Time Stat Lab 10/10/24 11:49 Completed Path Review Blood Smear Stat Lab 10/10/24 11:49 Completed Prothrombin Time with INR Stat Lab 10/10/24 11:49 Completed Salicylate Stat Lab 10/10/24 11:49 Completed Troponin I Stat Lab 10/10/24 11:49 Completed Urinalysis Stat Lab 10/10/24 12:31 Completed Dextrose 10%-Water 1000 ml [D10w 1000 ml] 1,000 ml Med 10/10/24 11:30 Active IV 100 mls/hr Dextrose 50% Syr [D50w Syringe Abboject] Med 10/10/24 11:23 Active 25 ml IV Q15MIN PRN Dextrose 50% Syr [D50w Syringe Abboject] Med 10/10/24 11:23 Active 50 ml IV Q15MIN PRN Potassium Chloride [K-Dur] Med 10/10/24 17:29 Discontinued 40 meq PO X1 ONE Vital Signs Vital signs: Vital Signs Temperature 98.0 F 10/10/24 10:38 Pulse Rate 96 10/10/24 10:38 Respiratory Rate 18 10/10/24 10:38 Blood Pressure 115/72 10/10/24 10:38 Pulse Oximetry (%) 96 10/10/24 10:38 Oxygen Delivery Method Room Air 10/10/24 10:38 Pulse ox is 96% on room air which is adequate. Discharge Plan Plan Patient Disposition: Admit Acute Care w/in Hospital Problem List Clinical Impression: Hypoglycemia, Diabetes MDM Narrative MDM hospital course (for use when minimal MDM required): IFlakita, am scribing for and in the presence of Dr. Murphy. 1602: Patient is alert and reports feeling improved. Plan to discharge him home. Advised patient and family to discontinue Lantus and use sliding scale insulin only, as previously discussed. Family expressed concern about leg edema. Recommended use of compression stockings and leg elevation. Advised them to follow up with the primary care physician for further evaluation of the edema. Encouraged intake of potassium-rich foods such as bananas and green leafy vegetables to support electrolyte balance. 1713: Family requesting patient be admitted. State they do not feel safe taking the patient home. I spoke with hospitalist Dr. Pineda regarding admission. Discussed patients PMHx, HPI, ED course, exam findings, labs, and radiology results. The hospitalist agree to accept the patient for admission. Clinical Information Provided by: EMS and family Medical Records reviewed [facility] (I reviewed admission from 10/02/2024 through 10/04/2024 ) and EMS Meds/Rx considered, not ordered None Labs/Rad/Tests considered, not ordered None Chronic Illness/Social Conditions which may negatively complicate care or outcome(s)-explain: None or not applicable EKG Interpretation EKG #1: EKG Interpretation: EKG @ 11:01. Sinus rhythm, rate 94, no acute ischemic changes, no STEMI. Labs Labs: Interpreted by me Lab(s) Interpretation(s): Potassium just below normal range, advised patient eat more bananas and green vegetables. Imaging Imaging interpretation: Interpreted by al Imaging Interpretation(s): Ordering Physician: Nader Murphy MD Date of Service: 10/10/24 Procedure(s): CT head/brain wo con Accession Number(s): [id number] cc: Nader Murphy MD; Jeramie Jessica MD; Lamberto Grey MD~ Examination: CT brain head without contrast. 2-D sagittal coronal reconstructions Date and time of exam:October 10, 2024 1223 hours COMPARISON: May 13, 2024 INDICATIONS: Altered mental status today CTDI: vol (mGy):52.9 DLP: (mGycm):1086 Technique: Multiple CT axial sections of the brain have been obtained, 5 mm slice thickness. Contrast has not been administered. 2-D sagittal, coronal reconstructions have been obtained Low dose protocols were performed. One or more of the following dose reduction techniques were used; automated exposure control, adjustment of the mA and/or KV according to patient size, use of iterative reconstruction technique. Findings: No significant ventricular enlargement. Old infarct left cerebellar hemisphere and right basal ganglia Intra-axial or extra-axial hemorrhage density is not seen. No mass effect or midline shift Basal cisterns are not remarkable. Fourth ventricle is midline. Cranial vault intact. Impression: Negative for acute hemorrhage, mass effect or midline shift Advise clinical correlation and follow-up accordingly Dictated By: Jeramie Jessica MD Signed By: <Electronically signed by Jeramie Jessica MD in [place]> 10/10/24 1254 Medication Administration(s) Medication Administration History Dextrose (Dextrose 50%-Water Inj 50 Ml Syringe) 25 ml IV Q15MIN PRN PRN Reason: BG 50-70 responsive npo pt Stop: 11/09/24 11:22 Dextrose (Dextrose 50%-Water Inj 50 Ml Syringe) 50 ml IV Q15MIN PRN PRN Reason: BG <50 OR BG <70 & pt unresponsive Stop: 11/09/24 11:22 Dextrose (D10w 1000 Ml) 1,000 mls @ 100 mls/hr IV .Q10H EHSAN Stop: 10/10/24 21:29 Last Admin: 10/10/24 11:40 Dose: 100 mls/hr Documented By: CG Discontinued Medications Potassium Chloride (Potassium Chloride 20 Meq Tabcr) 40 meq PO X1 ONE Stop: 10/10/24 17:30 Last Admin: 10/10/24 18:18 Dose: 40 meq Documented By: CG See above Diagnosis Diagnoses ruled out and/or further discussions: Hypoglycemia Diabetes
[2024-10-10 13:28] LABS: Bacteria,Urine Rare; Bilirubin,Urine Negative (Negative); Blood,Urine Negative (Negative); Clarity,Urine Clear (Clear/Hazy); Color,Urine Colorless (Lt Yel-Yel); Glucose, Urine Negative (Negative); Ketones,Urine Negative (Negative); Leukocyte Esterase,Urine Negative (Negative); Nitrite,Urine Negative (Negative); Protein,Urine Negative (Neg - Trace); Specific Gravity,Urine 1.003 (1.001-1.035); Squamous Epithelial Cell,Urine 2 /hpf (0-5); Urobilinogen,Urine Negative mg/dL (0.0-1.0)
[2024-10-10 13:58] LABS: INR 1.4 (0.9-1.3)
[2024-10-10 14:22] LABS: Path Review Blood Smear Sent to Pathologist
[2024-10-10 16:00] LABS: Amphetamine/Methamp Scrn,U Negative (Negative); Barbiturate Screen,Urine Negative (Negative); Benzodiazepines Screen,Urine Negative (Negative); Benzoylecgonine Screen, Ur Negative (Negative); Fentanyl Screen,Urine Negative (Negative); Opiate Screen,Urine Negative (Negative); THC Screen,Urine Negative (Negative)
[2024-10-10] MEDS: POTASSIUM CHLORIDE 20 mEq TABCR 40 MEQ PO ×2 (18:18→20:11)
--- NOTE | 2024-10-10 18:58 | PD.HHHP ---
Documentation for date of: 10/10/24 HPI - Hospitalist History of Present Illness History of present illness: Patient is an 89 years old male with past medical history of CAD status post PCI, diabetes mellitus, hypothyroidism, parkinsonism, history of CVA, BPH, dementia, abdominal aortic aneurysm, COPD on hospice care at home who presented to the ED with complaint of altered mental status. HPI completed with help of patient and daughter on phone. 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 In the ED, he was found to have a blood glucose of 29. He had taken his Latus in the evening last night. Lab results were significant for WBC of 12.5, hemoglobin of 11.4, PT/INR 15.3/1.4, potassium 3.2, BUN/creatinine 28/1.2, magnesium 1.4, AST/ALT T 244/134, ALP 731. Head CT was done, which is negative for acute hemorrhage, mass effect or midline shift. The daughter is also concerned about his lower limb swelling for which she was started on Lasix since yesterday. At bedside, patient is alert and awake, able to answer questions and follow commands. Denied any pain, shortness of breath, chest pain, dizziness. We will admit the patient on observation for close monitoring of glucose. Past medical history: Insulin-dependent diabetes mellitus, CAD, hypothyroidism, hypertension, parkinsonism, dementia, history of CVA, COPD, suspicion of lung malignancy Past surgical history history: CAD s/p PCI, surgery for carpal tunnel syndrome Social history: Ex-smoker, smoked from the age of [age], almost 50 pack years, occasional alcoholic, denies other illicit drug abuse. Allergies: NKDA Review of Systems Review of Systems Systems Reviewed: All systems reviewed, normal except as documented Meds Home Medications and Allergies Home Medications ?Medication ?Instructions ?Recorded ?Confirmed ?Type Levothyroxine * (SYNTHROID *) 50 mcg PO DAILY ##0 08/18/12 10/02/24 History Metformin Hcl 1,000 mg PO BID ##0 08/18/12 10/02/24 History tamsulosin 0.4 mg capsule (Flomax) 0.8 mg PO DAILY ##0 08/18/12 10/02/24 History carbidopa ER 50 mg-levodopa 200 mg 1 tab PO BID 08/02/21 10/02/24 History tablet,extended release loratadine 10 mg tablet 10 mg PO QAM 08/02/21 10/02/24 History acetaminophen 500 mg tablet 325 mg PO Q6H PRN Pain 12/05/21 10/02/24 History (Acetaminophen Extra Strength) multivitamin 1 tab PO QAM 12/05/21 10/02/24 History albuterol sulfate 4 mg tablet 4 mg PO BID 10/15/23 10/02/24 History aspirin 81 mg tablet 81 mg PO QPM 10/15/23 10/02/24 History baclofen 10 mg tablet 10 mg PO HS PRN Cramps 10/15/23 10/02/24 History donepezil 10 mg tablet 10 mg PO QDAY 10/15/23 10/02/24 History dutasteride 0.5 mg capsule 0.5 mg PO QDAY 10/15/23 10/02/24 History gabapentin 300 mg capsule 300 mg PO QPM 10/15/23 10/02/24 History omeprazole 20 mg capsule,delayed 20 mg PO EVERYOTHERDAY 10/15/23 10/02/24 History release ferrous sulfate 325 mg (65 mg 325 mg PO TID 05/13/24 10/02/24 History iron) tablet,delayed release insulin aspart U-100 100 unit/mL 1 sliding scale dose subcut 05/13/24 10/02/24 History (3 mL) subcutaneous pen (Novolog USEASDIRECTD FlexPen U-100 Insulin aspart) insulin glargine U-300 conc 300 25 unit subcut Q24H 10/02/24 10/03/24 History unit/mL (1.5 mL) subcutaneous pen (Toujeo SoloStar U-300 Insulin) memantine 5 mg tablet 5 mg PO HS 10/02/24 10/03/24 History fluticasone furoate 200 1 inh inhalation BID 10/03/24 10/03/24 History mcg-vilanterol 25 mcg/dose inhalation powder (Breo Ellipta) Allergies Allergy/AdvReac Type Severity Reaction Status Date / Time No Known Allergies Allergy Verified 11/09/23 07:56 Exam Vital Signs Temp Pulse Resp BP Pulse Ox O2 Del Method 97.5 F 92 20 133/83 H 95 Room Air 10/10/24 18:36 10/10/24 18:36 10/10/24 18:36 10/10/24 18:36 10/10/24 18:36 10/10/24 18:36 Narrative General: Elderly male, hard of hearing, no acute distress, cooperative HEENT: NCAT, No JVD noted. Mucosa moist. Pupils are equal and reactive to light bilaterally Cardiovascular: Normal S1 and S2. Regular rate and rhythm. Respiratory: Lungs are clear to auscultation bilaterally. No wheezing or crackles heard. Abdomen: Soft, right upper quadrant tender to palpation, no rebound tenderness ,not distended, normal bowel sounds. Skin: Warm to touch, dry, no rashes noted Musculoskeletal: No gross injuries. Able to move all 4 extremities. 1+ bilateral lower extremity edema Neuro: Alert and oriented x3. No focal neuro deficits. Psych: Normal affect and mood Results - Hospitalist Labs Diagrams: 10/10/24 11:49 10/10/24 11:49 Labs: Short CBC 10/10/24 Range/Units 11:49 WBC 12.5 H (3.8-10.6) Thou/mm3 Hgb 11.4 L (13.5-16.0) g/dL Hct 34.1 L (41.0-53.0) % Plt Count 308 (140-440) Thou/mm3 BMP 10/10/24 11:49 Sodium 139 Potassium 3.2 L Chloride 103 Carbon Dioxide 27.2 BUN 28 H Creatinine 1.2 Glucose 78 Calcium 8.9 Cardiac Enzymes 10/10/24 Range/Units 11:49 Troponin I < 0.020 (0.0-0.045) ng/mL Liver Function 10/10/24 Range/Units 11:49 Total Bilirubin 0.8 (0.3-1.2) mg/dL AST 244 H (0-34) U/L ALT 134 H (10-49) U/L Alkaline Phosphatase 731 H (46-116) U/L Albumin 3.5 (3.4-4.8) gm/dL Urine 10/10/24 Range/Units 12:31 Urine Color Colorless A (Lt Yel-Yel) Urine Clarity Clear (Clear/Hazy) Urine pH 7.0 (5.0-7.0) Ur Specific [place] 1.003 (1.001-1.035) Urine Protein Negative (Neg - Trace) Urine Glucose (UA) Negative (Negative) Assessment & Plan -Hospitalist Additional Assessment Patient is an 89 years old male with past medical history of CAD status post PCI, diabetes mellitus, hypothyroidism, parkinsonism, history of CVA, BPH, dementia, abdominal aortic aneurysm, COPD on hospice care at home who presented to the ED with complaint of altered mental status. Found to have hypoglycemia, glucose of 29. Admitted on observation for close monitoring. #Severe hypoglycemia #Altered mental status Patient presented with altered mental status Head CT negative for acute hemorrhage, mass effect or midline shift Was found to have glucose level of 29 Was started on D5W 10 % at 100 cc/h Glucose level improved at 71 this evening We will continue with close glucose monitoring and D5W 10% at 100 cc/h #Electrolyte imbalances #Hypokalemia #Hypomagnesemia Patient has potassium of 3.2 and magnesium 1.4 Repleted total of 80 mEq potassium and 2 g magnesium Follow-up with CMP in a.m. #Elevated liver enzymes. #IVC mass Patient has AST/ALT/ALP of 244/134/731 Also complains of bilateral lower limb edema Likely from congestion secondary to the mass compressing IVC Patient had echocardiography on last visit, was followed by cardiology, stated no finding on abdominal ultrasound more likely to be a mass Follow-up with daily CMP #Insulin-dependent type 2 diabetes Hemoglobin A1c from last visit 9.5 Patient on Lantus 25 at home Holding insulin regimen in setting of hypoglycemia #Dementia #Parkinsons Resumed memantine, carbidopa levodopa and donepezil #Hyperlipidemia #History of CVA Resumed home aspirin #Hypothyroidism Resumed home levothyroxine # BPH Resumed tamsulosin Dispo: Telemetry on observation FEN: Regular diet DVT prophylaxis: Lovenox SC CODE STATUS: DNR/DNI Kathy Pineda MD Quality Measures Quality Measures none Advance care planning discussed with:: child
--- NOTE | 2024-10-10 19:58 | PC.NURSE ---
Pt noted to have 13 beats of VT noted on cardiac technologist, pt denied any chest pain, dizziness, or S.O.B, Dr Borrego made aware
[2024-10-10] MEDS: Magnesium Sulfate 2 GM Ivpb 2 GM/50 ML BAG IV (20:09)
[2024-10-10] MEDS: FUROSEMIDE INJ 10 MG/ML VIAL 2 ML 20 MG IVP (20:10)
[2024-10-10] MEDS: CARBIDOPA/LEVODOPA CR 50/200 TABCR 1 TAB PO ×2 (23:15→23:16)
[2024-10-10] MEDS: MEMANTINE HCL 5 MG TABLET PO (23:17)
[2024-10-11] VITALS (14 sets, daily range): BP systolic 86–145; BP diastolic 58–90; PULSE 90–107; RESP 17–22; TEMP 36.3–36.9; O2SAT 94–98
[2024-10-11 05:36] LABS: Basophils # (Auto) 0.1 Thou/mm3 (0.0-0.2); Basophils % (Auto) 1 % (0-2.5); Eosinophils # (Auto) 0.2 Thou/mm3 (0.0-0.5); Eosinophils % (Auto) 1 % (0-10); Hematocrit 35.8 % (41.0-53.0); Hemoglobin 11.4 g/dL (13.5-16.0); Immature Granulocytes % (Auto) 10 % (0-0); Lymphocytes # (Auto) 1.1 Thou/mm3 (1.0-4.8); Lymphocytes % (Auto) 9 % (10-50); Mean Corpuscular HGB Conc 31.8 g/dl (31.0-37.0); Mean Corpuscular Hemoglobin 27.9 pg (25.0-35.0); Mean Corpuscular Volume 88 fL (80-100); Monocytes # (Auto) 1.5 Thou/mm3 (0.0-0.8); Monocytes % (Auto) 12 % (0-12); Neutrophils # (Auto) 8.2 Thou/mm3 (1.8-7.7); Neutrophils % (Auto) 67 % (37-80); Nucleated Red Blood Cell % 0 /100 WBC (0); Platelet Count 305 Thou/mm3 (140-440); RDW Standard Deviation 52.7 fL (35.1-43.9); Red Blood Count 4.08 Miln/mm3 (4.50-5.90); White Blood Count 12.2 Thou/mm3 (3.8-10.6)
[2024-10-11] MEDS: LEVOTHYROXINE SODIUM 88 MCG TABLET 50 MCG PO (05:58)
[2024-10-11 06:16] LABS: Alanine Aminotransferase 117 U/L (10-49); Albumin, Serum 3.4 gm/dL (3.4-4.8); Albumin/Globulin Ratio 1.3 (1.2-2.2); Alkaline Phosphatase 762 U/L (46-116); Anion Gap 9 (7-16); Aspartate Amino Transferase 183 U/L (0-34); BUN/Creatinine Ratio 21 Ratio (12-20); Bilirubin,Total 0.8 mg/dL (0.3-1.2); Blood Urea Nitrogen 25 mg/dL (9-23); Calcium 8.7 mg/dL (8.3-10.6); Calcium (Corrected) 9.2 mg/dL (8.5-10.1); Carbon Dioxide 29.2 mMol/L (20.0-31.0); Chloride 99 mMol/L (98-107); Creatinine (Component) 1.2 mg/dL (0.6-1.3); Estimated Creatinine Clearance 36.5 mL/min (>60); Globulin 2.6 gm/dL (2.3-3.5); Glucose 194 mg/dL (74-106); Magnesium 1.6 mg/dL (1.6-2.6); Osmolality,Calculated 283 (275-295); Phosphorous 3.1 mg/dL (2.4-5.1); Potassium 4.6 mMol/L (3.4-5.1); Sodium 137 mMol/L (136-145); eGFR 58 See Note
--- NOTE | 2024-10-11 08:00 | PC.NURSE ---
IN TO ASSESS PT. PT RESTING QUIETLY AT THIS TIME WITHOUT ANY COMPLAINTS. V/S ASSESSED AND STABLE. SON AT BEDSIDE. CALL LIGHT PLACED WITHIN REACH. PLAN OF CARE ONGOING.
--- NOTE | 2024-10-11 08:30 | PC.NURSE ---
breakfast tray provided.
--- NOTE | 2024-10-11 09:05 | PC.NURSE ---
pharmacy called for order of becki win to bring med.
[2024-10-11] MEDS: ENOXAPARIN SOD INJ 40 MG/0.4 ML SYRINGE SC (09:07)
[2024-10-11] MEDS: ASPIRIN EC 81 MG TABEC PO (09:07)
[2024-10-11] MEDS: TAMSULOSIN HCL 0.4 MG CAPSULE PO (09:07)
[2024-10-11] MEDS: CARBIDOPA/LEVODOPA CR 50/200 TABCR 1 TAB PO ×2 (10:44→20:21)
--- NOTE | 2024-10-11 17:12 | PD.RESPRO ---
Documentation for date of: 10/11/24 Subjective Subjective Interval history: An 89-year-old male patient with past medical history of coronary artery disease status post PCI, diabetes mellitus, hypothyroidism, parkinsonism, history of CVA, BPH, dementia, abdominal aortic aneurysm, COPD, liver mass, on hospice care was brought to the ED due to altered mental status. Found to have blood glucose of 29 on presentation. On questioning family reported that they gave him the wrong dose of insulin glargine accidentally. Patient was admitted for acute encephalopathy secondary to severe hypoglycemia. Patient was started on D10 W at 100 mL/h, patient was transition to oral feeds however patient developed another episode of hypoglycemia with blood sugar of 48. Patient was given oral feeding which improved his blood sugar. Because the patient overdosed on long-acting insulin glargine we will continue to monitor the patient as the patient tolerate oral feeds with no drops and his blood sugar. 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 Objective Labs 10/11/24 05:18 10/11/24 05:18 Labs: Laboratory Results - last 24 hr 10/11/24 05:18 WBC 12.2 H RBC 4.08 L Hgb 11.4 L Hct 35.8 L MCV 88 MCH 27.9 MCHC 31.8 RDW Std Deviation 52.7 H Plt Count 305 Neut % (Auto) 67 Lymph % (Auto) 9 L [place] % (Auto) 12 Eos % (Auto) 1 Baso % (Auto) 1 Neut # (Auto) 8.2 H Lymph # (Auto) 1.1 [place] # (Auto) 1.5 H Eos # (Auto) 0.2 Baso # (Auto) 0.1 Immature Gran # (Auto) 1.20 H Absolute Nucleated RBC 0.00 Immature Gran % 10 H Nucleated RBC % 0 Sodium 137 Potassium 4.6 D Chloride 99 Carbon Dioxide 29.2 Anion Gap 9 BUN 25 H Creatinine 1.2 Estim Creat Clear Calc 36.5 L eGFR 58 L BUN/Creatinine Ratio 21 H Glucose 194 H D Calculated Osmolality 283 Calcium 8.7 Corrected Calcium 9.2 Phosphorus 3.1 Magnesium 1.6 Total Bilirubin 0.8 AST 183 H ALT 117 H Alkaline Phosphatase 762 H D Total Protein 6.0 Albumin 3.4 Globulin 2.6 Albumin/Globulin Ratio 1.3 Quality Measures Quality Measures none Advance care planning discussed with:: patient Assessment & Plan Assessment Current Active Medications: Generic Name Dose Route Start Last Admin Trade Name Freq PRN Reason Stop Dose Admin Acetaminophen 650 mg 10/10/24 18:51 Acetaminophen 325 Mg Tablet PO 11/09/24 18:50 Q6H PRN Fever >101.5 Acetaminophen 650 mg 10/10/24 18:51 Acetaminophen 325 Mg Tablet PO 11/09/24 18:50 Q6H PRN PAIN SCALE 1-3 (mild Aspirin 81 mg 10/11/24 09:00 10/11/24 09:07 Aspirin Ec 81 Mg Tabec PO 11/10/24 08:59 81 mg QDAY EHSAN Administration Carbidopa/Levodopa 1 tab 10/11/24 09:15 10/11/24 10:44 Carbidopa/Levodopa Cr 50/200 Tabcr PO 11/10/24 09:14 1 tab BID EHSAN Administration Dextrose 25 ml 10/10/24 11:23 Dextrose 50%-Water Inj 50 Ml Syringe IV 11/09/24 11:22 Q15MIN PRN BG 50-70 responsive npo pt Dextrose 50 ml 10/10/24 11:23 Dextrose 50%-Water Inj 50 Ml Syringe IV 11/09/24 11:22 Q15MIN PRN BG <50 OR BG <70 & pt unresponsive Donepezil HCl 10 mg 10/11/24 21:00 Donepezil Hcl 5 Mg Tablet PO 11/10/24 20:59 HS EHSAN Enoxaparin Sodium 40 mg 10/11/24 09:00 10/11/24 09:07 Enoxaparin Sod Inj 40 Mg/0.4 Ml Syringe SC 10/25/24 08:59 40 mg QDAY EHSAN Administration Levothyroxine Sodium 50 mcg 10/12/24 06:00 Levothyroxine Sodium 25 Mcg Tablet PO 11/11/24 05:59 ACBR EHSAN Memantine 5 mg 10/10/24 21:00 10/10/24 23:17 Memantine Hcl 5 Mg Tablet PO 11/09/24 20:59 5 mg HS EHSAN Administration Ondansetron HCl 4 mg 10/10/24 18:51 Ondansetron Inj 2 Mg/Ml Inj 2 Ml IV 11/09/24 18:50 Q6H PRN NAUSEA OR VOMITING Protocol Tamsulosin HCl 0.4 mg 10/11/24 09:00 10/11/24 09:07 Tamsulosin Hcl 0.4 Mg Capsule PO 11/10/24 08:59 0.4 mg QDAY EHSAN Administration Plan Summary: An 89 years old male with past medical history of CAD status post PCI, diabetes mellitus, hypothyroidism, parkinsonism, history of CVA, BPH, dementia, abdominal aortic aneurysm, COPD on hospice care at home who presented to the ED with complaint of altered mental status. Found to have hypoglycemia, glucose of 29. Admitted on observation for close monitoring. #Acute encephalopathy secondary to hypoglycemia #Severe hypoglycemia Patient presented with altered mental status Head CT negative for acute hemorrhage, mass effect or midline shift Was found to have glucose level of 29 Was started on D5W 10 % at 100 cc/h Glucose level improved at 71 this evening Transition to oral feed yesterday, however his blood sugar dipped to 48 Plan ? Glucose check every 4 hours ? Hypoglycemia protocol in place ? Consider resuming the patient on D10 W if needed #Electrolyte imbalances #Hypokalemia #Hypomagnesemia Patient has potassium of 3.2 and magnesium 1.4 Repleted total of 80 mEq potassium and 2 g magnesium on admission Plan ?Daily CMP #Elevated liver enzymes. #IVC mass Patient has AST/ALT/ALP of 244/134/731 Also complains of bilateral lower limb edema Likely from congestion secondary to the mass compressing IVC Patient had echocardiography on last visit, was followed by cardiology, stated no finding on abdominal ultrasound more likely to be a mass Follow-up with daily CMP #Insulin-dependent type 2 diabetes Hemoglobin A1c from last visit 9.5 Patient on Lantus 25 at home Holding insulin regimen in setting of hypoglycemia #Dementia #Parkinsons Resumed memantine, carbidopa levodopa and donepezil #Hyperlipidemia #History of CVA Resumed home aspirin #Hypothyroidism Resumed home levothyroxine # BPH Resumed tamsulosin Hospital Maintenance: FEN: Regular diet DVT ppx: Lovenox GI ppx: Protonix IV lines: PIV Alexandra: None Code status: DNR/DNI Dispo: Telemetry admission, possible discharge tomorrow - Patient's plan and care discussed with my attending, Dr. Bjorn Torres MD Internal Medicine PGY-2 Attending Provider Attestation/Addendum I attest that I was physically present for the evaluation, physical examination, lab and imaging review of the patient with the residents. I discussed the case with the residents and agree with the findings and plans of care as documented above. Kathy Pineda MD
[2024-10-11] MEDS: MEMANTINE HCL 5 MG TABLET PO (20:21)
[2024-10-11] MEDS: DONEPEZIL HCL 5 MG TABLET 10 MG PO (20:21)
[2024-10-12] VITALS (9 sets, daily range): BP systolic 93–141; BP diastolic 60–92; PULSE 88–105; RESP 12–17; TEMP 36.2–36.6; O2SAT 95–100; BMI 28.3
[2024-10-12] MEDS: DEXTROSE 50%-WATER INJ 50 ML SYRINGE 25 ML IV (05:19)
[2024-10-12] MEDS: LEVOTHYROXINE SODIUM 25 MCG TABLET 50 MCG PO (05:52)
[2024-10-12 06:15] LABS: Basophils # (Auto) 0.1 Thou/mm3 (0.0-0.2); Basophils % (Auto) 1 % (0-2.5); Eosinophils # (Auto) 0.3 Thou/mm3 (0.0-0.5); Eosinophils % (Auto) 3 % (0-10); Hematocrit 37.9 % (41.0-53.0); Hemoglobin 12.1 g/dL (13.5-16.0); Immature Granulocytes % (Auto) 2 % (0-0); Immature Granulocytes Auto 0.28 Thou/mm3 (0.00-0.00); Lymphocytes # (Auto) 2.7 Thou/mm3 (1.0-4.8); Lymphocytes % (Auto) 22 % (10-50); Mean Corpuscular HGB Conc 31.9 g/dl (31.0-37.0); Mean Corpuscular Volume 88 fL (80-100); Monocytes # (Auto) 1.2 Thou/mm3 (0.0-0.8); Monocytes % (Auto) 10 % (0-12); Neutrophils # (Auto) 7.7 Thou/mm3 (1.8-7.7); Neutrophils % (Auto) 63 % (37-80); Nucleated Red Blood Cell # 0.02 Thou/mm3 (0.00-0.00); Nucleated Red Blood Cell % 0 /100 WBC (0); Platelet Count 409 Thou/mm3 (140-440); RDW Standard Deviation 52.7 fL (35.1-43.9); Red Blood Count 4.32 Miln/mm3 (4.50-5.90); White Blood Count 12.2 Thou/mm3 (3.8-10.6)
[2024-10-12 06:38] LABS: Alanine Aminotransferase 48 U/L (10-49); Albumin, Serum 3.6 gm/dL (3.4-4.8); Albumin/Globulin Ratio 1.3 (1.2-2.2); Alkaline Phosphatase 742 U/L (46-116); Anion Gap 7 (7-16); Aspartate Amino Transferase 188 U/L (0-34); BUN/Creatinine Ratio 22 Ratio (12-20); Blood Urea Nitrogen 22 mg/dL (9-23); Calcium 8.7 mg/dL (8.3-10.6); Carbon Dioxide 32.7 mMol/L (20.0-31.0); Chloride 98 mMol/L (98-107); Estimated Creatinine Clearance 44.8 mL/min (>60); Globulin 2.8 gm/dL (2.3-3.5); Osmolality,Calculated 274 (275-295); Potassium 3.7 mMol/L (3.4-5.1); Sodium 138 mMol/L (136-145); Total Protein 6.4 gm/dL (5.7-8.2); eGFR > 60 See Note
[2024-10-12 06:39] LABS: Glucose 34 mg/dL (74-106)
[2024-10-12] MEDS: POTASSIUM CHLORIDE 10% 20 MEQ/15 ML UDC 40 MEQ PO (10:23)
[2024-10-12] MEDS: ENOXAPARIN SOD INJ 40 MG/0.4 ML SYRINGE SC (10:24)
[2024-10-12] MEDS: TAMSULOSIN HCL 0.4 MG CAPSULE PO (10:24)
[2024-10-12] MEDS: ASPIRIN EC 81 MG TABEC PO (10:24)
[2024-10-12] MEDS: CARBIDOPA/LEVODOPA CR 50/200 TABCR 1 TAB PO ×2 (10:27→20:54)
--- NOTE | 2024-10-12 16:45 | ESPR_ITS ---
Documentation for date of: 10/12/24 Subjective Subjective Interval history: Patient was seen and examined at bedside. Patient was tolerating feeding well. Overnight patient blood sugar decreased to 48 and this morning has blood sugar decreased to 38. Patient was given D50W reports the patient, hypoglycemia protocol in place. Included D50 and glargine. Will keep close monitoring every 4 hours especially during the night as the patient reportedly was overdosed on insulin glargine. 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 Objective Labs 10/13/24 05:12 10/13/24 05:12 Labs: Laboratory Results - last 24 hr 10/12/24 04:24 WBC 12.2 H RBC 4.32 L Hgb 12.1 L Hct 37.9 L MCV 88 MCH 28.0 MCHC 31.9 RDW Std Deviation 52.7 H Plt Count 409 D Neut % (Auto) 63 Lymph % (Auto) 22 [place] % (Auto) 10 Eos % (Auto) 3 Baso % (Auto) 1 Neut # (Auto) 7.7 Lymph # (Auto) 2.7 [place] # (Auto) 1.2 H Eos # (Auto) 0.3 Baso # (Auto) 0.1 Immature Gran # (Auto) 0.28 H Absolute Nucleated RBC 0.02 H Immature Gran % 2 H Nucleated RBC % 0 Sodium 138 Potassium 3.7 D Chloride 98 Carbon Dioxide 32.7 H Anion Gap 7 BUN 22 Creatinine 1.0 Estim Creat Clear Calc 44.8 L eGFR > 60 BUN/Creatinine Ratio 22 H Glucose 34 L* D Calculated Osmolality 274 L Calcium 8.7 Corrected Calcium 9.0 Total Bilirubin 1.0 AST 188 H ALT 48 Alkaline Phosphatase 742 H D Total Protein 6.4 Albumin 3.6 Globulin 2.8 Albumin/Globulin Ratio 1.3 Quality Measures Quality Measures none Advance care planning discussed with:: patient Assessment & Plan Assessment Current Active Medications: Generic Name Dose Route Start Last Admin Trade Name Freq PRN Reason Stop Dose Admin Acetaminophen 650 mg 10/10/24 18:51 Acetaminophen 325 Mg Tablet PO 11/09/24 18:50 Q6H PRN Fever >101.5 Acetaminophen 650 mg 10/10/24 18:51 Acetaminophen 325 Mg Tablet PO 11/09/24 18:50 Q6H PRN PAIN SCALE 1-3 (mild Aspirin 81 mg 10/11/24 09:00 10/12/24 10:24 Aspirin Ec 81 Mg Tabec PO 11/10/24 08:59 81 mg QDAY EHSAN Administration Carbidopa/Levodopa 1 tab 10/11/24 09:15 10/12/24 10:27 Carbidopa/Levodopa Cr 50/200 Tabcr PO 11/10/24 09:14 1 tab BID EHSAN Administration Dextrose 25 ml 10/10/24 11:23 10/12/24 05:19 Dextrose 50%-Water Inj 50 Ml Syringe IV 11/09/24 11:22 25 ml Q15MIN PRN Administration BG 50-70 responsive npo pt Dextrose 50 ml 10/10/24 11:23 Dextrose 50%-Water Inj 50 Ml Syringe IV 11/09/24 11:22 Q15MIN PRN BG <50 OR BG <70 & pt unresponsive Donepezil HCl 10 mg 10/11/24 21:00 10/11/24 20:21 Donepezil Hcl 5 Mg Tablet PO 11/10/24 20:59 10 mg HS EHSAN Administration Enoxaparin Sodium 40 mg 10/11/24 09:00 10/12/24 10:24 Enoxaparin Sod Inj 40 Mg/0.4 Ml Syringe SC 10/25/24 08:59 40 mg QDAY EHSAN Administration Glucagon 1 mg 10/11/24 18:03 Glucagon Inj 1 Mg Vial IM Q15MIN PRN BG <70, and no IV access Dextrose 1,000 mls @ 50 mls/hr 10/12/24 07:46 D10w 1000 Ml IV 10/13/24 03:45 .Q20H EHSAN Levothyroxine Sodium 50 mcg 10/12/24 06:00 10/12/24 05:52 Levothyroxine Sodium 25 Mcg Tablet PO 11/11/24 05:59 50 mcg ACBR EHSAN Administration Memantine 5 mg 10/10/24 21:00 10/11/24 20:21 Memantine Hcl 5 Mg Tablet PO 11/09/24 20:59 5 mg HS EHSAN Administration Ondansetron HCl 4 mg 10/10/24 18:51 Ondansetron Inj 2 Mg/Ml Inj 2 Ml IV 11/09/24 18:50 Q6H PRN NAUSEA OR VOMITING Protocol Tamsulosin HCl 0.4 mg 10/11/24 09:00 10/12/24 10:24 Tamsulosin Hcl 0.4 Mg Capsule PO 11/10/24 08:59 0.4 mg QDAY EHSAN Administration Plan Summary: An 89 years old male with past medical history of CAD status post PCI, diabetes mellitus, hypothyroidism, parkinsonism, history of CVA, BPH, dementia, abdominal aortic aneurysm, COPD on hospice care at home who presented to the ED with complaint of altered mental status. Found to have hypoglycemia, glucose of 29. Admitted on observation for close monitoring. #Acute encephalopathy secondary to hypoglycemia #Severe hypoglycemia Patient presented with altered mental status Head CT negative for acute hemorrhage, mass effect or midline shift Was found to have glucose level of 29 Was started on D5W 10 % at 100 cc/h Glucose level improved at 71 this evening Transition to oral feed yesterday, however his blood sugar dipped to 48 Plan ? Glucose check every 4 hours ? Hypoglycemia protocol in place ? Consider resuming the patient on D10 W if needed #Electrolyte imbalances #Hypokalemia #Hypomagnesemia Patient has potassium of 3.2 and magnesium 1.4 Repleted total of 80 mEq potassium and 2 g magnesium on admission Plan ?Daily CMP #Elevated liver enzymes. 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 Patient has AST/ALT/ALP of 244/134/731 Also complains of bilateral lower limb edema Likely from congestion secondary to the mass compressing IVC Patient had echocardiography on last visit, was followed by cardiology, stated no finding on abdominal ultrasound more likely to be a mass Follow-up with daily CMP #Insulin-dependent type 2 diabetes Hemoglobin A1c from last visit 9.5 Patient on Lantus 25 at home Holding insulin regimen in setting of hypoglycemia #Dementia #Parkinsons Resumed memantine, carbidopa levodopa and donepezil #Hyperlipidemia #History of CVA Resumed home aspirin #Hypothyroidism Resumed home levothyroxine # BPH Resumed tamsulosin Hospital Maintenance: FEN: Regular diet DVT ppx: Lovenox GI ppx: Protonix IV lines: PIV Alexandra: None Code status: DNR/DNI Dispo: Telemetry admission, possible discharge tomorrow - Patient's plan and care discussed with my attending, Dr. Bjorn Torres MD Internal Medicine PGY-2 Attending Provider Attestation/Addendum I attest that I was physically present for the evaluation, physical examination, lab and imaging review of the patient with the residents. I discussed the case with the residents and agree with the findings and plans of care as documented above. At bedside today, patient is states she is feeling well and denies any complaints. But overnight he had an episode where her blood glucose dropped to 38. Patient was given D50. We will continue with hypoglycemia protocol and frequent glucose checks. Insulin regimen on hold currently. Kidney function level and electrolytes have been stable. We will continue to monitor closely with daily CMP. Continues to be on memantine, carbidopa levodopa and donepezil for dementia/parkinsonism. Continues to be on aspirin, levothyroxine and tamsulosin which are his home medications. We will monitor him for 24 more hours after last episode of low blood glucose. Kathy Pineda MD
[2024-10-12] MEDS: MEMANTINE HCL 5 MG TABLET PO (20:54)
[2024-10-12] MEDS: DONEPEZIL HCL 5 MG TABLET 10 MG PO (20:54)
[2024-10-13] VITALS (37 sets, daily range): BP systolic 118–149; BP diastolic 76–98; PULSE 81–107; RESP 7–22; TEMP 36.1–36.4; O2SAT 94–97
[2024-10-13] MEDS: LEVOTHYROXINE SODIUM 25 MCG TABLET 50 MCG PO (05:52)
--- NOTE | 2024-10-13 06:18 | PC.NURSE ---
240 ml of apple juice given to patient
[2024-10-13 06:55] LABS: Basophils # (Auto) 0.1 Thou/mm3 (0.0-0.2); Basophils % (Auto) 1 % (0-2.5); Eosinophils # (Auto) 0.3 Thou/mm3 (0.0-0.5); Eosinophils % (Auto) 3 % (0-10); Hemoglobin 11.5 g/dL (13.5-16.0); Immature Granulocytes % (Auto) 1 % (0-0); Immature Granulocytes Auto 0.12 Thou/mm3 (0.00-0.00); Lymphocytes # (Auto) 1.5 Thou/mm3 (1.0-4.8); Lymphocytes % (Auto) 15 % (10-50); Mean Corpuscular HGB Conc 32.9 g/dl (31.0-37.0); Mean Corpuscular Volume 85 fL (80-100); Monocytes # (Auto) 1.3 Thou/mm3 (0.0-0.8); Monocytes % (Auto) 14 % (0-12); Neutrophils # (Auto) 6.5 Thou/mm3 (1.8-7.7); Neutrophils % (Auto) 66 % (37-80); Nucleated Red Blood Cell % 0 /100 WBC (0); Platelet Count 333 Thou/mm3 (140-440); RDW Standard Deviation 50.8 fL (35.1-43.9); Red Blood Count 4.11 Miln/mm3 (4.50-5.90); White Blood Count 9.8 Thou/mm3 (3.8-10.6)
[2024-10-13 07:01] LABS: Alanine Aminotransferase 45 U/L (10-49); Albumin, Serum 3.5 gm/dL (3.4-4.8); Albumin/Globulin Ratio 1.4 (1.2-2.2); Alkaline Phosphatase 691 U/L (46-116); Anion Gap 7 (7-16); Aspartate Amino Transferase 202 U/L (0-34); BUN/Creatinine Ratio 23 Ratio (12-20); Bilirubin,Total 0.8 mg/dL (0.3-1.2); Blood Urea Nitrogen 21 mg/dL (9-23); Calcium (Corrected) 9.4 mg/dL (8.5-10.1); Chloride 97 mMol/L (98-107); Creatinine (Component) 0.9 mg/dL (0.6-1.3); Estimated Creatinine Clearance 49.7 mL/min (>60); Globulin 2.5 gm/dL (2.3-3.5); Glucose 81 mg/dL (74-106); Osmolality,Calculated 272 (275-295); Potassium 3.9 mMol/L (3.4-5.1); Sodium 135 mMol/L (136-145); eGFR > 60 See Note
[2024-10-13] MEDS: ASPIRIN EC 81 MG TABEC PO (08:33)
[2024-10-13] MEDS: ENOXAPARIN SOD INJ 40 MG/0.4 ML SYRINGE SC (08:33)
[2024-10-13] MEDS: TAMSULOSIN HCL 0.4 MG CAPSULE PO (08:33)
[2024-10-13] MEDS: CARBIDOPA/LEVODOPA CR 50/200 TABCR 1 TAB PO (08:33)
--- NOTE | 2024-10-13 13:09 | PD.RESDS ---
Planned Discharge Date 10/13/24 DS: Providers Provider Date of admission: 10/10/24 18:09 Primary care physician: Lamberto Grey MD Admitting Provider: Kathy Pineda MD Attending Provider on Admission: Kathy Pineda MD Attending Provider on DC: Kathy Pineda MD Discharging Provider: Kathy Pineda MD DS: Diagnosis Problem List Completed Was Problem List Reviewed/Reconciled?: Yes Hospital Course Hospital Course Hospital course: Obdulio is a 89 years old male with past medical history of CAD status post PCI, diabetes mellitus, hypothyroidism, parkinsonism, history of CVA, BPH, dementia, abdominal aortic aneurysm, COPD on hospice care at home who did on October 10, 2024 for acute encephalopathy secondary to severe hypoglycemia due to insulin overdose. Patient had come to the ED with unremarkable vitals. He was worked up and was found to have a blood glucose of 29. Lab results were significant for WBC of 12.5, hemoglobin of 11.4, PT/INR 15.3/1.4, potassium 3.2, BUN/creatinine 28/1.2, magnesium 1.4, AST/ALT T 244/134, ALP 731. Head CT was done, which is negative for acute hemorrhage, mass effect or midline shift. Patient was given glucose in the ED, and was admitted for observation for further monitoring of hypoglycemia. While in the floors patient had reported that he had not taken his Toujeo the night prior. Although Toujeo as low risk for hypoglycemia, it is unknown how many units the patient injected and could have been the reason why he had hypoglycemia. He also had hypoglycemia over a number of days and due to half-life of Toujeo being over 12 hours, and the duration of action being around 36 hours, this could explain the hypoglycemia over the next couple of days. Short acting insulin such as NovoLog in which the patient does take can cause hypoglycemia and is more likely to than long-acting insulin however is unlikely that short acting insulin would cause this patient's hypoglycemia considering that it was over a number of days. Patient was treated with D10 and had frequent blood sugar checks while admitted. On the day of discharge, patient's fasting blood sugar was 81 and bedside glucose fingersticks were well above 150s. We did instructed the patient to holding Toujeo until seeing his PCP, to continue with sliding scale short acting insulin and to resume sugar checks. I also am changing patient's iron dose to every other day as she was taking it 3 times a day for iron deficiency. Patient was discharged with home hospice as this patient was on hospice previously. Discharge Instructions: Follow up with PCP within one week of discharge I am holding your Toujeo, your long acting insulin. Discuss with your PCP in regards to resuming it and at what dose. Continue with sugar checks and short acting insulin sliding scale use Take all medicines as prescribed Return to ER if symptoms return or worsen I am changing your iron dose, take it every other day Follow-up with your primary care doctor in regards to elevated liver enzymes as they were elevated in the hospital, consider CMP lab. Problem list: #Acute encephalopathy secondary to hypoglycemia #Severe hypoglycemia due to insulin overdose #Electrolyte imbalances #Hypokalemia #Hypomagnesemia #Elevated liver enzymes. #IVC mass #Insulin-dependent type 2 diabetes #Dementia #Parkinsons #Hyperlipidemia #History of CVA #Hypothyroidism #BPH #Iron deficiency anemia Discharge summary was reviewed with my attending Dr. Edwin Deng, PGY-1 Time Spent with Patient Time attestation: Total time spent providing and/or coordinating discharge services: Time spent: Less than 30 minutes Exam Vital Signs Temp Pulse Resp BP Pulse Ox O2 Del Method 97.1 F 91 18 118/77 94 L Room Air 10/13/24 08:00 10/13/24 08:00 10/13/24 08:00 10/13/24 08:00 10/13/24 08:00 10/13/24 08:00 Narrative Exam GEN: Frail male patient , Niuean speaker, able to speak full sentences HEENT: NC/AC, PERRLA, oral mucosa moist, neck supple CVS: RRR, S1-S2 present, no murmurs appreciated RESP: CTAB GI: soft,non distended, non tender, NBS MSK: able to move all 4 limbs, +2 lower extremity edema SKIN: warm and dry CONCESSION MANAGER: CN II-XII and Sensation grossly intact. Discharge Plan Plan Patient Disposition: Home w/HOSPICE Patient condition on transfer: Stable Care Plan Goals: Discharge Instructions: Follow up with PCP within one week of discharge I am holding your Toujeo, your long acting insulin. Discuss with your PCP in regards to resuming it and at what dose. Continue with sugar checks and short acting insulin sliding scale use Take all medicines as prescribed Return to ER if symptoms return or worsen I am changing your iron dose, take it every other day Follow-up with your primary care doctor in regards to elevated liver enzymes as they were elevated in the hospital, consider CMP lab. Prescriptions/Referrals Prescriptions/Med Rec: New ferrous sulfate 324 mg (65 mg iron) tablet,delayed release (DR/EC) 324 mg PO Q OTHER DAY 30 Days Qty: 15 0RF Rx Instructions: Take one tablet by mouth every other day Continued tamsulosin [Flomax] 0.4 MG capsule,extended release 24hr 0.8 mg PO DAILY Qty: 0 Levothyroxine * (SYNTHROID *) 50 MCG tablet 50 mcg PO DAILY Qty: 0 Metformin Hcl 1,000 MG tablet 1,000 mg PO BID Qty: 0 acetaminophen [Acetaminophen Extra Strength] 500 mg Tablet 325 mg PO BID PRN (Reason: Pain) carbidopa-levodopa 50-200 mg tablet extended release 1 tab PO BID Patient Comments: TAKE 1 TABLET BY MOUTH TWICE DAILY loratadine 10 mg Tablet 10 mg PO QAM insulin aspart U-100 [Novolog FlexPen U-100 Insulin] 100 unit/mL (3 mL) Insulin Pen 1 sliding scale dose SUBCUT USEASDIRECTD Rx Instructions: if bs >200 no insulin 201-250 3units 251-300 6 units 301-350 9 units 351-400 12 units 401 or > 15 units (DME) blood-glucose meter Kit See Rx Instructions .Route Qty: 1 0RF Rx Instructions: As directed memantine 5 mg tablet 5 mg PO HS Patient Comments: TAKE 1 TABLET BY MOUTH DAILY donepezil 10 mg Tablet 10 mg PO QDAY albuterol sulfate 4 mg Tablet 4 mg PO BID baclofen 10 mg Tablet 10 mg PO HS PRN (Reason: Cramps) gabapentin 300 mg Capsule 300 mg PO QPM omeprazole 20 mg Capsule,Delayed Release(Dr/Ec) 20 mg PO EVERYOTHERDAY Rx Instructions: before a meal aspirin 81 mg Tablet 81 mg PO QPM dutasteride 0.5 mg Capsule 0.5 mg PO QDAY Held insulin glargine U-300 conc [Toujeo SoloStar U-300 Insulin] 300 unit/mL (1.5 mL) insulin pen 25 unit subcut Q24H Hold Instructions: resume with PCP due to severe hypoglycemia Discontinued ferrous sulfate 325 mg (65 mg iron) tablet,delayed release (DR/EC) 325 mg PO TID Patient Comments: TAKE 1 TABLET BY MOUTH THREE TIMES DAILY AFTER A MEAL Referrals: Lamberto Grey MD [Primary Care Provider] - Patient/Caregiver Discharge Instructions Discharge Activity: activity as tolerated Education Materials: Hypoglycemia (Low Blood Sugar) Print Language: Niuean Stand Alone Forms: [facility] Award Info., Patient Portal Info Letter Discharge Order Discharge Orders: Discharge (Routine); Ordered 10/13/24 Ordered By: Lenore Deng Quality Discharge Quality Measures VTE prophylaxis (Lovenox) Attestestation MD Attestation I attest that I was physically present for the evaluation, physical examination, lab and imaging review of the patient with the residents. I discussed the case with the residents and agree with the findings and plans of care as documented above. Kathy Pineda MD
--- NOTE | 2024-10-13 14:59 | PC.SS ---
SS was informed by bedside nurse pt was established with [facility] prior to being hospitalized. SS called and spoke to patient's dtr, Veena who confirmed pt will return home with [facility]. Dtr states she will provide transportation at 5pm. Bedside nurse is aware. SS has sent Hospice referral to [facility] using [facility]. SS has confirmed with Velma Salas from [facility] she has received inquiry and is aware of transport time.
== END 2024-10-13 18:11 | disposition hospice, home (50) | DRG 917 ==
LOC: SERX 17:16 → SERHOLD 18:34 → S2SX 10-13 08:26 → S2NX 10-13 08:26
PROVIDERS: Admitting Provider Student in an Organized Health Care Education/Training Program; Emergency Provider Family Medicine; PCP Family Medicine
DX: T38.3X1A Poisoning by insulin and oral hypoglycemic [antidiabetic] drugs, accidental (unintentional), initial encounter (principal); G93.41 Metabolic encephalopathy; N40.0 Benign prostatic hyperplasia without lower urinary tract symptoms; J44.9 Chronic obstructive pulmonary disease, unspecified; I25.10 Atherosclerotic heart disease of native coronary artery without angina pectoris; F02.80 Dementia in other diseases classified elsewhere, unspecified severity, without behavioral disturbance, psychotic disturbance, mood disturbance, and anxiety; G20.A1 Parkinson's disease without dyskinesia, without mention of fluctuations; E03.9 Hypothyroidism, unspecified; E11.649 Type 2 diabetes mellitus with hypoglycemia without coma; E87.6 Hypokalemia; E83.42 Hypomagnesemia; R74.8 Abnormal levels of other serum enzymes; E78.5 Hyperlipidemia, unspecified; D50.9 Iron deficiency anemia, unspecified; Z86.73 Personal history of transient ischemic attack (TIA), and cerebral infarction without residual deficits; Z98.61 Coronary angioplasty status; Z87.891 Personal history of nicotine dependence; Z79.4 Long term (current) use of insulin; Z66 Do not resuscitate
CPT/HCPCS: 36415; 70450; 80053; 80307; 80320; 80329; 81001; 83735; 84100; 84484; 85025; 85610; 85730; 96365; 96366; 96372; 96375; 99285; G0378; J1650; J1938; J3475; A9270; G0480